=== PATIENT | male | born 1965 | race Caucasian/White ===

== ENCOUNTER → 2018-09-23 14:42 | Outpatient (CLI) | payer BC, SELFPAY ==
[2018-09-23 15:42] LABS: PSA,Total - Annual Screen 3.61 ng/mL (0.00-4.00)
== END ==
PROVIDERS: Family Provider Family Medicine; PCP Family Medicine; Referring Provider Urology; Visit Provider Urology
DX: N40.0 Benign prostatic hyperplasia without lower urinary tract symptoms (principal); Z12.5 Encounter for screening for malignant neoplasm of prostate
CPT/HCPCS: 36415; 84153; G0103

== ENCOUNTER → 2020-10-25 15:07 | Outpatient (CLI) | payer BC, SELFPAY ==
[2020-10-25 16:37] LABS: PSA,Total - Annual Screen 3.36 ng/mL (0.00-4.00)
== END ==
PROVIDERS: PCP Family Medicine; Referring Provider Urology; Visit Provider Urology
DX: Z12.5 Encounter for screening for malignant neoplasm of prostate (principal)
CPT/HCPCS: 36415; 84153; G0103

== ENCOUNTER 2022-02-24 12:07 | Outpatient (CLI) | payer BC, SELFPAY ==
[2022-02-24 15:44] LABS: Anion Gap 10 (5-15); BUN 19 mg/dL (7-18); BUN/Creat Ratio 21.2 RATIO (10-20); Calcium,Total 9.6 mg/dL (8.5-10.1); Chloride 104 mmol/L (98-107); Cholesterol 216 mg/dL (200); EST Glomerular Filtration Rate 92 mL/min (>60); Est Glom Filt Rate - Afr Amer 111 mL/min (>60); Glucose 85 mg/dL (74-106); High Density Lipoprotein 93 mg/dL; Potassium 3.7 mmol/L (3.5-5.1); Sodium Level 140 mmol/L (136-145); Triglycerides 67 mg/dL; Very Low Density Lipoprotein 13 mg/dL (5-40)
== END 2022-02-24 23:59 | disposition home or self-care (01) ==
LOC: MFPLAB 12:08
PROVIDERS: PCP Family Medicine; Referring Provider Family Medicine; Visit Provider Family Medicine
DX: I10 Essential (primary) hypertension (principal)
CPT/HCPCS: 36415; 80048; 80061

== ENCOUNTER → 2022-04-25 | Outpatient (CLI) | payer BC, SELFPAY ==
[2022-04-25 15:42] LABS: Hematocrit 46.2 % (40-54); Hemoglobin 15.7 g/dL (13.0-16.5); Mean Corpuscular Hgb 33.6 pg (27.0-32.0); Mean Corpuscular Volume 98.9 fL (80-94); Mean Platelet Vol. 9.4 fl (6.2-12.0); Platelet Count 273 K/mm3 (150-450); RBC Distribution Width CV 12.7 % (11.6-14.6); RBC Distribution Width SD 46.2 fl (35.1-43.9); Red Blood Count 4.67 M/mm3 (4.6-6.2); White Blood Count 5.7 K/mm3 (4.4-11.0)
[2022-04-25 16:04] LABS: Vitamin B12 327 pg/mL (211-911)
[2022-04-25 16:35] LABS: Thyroid Stim Hormone (TSH) 3.57 uIU/mL (0.358-3.74)
== END | disposition home or self-care (01) ==
PROVIDERS: PCP Family Medicine; Referring Provider Psychiatry & Neurology Neurology; Visit Provider Psychiatry & Neurology Neurology
DX: G25.0 Essential tremor (principal)
CPT/HCPCS: 36415; 82607; 84443; 85027

== ENCOUNTER → 2022-06-01 | Outpatient (CLI) | payer BC, SELFPAY ==
[2022-06-01 14:16] LABS: PSA,Total - Annual Screen 3.61 ng/mL (0.00-4.00)
== END | disposition home or self-care (01) ==
LOC: LAB 13:15
PROVIDERS: PCP Family Medicine; Referring Provider Urology; Visit Provider Urology
DX: Z12.5 Encounter for screening for malignant neoplasm of prostate (principal)
CPT/HCPCS: 36415; 84153; G0103

== ENCOUNTER → 2023-05-14 | Outpatient (CLI) | payer BC, SELFPAY ==
[2023-05-14 15:18] LABS: Protein, Urine (Random) 30.6 mg/dL (<11.9); Protein:Creat Ratio 152 mg/g CRE (0-200)
[2023-05-14 15:34] LABS: Anion Gap 6 (5-15); BUN 39 mg/dL (7-18); BUN/Creat Ratio 28.7 RATIO (10-20); Calcium,Total 9.6 mg/dL (8.5-10.1); Chloride 104 mmol/L (98-107); Cholesterol 229 mg/dL (200); Creatinine, Serum 1.36 mg/dL (0.70-1.30); EST Glomerular Filtration Rate 57 mL/min (>60); Est Glom Filt Rate - Afr Amer 69 mL/min (>60); Glucose 111 mg/dL (74-106); High Density Lipoprotein 54 mg/dL; PSA,Total - Annual Screen 4.53 ng/mL (0.00-4.00); Potassium 3.7 mmol/L (3.5-5.1); Sodium Level 139 mmol/L (136-145); Triglycerides 161 mg/dL; Very Low Density Lipoprotein 32 mg/dL (5-40)
[2023-05-14 15:51] LABS: Vitamin B12 640 pg/mL (211-911)
== END | disposition home or self-care (01) ==
LOC: MFPLAB 13:45
PROVIDERS: PCP Family Medicine; Visit Provider Family Medicine
DX: Z12.5 Encounter for screening for malignant neoplasm of prostate (principal); I10 Essential (primary) hypertension; F32.A Depression, unspecified
CPT/HCPCS: 36415; 80048; 80061; 82570; 82607; 84153; 84156; G0103

== ENCOUNTER → 2023-09-07 | Outpatient (CLI) | payer BC, SELFPAY ==
[2023-09-07 17:39] LABS: Absolute Lymphocyte Count 1.03 X10^3/uL (0.83-4.51); Absolute Neutrophil Count 3.8 X10^3/uL (2.0-7.7); Basophil# 0.04 X10^3/uL; Basophil% 0.7 % (0-1); Eosinophil# 0.13 X10^3/uL; Eosinophils% 2.4 % (0-5); Hematocrit 39.1 % (40-54); Hemoglobin 13.3 g/dL (13.0-16.5); Lymphocyte # 1.03 X10^3/ul (0.83-4.51); Lymphocyte % 18.7 % (19-41); Mean Corpuscular Hgb 33.4 pg (27.0-32.0); Mean Corpuscular Volume 98.2 fL (80-94); Mean Platelet Vol. 9.6 fl (6.2-12.0); Monocyte# 0.47 X10^3/uL; Monocyte% 8.5 % (0-10); NRBC Flagged by Analyzer 0 % (0-5); Neutrophil # 3.82 X10^3/uL (2.7-7.7); Neutrophil % 69.5 % (47-70); Platelet Count 265 K/mm3 (150-450); RBC Distribution Width SD 46.2 fl (35.1-43.9); Red Blood Count 3.98 M/mm3 (4.6-6.2); White Blood Count 5.5 K/mm3 (4.4-11.0)
[2023-09-07 18:14] LABS: AST(SGOT) 39 U/L (15-37); Alanine Aminotransfer ALT/SGPT 42 U/L (16-61); Albumin, Serum 3.7 g/dL (3.2-5.0); Alkaline Phosphatase 95 U/L (45-117); Anion Gap 9 (5-15); BUN 17 mg/dL (7-18); Calcium,Total 9.2 mg/dL (8.5-10.1); Chloride 109 mmol/L (98-107); Creatinine, Serum 1.06 mg/dL (0.70-1.30); EST Glomerular Filtration Rate 76 mL/min (>60); Est Glom Filt Rate - Afr Amer 92 mL/min (>60); Globulin 3.6 g/dL (2.2-4.2); Glucose 93 mg/dL (74-106); Potassium 3.9 mmol/L (3.5-5.1); Protein, Total 7.3 g/dL (6.4-8.2); Sodium Level 143 mmol/L (136-145); Thyroid Stim Hormone (TSH) 3.74 uIU/mL (0.358-3.74)
== END | disposition home or self-care (01) ==
LOC: MFPLAB 15:27
PROVIDERS: PCP Family Medicine; Visit Provider Family Medicine
DX: R00.0 Tachycardia, unspecified (principal)
CPT/HCPCS: 36415; 80053; 84443; 85025

== ENCOUNTER → 2023-09-10 | Outpatient (CLI) | payer BC, SELFPAY ==
[2023-09-10 17:18] LABS: Vitamin B12 453 pg/mL (211-911)
== END | disposition home or self-care (01) ==
LOC: MFPLAB 10:59
PROVIDERS: PCP Family Medicine; Visit Provider Family Medicine
DX: E78.5 Hyperlipidemia, unspecified (principal)
CPT/HCPCS: 36415; 82607; 82746

== ENCOUNTER → 2023-11-30 | Outpatient (CLI) | payer BC, SELFPAY ==
[2023-11-30 14:43] LABS: PSA,Total- Diagnostic 3.43 ng/mL (0.0-4.0)
== END | disposition home or self-care (01) ==
LOC: LAB 13:17
PROVIDERS: PCP Family Medicine; Referring Provider Urology; Visit Provider Urology
DX: R97.20 Elevated prostate specific antigen [PSA] (principal)
CPT/HCPCS: 36415; 84153

== ENCOUNTER → 2024-05-20 | Outpatient (CLI) | payer BC, SELFPAY ==
--- NOTE | 2024-05-20 11:10 | RAD_ITS ---
EXAM: XR Right Hip With Pelvis When Performed, 2 or 3 Views CLINICAL INDICATION: PAIN TECHNIQUE: Two or three views of the right hip with pelvis when performed. COMPARISON: No relevant prior studies available. FINDINGS: BONES/JOINTS: Moderate degenerative changes of the hip joint. No acute fracture. No dislocation. SOFT TISSUES: Unremarkable. RAD/HIP, UNI W/ Pelvis 2-3 Views IMPRESSION: Degenerative changes as above. Reading Location: [facility]
[2024-05-20 19:05] LABS: Anion Gap 17 (5-15); BUN 28 mg/dL (4-19); BUN/Creat Ratio 22.9 RATIO (10-20); Calcium,Total 9.8 mg/dL (7.6-11.0); Carbon Dioxide 19.4 mmol/L (21.0-32.0); Chloride 100 mmol/L (98-108); Cholesterol 115 mg/dL (<=200); Creatinine, Serum 1.22 mg/dL (0.70-1.20); EST Glomerular Filtration Rate 67 (>60); Glucose 90 mg/dL (70-99); High Density Lipoprotein 55 mg/dL; Low Density Lipoprotein Calc. 33 mg/dL; PSA,Total - Annual Screen 3.51 ng/mL (0.02-4.00); Sodium Level 137 mmol/L (133-145); Triglycerides 137 mg/dL; Very Low Density Lipoprotein 27 mg/dL (5-40); cholesterol:hdl ratio screen 2.09
[2024-05-20 19:36] LABS: Protein, Urine (Random) 30.1 mg/dL (0.0-12.0); Protein:Creat Ratio 141 mg/g CRE (0-200)
[2024-05-20 23:17] LABS: Vitamin B12 1142 pg/mL (211-911)
== END | disposition home or self-care (01) ==
PROVIDERS: PCP Family Medicine; Referring Provider Family Medicine; Visit Provider Family Medicine
DX: M25.551 Pain in right hip (principal); F32.A Depression, unspecified; I10 Essential (primary) hypertension; Z12.5 Encounter for screening for malignant neoplasm of prostate
CPT/HCPCS: 36415; 73502; 80048; 80061; 82570; 82607; 84153; 84156; G0103

== ENCOUNTER → 2025-02-03 | Outpatient (CLI) | payer BC, SELFPAY ==
[2025-02-03 17:58] LABS: AST(SGOT) 37 U/L (<=37); Alanine Aminotransfer ALT/SGPT 41 U/L (<=46); Albumin, Serum 4.5 g/dL (3.4-4.8); Alkaline Phosphatase 105 U/L (40-129); Anion Gap 16 (5-15); BUN 41 mg/dL (4-19); BUN/Creat Ratio 27.1 RATIO (10-20); Calcium,Total 10.3 mg/dL (7.6-11.0); Carbon Dioxide 25.5 mmol/L (21.0-32.0); Chloride 98 mmol/L (98-108); Globulin 3.3 g/dL (2.2-4.2); Glucose 106 mg/dL (70-99); Potassium 3.5 mmol/L (3.3-5.1)
[2025-02-03 18:03] LABS: Creatinine, Urine (random) 194.00 mg/dL (39.00-259.00); Microalbumin,Random Urine 29.7 mg/L (<20 mg/L)
[2025-02-03 18:16] LABS: Hematocrit 40.5 % (40-54); Hemoglobin 13.7 g/dL (13.0-16.5); Immature Granulocytes Count 0.030 X10^3/uL (0.0-0.0); Mean Corp Hgb Conc 33.8 g/dL (32-36); Mean Corpuscular Volume 93.5 fL (80-94); Mean Platelet Vol. 10.0 fl (6.2-12.0); NRBC Flagged by Analyzer 0 % (0-5); Platelet Count 292 K/mm3 (150-450); RBC Distribution Width CV 12.8 % (11.6-14.6); RBC Distribution Width SD 43.7 fl (35.1-43.9); Red Blood Count 4.33 M/mm3 (4.6-6.2); White Blood Count 6.1 K/mm3 (4.4-11.0)
--- OUTSIDE RECORDS SUMMARY | 2025-02-03 18:33 | XMS RPT_ITS | CCD ---
Author Organization [facility] CliniSyct Care Team Providers Care Website Developer Name Role Phone Serenity Marcos Unavailable Unavailable Nicole, Marlon Santiago Unavailable Unavailable Nicole, Dylan Unavailable Unavailable Thomae, Tam R Unavailable Unavailable Jollhyun, Serenity Sierra Unavailable Unavailable Thomae, Tam R Unavailable Unavailable JoSerenity hernandez Unavailable Unavailable Serenity Marcos Unavailable Unavailable Tam Odonnell R Unavailable Unavailable Dr. Serenity Marcos Primary Care Provider Dr. Serenity Marcos Referring Provider Dr. Franky Horta Attending Provider Dr. Serenity Marcos Primary Care Provider [phone] Serenity Marcos Referring Provider Dr. Franky Horta Attending Provider Serenity Marcos Unavailable Perez Pickens Unavailable Dr. Perez Pickens Attending Unavail Dr. Serenity Romeo Primary Care Unavail Dr. Serenity Romeo Primary Care Provider [phone] Serenity Marcos Referring Provider [phone] Franky Horta Attending Provider Serenity Marcos MD Primary Care Provider [phone] Dr. Serenity Marcos MD Primary Care Provider [phone] Dr. Serenity Marcos MD Attending Provider Dr. Serenity Marcos MD Referring Provider Dr. Franky Horta MD Attending Provider JOLLIFF, SERENITY ADRIEN Primary Care Unavailable SYSTEM, PROVIDER NOT IN Referring Unavaila ble BRE, PROVIDER NOT IN Attending Unavaila Genaro Benavides Attending Unavailable Jolliff, Serenity S Primary Care Unavailable Jolliff, Serenity S Referring Unavailable Jolliff, Serenity S Primary Care Unavailable Jolliff, Serenity S Attending Unavailable Franky Horta Attending Unavailable Jolliff, Serenity S Primary Care Unavailable Jolliff, Serenity S Referring Unavailable GARRISONYVETTE Admitting Unavailable JOLLIFF, SERENITY ADRIEN Primary Care Unavailable ROSA MXIMENA Attending Unavailable GARRISONYVETTE BELTRAN Referring Unavailable GARRISON, YVETTE OLIVEIRA Admitting Unavailable JOLLIFF, SERENITY ADRIEN Primary Care Unavailable ROSA MXIMENA Attending Unavailable GARRISONYVETTE Referring Unavailable JOLLIFF, SERENITY ADRIEN Primary Care Unavailable JOLLIFF, SERENITY ADRIEN Admitting Unavailable XIMENA CAMARA Attending Unavailable YVETTE GARRISON Referring Unavailable GARRISONYVETTE Attending Unavailable JOLLIFF, SERENITY ADRIEN Primary Care Unavailable GARRISONYVETTE Referring Unavailable JOLLIFF, SERENITY ADRIEN Primary Care Unavailable CRISTO CERVANTES Attending Unavailab le CRISTO CERVANTES Referring Unavailab le JOLLIFF, SERENITY ADRIEN Primary Care Unavailable CRISTO CERVANTES Admitting Unavailab le BILLY, CRISTO LOZA Referring Unavailab le GARRISONYVETTE Admitting Unavailable JOLLIFF, SERENITY ADRIEN Primary Care Unavailable XIMENA CAMARA Attending Unavailable YVETTE GARRISON Referring Unavailable JOLLIFF, SERENITY ADRIEN Primary Care Unavailable CRISTO CERVANTES Admitting Unavailab le BILLY, CRISTO LOZA Attending Unavailab le GARRISONYVETTE Admitting Unavailable JOLLIFF, SERENITY ADRIEN Primary Care Unavailable MISAEL BONILLA Attending Unavailable YVETTE GARRISON Referring Unavailable JOLLIFF, SERENITY ADRIEN Admitting Unavailable JOLLIFF, SERENITY ADRIEN Primary Care Unavailable XIMENA CAMARA Attending Unavailable YVETTE GARRISON Referring Unavailable GARRISONYVETTE Admitting Unavailable JOLLIFF, SERENITY ADRIEN Primary Care Unavailable YVETTE GARRISON Referring Unavailable MISAEL BONILLA Attending Unavailable MIK FORBES Attending Unavailable JOLLIFF, SERENITY ADRIEN Primary Care Unavailable PEPE KARIMI Attending Unavailable JOLLIFF, SERENITY ADRIEN Primary Care Unavailable CRISTO CERVANTES Attending Unavailab le JOLLIFF, SERENITY ADRIEN Primary Care Unavailable SAMMIE STOREY Attending Unavailable CRISTO CERVANTES Admitting Unavailab CRISTO Duque Referring Unavailab le JOLLIFF, SERENITY ADRIEN Primary Care Unavailable YVETTE GARRISON Attending Unavailable JOLLIFF, SERENITY ADRIEN Primary Care Unavailable YVETTE GARRISON Admitting Unavailable GARRISONYVETTE BELTRAN Referring Unavailable JOLLIFF, SERENITY ADRIEN Primary Care Unavailable GARRISONYVETTE SHAFFER Attending Unavailable JOLLIFF, SERENITY ADRIEN Primary Care Unavailable JOLLIFF, SERENITY ADRIEN Referring Unavailable JOLLIFF, SERENITY ADRIEN Admitting Unavailable CRISTO CERVANTES Attending Unavailab le JOLLIFF, SERENITY ADRIEN Primary Care Unavailable Allergies Allergy Classification Reported Allergen(s) Allergy Type Date of Onset Reaction(s) Facility (1 source) acetaminophen / HYDROcodone; Translations: [Vicodin] Drug Allergy [facility] Repository (1 source) Egg; Translations: [Eggs] Propensity to adverse reactions to drug (disorder) [facility] Repository (13 sources) Acetaminophen / HYDROcodone; Translations: [HYDROCODONE-ACET AMINOPHEN] Drug Allergy 5 Unknown, Nausea and vomiting [facility] (5 sources) egg extract; Translations: [EGG] Drug Allergy [address] [facility] Medications Current Medications Medication Drug Class(es) Dates Sig (Normalized) Sig (Original) acetaminophen 325 mg oral tablet (1 source) Start: 12-31-2024 End: 01-10-2025 take 2 tablets by mouth every four hours as needed acetaminophen (TYLENOL) 325 MG tablet Take 2 (two) tablets (650 mg total) by mouth every 4 (four) hours as needed . 30 tablet 12/31/2024 3:11 PM EDT 12/31/2024 01/10/2025 Active aspirin 81 mg delayed release oral tablet (8 sources) Platelet Aggregation Inhibitor, Nonsteroidal Anti-inflammatory Drug Start: 12-31-2024 End: 02-14-2025 take 1 tablet by mouth twice daily in the evening aspirin 81 MG EC tablet Take 1 (one) tablet (81 mg total) by mouth 2 (two) times a day . 90 tablet 12/31/2024 3:11 PM EDT 12/31/2024 02/14/2025 Active Start: 05-27-2024 take 1 tablet by mouth once da payam Aspirin 81 mg tablet Active 81 mg PO daily May 27, 2024 12:00am take 1 tablet by mouth once gonzalo y aspirin 81 MG EC tablet Take 1 (one) tablet (81 mg total) by mouth daily . Active celecoxib 200 mg oral capsule (4 sources) Nonsteroidal Anti-inflammatory Drug Start: 12-31-2024 End: 01-30-2025 take 1 capsule by mouth twice daily in the evening celecoxib (CELEBREX) 200 MG capsule Indications: Status post total replacement of right hip Take 1 (one) capsule (200 mg total) by mouth 2 (two) times a day . 60 capsule 12/31/2024 3:11 PM EDT 12/31/2024 01/30/2025 Active cephalexin 500 mg oral capsule (1 source) Cephalosporin Antibacterial Start: 12-31-2024 End: 01-07-2025 take 1 capsule by mouth three times daily in the evening cephALEXin (KEFLEX) 500 MG capsule Take 1 (one) capsule (500 mg total) by mouth 3 (three) times a day for 7 days . 21 capsule 12/31/2024 3:11 PM EDT 12/31/2024 01/07/2025 Active cetirizine hydrochloride 10 mg oral capsule (5 sources) Histamine-1 Receptor Antagonist Start: 04-25-2022 take 1 capsule by mouth once daily Cetirizine (Allergy Relief (Cetirizine)) 10 mg capsule Active 10 mg PO DAILY April 25, 2022 1:00am cyclobenzaprine hydrochloride 10 mg oral tablet (1 source) Muscle Relaxant Start: 12-31-2024 End: 01-10-2025 take 1 tablet by mouth three times daily as needed for muscle spasms cyclobenzaprine (FLEXERIL) 10 MG tablet Take 1 (one) tablet (10 mg total) by mouth 3 (three) times a day as needed for muscle spasms . 30 tablet 12/31/2024 3:11 PM EDT 12/31/2024 01/10/2025 Active [place] 5-Lls-Fjm-Fish Oil (4 sources) Start: 04-25-2022 [place] 2-Bso-Qya-Fish Oil (Fish Oil) 300-1,000 mg capsule Active 1 NMA PO DAILY April 25, 2022 1:00am Start: 04-25-2022 take 300-1000 mg by mouth once daily [place] 2-Yej-Skp-Fish Oil (Fish Oil) 300-1,000 mg capsule Active 1 CAP PO DAILY April 25, 2022 1:00am Start: 04-25-2022 take 300-1000 mg by mouth once daily [place] 4-Lne-Sxq-Fish Oil (Fish Oil) 300-1,000 mg capsule Active 1 CAP PO DAILY April 25, 2022 12:00am docusate sodium 50 mg / sennosides, pen[facility] 8.6 mg oral tablet (4 sources) Start: 12-31-2024 End: 01-30-2025 take 1 tablet by mouth twice daily in the evening senna-docusate (SENNA-S) 8.6-50 mg Take 1 (one) tablet by mouth 2 (two) times a day . 60 tablet 12/31/2024 3:11 PM EDT 12/31/2024 01/30/2025 Active glucosamine/chondr rai A sod (OSTEO BI-FLEX ORAL) (5 sources) glucosamine/felisa dr rai A sod (OSTEO BI-FLEX ORAL) Take by mouth . Active hydroCHLOROthiazide 25 mg / losartan potassium 100 mg oral tablet (20 sources) Thiazide Diuretic, Angiotensin 2 Receptor You Start: 05-20-2024 losartan-hydrochlo rothiazide (HYZAAR) 100-25 mg per tablet 05/20/2024 Active Start: 08-14-2023 take 1 tablet by get th once daily losartan-hydrochlorothiazide (HYZAAR) 10 0-25 mg per tablet Take 1 (one) tablet by mouth daily . 05/20/2024 Active take 1 tablet by get th once daily Hyzaar 50 mg-12.5 mg oral tablet ; 1 tab (s) orally once a day Quantity: 0 Refills: 0 Ordered: 21-Sep-2022 Gia Nolasco Generic Substitution Allowed magnesium oxide-herbal drugs (Beet Root-Magnesium) 150 mg Tab (7 sources) magnesium oxide- herbal drugs (Beet Root-Magnesium) 150 mg Tab Take by mouth . Active multivitamin (THERAGRAN) per tablet (7 sources) take 1 tablet by mouth once daily multivitamin (THERAGRAN) per tablet Take 1 (one) tablet by mouth daily . Active Multivitamin preparation (3 sources) Start: 04-25-2022 take 1 tablet by mouth once daily Multivitamin Active 1 TABLET PO DAILY April 25, 2022 1:00am Start: 04-25-2022 take 1 tablet by get th once daily Multivitamin Active 1 TABLET PO DAILY April 25, 2022 12:00am Multivitamin tablet (1 source) Start: 04-25-2022 Multivitamin tablet Active 1 {tbl} PO DAILY April 25, 2022 1:00am nabumetone 750 mg oral tablet (19 sources) Nonsteroidal Anti-inflammatory Drug Start: 06-17-2024 End: 06-17-2025 take 1 tablet by mouth twice daily nabumetone (RELAFEN) 750 MG tablet Take 1 (one) tablet (750 mg total) by mouth 2 (two) times a day . 60 tablet 06/17/2024 06/17/2025 Active omega-3 fatty acids/fish oil (fish oil-omega-3 fatty acids) 300-1,000 mg capsule (20 sources) take 2 capsules by mouth once daily omega-3 fatty acids/fish oil (fish oil-omega-3 fatty acids) 300-1,000 mg capsule Take 2 (two) capsules by mouth daily . Active pantoprazole 20 mg delayed release oral tablet (4 sources) Proton Pump Inhibitor Start: 01-01-2025 End: 01-31-2025 take 1 tablet by mouth once daily in the evening pantoprazole (PROTONIX) 20 MG tablet Take 1 (one) tablet (20 mg total) by mouth daily Start: 01/01/25. 30 tablet 12/31/2024 3:11 PM EDT 01/01/2025 01/31/2025 Active 24 hr propranolol hydrochloride 120 mg extended release oral capsule (20 sources) beta-Adrenergic You Start: 04-17-2024 propranoloL (INDERAL LA) 120 MG 24 hr capsule 04/17/2024 Active Start: 03-06-2023 End: 05-27-2024 take 1 capsule by mouth once daily propranoloL (INDERAL LA) 120 MG 24 hr capsule Take 1 (one) capsule (120 mg total) by mouth daily . 04/17/2024 Active Start: 02-27-2023 End: 03-06-2023 take 1 capsule by mouth once daily Propranolol 80 mg capsule,extended release 24 hr Discontinued 80 mg PO DAILY February 27, 2023 1:00am March 06, 2023 5:29pm Start: 04-25-2022 End: 02-27-2023 take 1 capsule by mouth once daily Propranolol 60 mg capsule,extended release 24 hr Discontinued 60 mg PO DAILY August 29, 2022 9:07am February 27, 2023 2:37pm propranolol 60 m g oral tablet ; orally once a day Quantity: 0 Refills: 0 Ordered: 21-Sep-2022 Gia Nolasco Generic Substitution Allowed rosuvastatin calcium 10 mg oral tablet (20 sources) HMG-CoA Reductase Inhibitor Start: 08-14-2023 rosuvastatin (CRESTO R) 10 MG tablet Take by mouth daily . 05/24/2024 Active traMADol hydrochloride 50 mg oral tablet (2 sources) Opioid Agonist Start: 01-16-2025 End: 01-23-2025 traMADol (Ultram) 50 mg tablet Indications: Status post total replacement of right hip Take 1 (one) tablet (50 mg total) by mouth every 6 (six) hours as needed for pain (Days supply per fill: 7) . 28 tablet 01/16/2025 01/23/2025 Active Start: 12-31-2024 End: 01-07-2025 traMADol (ULTRAM) 50 mg tabl et Indications: Status post total replacement of right hip Take 1 (one) tablet to 2 (two) tablets (50-100 mg total) by mouth every 6 (six) hours as needed (Days supply per fill: 7) . 40 tablet 12/31/2024 3:11 PM EDT 12/31/2024 01/07/2025 Active Completed/Discontinued Medications Medication Drug Class(es) Dates Sig (Normalized) Sig (Original) atenolol 25 mg oral tablet (4 sources) beta-Adrenergic You Start: 04-25-2022 End: 04-25-2022 take 1 tablet by mouth once daily Atenolol 25 mg tablet Discontinued 25 mg PO DAILY April 25, 2022 1:00am April 25, 2022 12:16pm doxazosin 4 mg oral tablet (5 sources) alpha-Adrenergic You Start: 04-25-2022 End: 02-27-2023 take 1 tablet by mouth once daily Doxazosin 4 mg tablet Discontinued 4 mg PO DAILY April 25, 2022 1:00am February 27, 2023 2:37pm DULoxetine 60 mg delayed release oral capsule (5 sources) Serotonin and Norepinephrine Reuptake Inhibitor Start: 04-25-2022 End: 03-06-2023 take 1 capsule by mouth once daily Duloxetine 60 mg capsule,delayed release(DR/EC) Discontinued 60 mg PO DAILY April 25, 2022 1:00am March 06, 2023 5:27pm omeprazole 40 mg delayed release oral capsule (5 sources) Proton Pump Inhibitor Start: 04-25-2022 End: 08-14-2023 take 1 capsule by mouth once daily Omeprazole 40 mg capsule,delayed release(DR/EC) Discontinued 40 mg PO DAILY April 25, 2022 1:00am August 14, 2023 12:56pm predniSONE 50 mg oral tablet (13 sources) Start: 06-17-2024 End: 08-28-2024 take 1 tablet by mouth once daily predniSONE (DELTASONE) 50 MG tablet Take 1 (one) tablet (50 mg total) by mouth daily . 5 tablet 06/17/2024 08/28/2024 Discontinued (Patient's Request) Problems Active Problems Problem Classification Problem Date Documented Date Episodic/Chronic Essential hypertension (20 sources) Hypertensive disorder; Translations: [Unspecified essential hypertension] Onset: 09-22-2022 09-22-2022 Chronic Malaise and fatigue (2 sources) Fatigue; Translations: [Other fatigue] 10-29-2022 Episodic Nonspecific chest pain (6 sources) Chest pain; Translations: [Chest pain, unspecified] Onset: 09-22-2022 09-21-2022 Episodic Comment on above: CHEST PAIN Osteoarthritis (20 sources) Osteoarthritis of right hip joint; Translations: [Unilateral primary osteoarthritis, right hip] Onset: 07-16-2024 06-19-2024 Chronic Other aftercare (1 source) Other keno terminal operator (current) drug therapy; Translations: [Other keno terminal operator (current) drug therapy] Onset: 09-22-2022 Episodic Other connective tissue disease (3 sources) History of total hip arthroplasty; Translations: [Presence of right artificial hip joint] 01-16-2025 Chronic Other connective tissue disease (4 sources) Presence of right artificial hip joint; Translations: [Presence of right artificial hip joint] Onset: 12-31-2024 Chronic Other hereditary and degenerative nervous system conditions (5 sources) Essential tremor; Translations: [Essential tremor] 04-25-2022 Chronic Other hereditary and degenerative nervous system conditions (2 sources) Essential tremor; Translations: [Essential and other specified forms of tremor] 04-25-2022 Chronic Other non-traumatic joint disorders (3 sources) Hip pain; Translations: [Pain in right hip] 06-05-2024 Episodic Unclassified (10 sources) Autogenerated Problem Onset: 09-05-2024 09-05-2024 Past or Other Problems Problem Classification Problem Date Documented Da te Episodic/Chronic Esophageal disorders (11 sources) Esophagitis; Translations: [Esophagitis] Onset: 02-17-2005 09-03-2024 Episodic Other non-traumatic joint disorders (3 sources) Pain in right hip; Translations: [Pain in right hip] Onset: 05-30-2024 Episodic Residual codes; unclassified (2 sources) Pain, unspecified; Translations: [Pain, unspecified] Onset: 06-17-2024 Episodic Results Test Name Value Interpretation Reference Range Facility OP NOTEon 12-31-2024 OP NOTE ATTENDING PHYSICIAN CRISTO CERVANTES MD PRIMARY CARE PHYSICIAN SERENITY MARCOS MD ADMITTING PHYSICIAN CRISTO CERVANTES MD PREOPERATIVE DIAGNOSIS Right hip degenerative arthrosis. POSTOP DIAGNOSIS Right hip degenerative arthrosis. PROCEDURE Robotic-assisted right total hip replacement. Spinal anesthetic. No intraoperative complications. SPECIMENS Bone. ESTIMATED BLOOD LOSS 100 cc. APPROACH Posterior. HISTORY Wilmer is a 59-year-old patient significant history of right hip degenerative arthrosis, unresponsive to conservative measures; for further details see admission history and physical examination, explained all risks, complications of surgery including, but not limited to other risk of infection, bleeding, neurologic or vascular injury, the possibility of deep venous thrombosis, pulmonary embolism, myocardial infarction, stroke, or even with surgery. Explained the possibilities of continued pain, stiffness, loss of range of motion, as well as need for future surgery, talked about the possibility of leg length discrepancy, septic or aseptic loosening, fracture during or after the case, as well as dislocation. Patient understands that at this time consents for surgical intervention. PROCEDURE IN DETAIL Patient met in the preoperative holding area where the right hip was confirmed to be the appropriate site and marked by myself. Patient was taken to the operative suite, given preoperative Kefzol per protocol, as well as a spinal anesthetic, placed in the left lateral decubitus position. Right hip was then sterilely prepped and draped using ChloraPrep solution. After sterilization of the right hip we did our final timeout to confirm that the right hip was in fact the appropriate site that had been marked by myself. We then went and made our skin incision over the iliac crest and synchronized the iliac crest with the robot. We then made our skin incision over the greater trochanter coursing posteriorly. Iliotibial band and gluteal fascia were split in line with skin incision. At this time, the proximal femoral checkpoint was placed. After the femur was synchronized with the robot and the iliac crest was synchronized with the robot, we then went ahead and did our posterior approach to the hip, removing the piriformis and short external rotators off the proximalfemur. Femoral head was dislocated. Osteotomy cut was made. Deep retractors were placed. Acetabulum was cleaned of all redundant tissue, robotically mapped and reamed to a size 52 shell. We did IrriSept irrigation, injected local anesthetic around the acetabulum. We then went ahead and placed our size 52 Trident PSL acetabular shell in 25 degrees of anteversion, 40 degrees of lateral inclination using robotic assistance. After the acetabular shell was in place, there was excellent fit and fill. No screws were felt required. We then placed our ultra-high molecular weight polyethylene to accept a 36 mm head. We then went to the femur, did sequential broaching, settled on a size 4 stem with a 36 x 0 femoral head. After the implants were selected, we injected local anesthetic around the proximal femur. We then placed our final femoral implant, as well as our final femoral head. Hip was reduced at this time. The leg lengths were felt to be equal. There was excellent stability. X-ray confirmed good positioning of all implants. We then went ahead and did our final copious Surgiphor, as well as IrriSept irrigation. We sprinkled 1 g of vancomycin powder throughout the contact surface areas of the right hip. Piriformis and short external rotators were reapproximated using #2 Vicryl. On Q pain catheter was placed deep to the iliotibial band and gluteal fascia. #1 StrataFix was used to reapproximate iliotibial band and gluteal fascia. Final series of local was injected subcutaneously. 2-0 and 3-0 Stratafix were used to reapproximate skin edges. Prineo dressing was applied, as well as a Mepilex dressing. Patient was then taken to PACU without intraoperative complication. D 12/31/2024 09:11 [id number] T 12/31/2024 09:42 MCB/MODL AUTHENTICATED BY CRISTO CERVANTES, ON 12/31/2024 17:20:52 Normal [facility] POC GLUCOSE - [facility] 025 Glucose [Mass/Vol] 84 mg/dL Normal 65-99 [facility] Glucose [Mass/Vol] 132 mg/dL High 65-99 [facility] TISSUE EXAMon 12-31-2024 TISSUE EXAM Surgical Pathology Report Case: [id number] Authorizing Provider: Cristo Cervantes MD Collected: 12/31/2024 08:03 AM Ordering Location: [facility] Periop Received: 12/31/2024 12:36 PM Pathologist: Mustapha Dominguez IV, MD Specimen: Femoral Head, Right, femoral head A. Hip, Right, total arthroplasty: Total hip arthroplasty with findings consistent with degenerative joint disease. at 1223 EDT Primary osteoarthritis of right hip [M16.11] A. The specimen is received in formalin designated femoral head, right and consists of a femoral head with attached femoral neck measuring 4.9 x 4.8 x 6 cm. The articular surface is coarsely granular and eroded. Osteophytes are present. The attached femoral neck is intact and the underlying cancellous bone appears sclerotic with a small well demarcated yellow lesion near the fovea measuring 1.5 x 1.5 x 1 cm. A scant amount of soft tissue is present. The specimen is submitted for decalcification. Cassettes 1 and 2 contain motor vehicle representative sections. JK Gross examination performed at: [facility] - [address] [place] [address] Microscopic examination is performed. Normal [facility] Comment on above: Performed By: #### [id number] ####[address] [address] Jesse Triplett M.D. [id number] XR HIP RIGHT 2-3 VIEWS (ROUT INE)on 12-31-2024 XR HIP RIGHT 2-3 VIEWS (ROUTINE) EXAMINATION: XR HIP RIGHT 2-3 VIEWS (ROUTINE) 12/31/2024 9:00 am HISTORY: ORDERING SYSTEM PROVIDED HISTORY: R YIMI, TECHNOLOGIST PROVIDED HISTORY: Illness/Other Reason for exam: R YIMI Cancer History: u Surgery, RadiationHistory: u Encounter Type: Subsequent/Follow-up Additional signs and symptoms: R HIP PAIN ORDERING SYSTEM PROVIDED DIAGNOSIS CODES: M16.11 Primary osteoarthritis of right hip Z01.812 Blood tests prior to treatment or procedure IMPRESSION: FINDINGS/ Arthroplasty without complication. No acute fracture or dislocation Workstation ID: [id number] Dictated by: PETER WHITTINGTON on SunDec 31, 2024 12:28:05 PM EDT Transcribed by: PETER WHITTINGTON on SunDec 31, 2024 12:28:05 PM EDT Finalized by: PETER WHITTINGTON on SunDec 31, 2024 12:28:05 PM EDT [facility] Comment on above: Order Comment: Injur y/Trauma or Illness?:Illness/OtherHow long have you had these symptoms (acute/chronic)?:UnknownReason for exam?:R THAHistory of cancer?:uSurgeries, chemotherapy, or radiation?:uType of Exam?:Subsequent/Follow-upAdditional signs and symptoms?:R HIP PAIN ECG 12 Leadon 12-17-2024 Sinus Rhythm WITHIN NORMAL LIMITS [place] ECG 12 LeadOrdered By: Daniela Cannon on 12-17-2024 [facility] Work Phone: ECG 12-LEADon 12-17-2024 ECG 12-LEAD Sinus Rhythm WITHIN NORMAL LIMITS [facility] MRSA CultureOrdered By: Stevan Nazario on 12-13-2024 MRSA isol Org specific cx Ql (Unsp spec) No Methicillin Resistant Staphylococcus (MRSA) Isolated [facility] MRSA isol Org specific cx Ql (Unsp spec)Ordered By: Jose Nazario on 12-13-2024 [facility] BASIC METABOLIC PANELon 10-0 Anion gap [Moles/Vol] 18 mmol/L Normal 10-20 [facility] Comment on above: Order Comment: [facility] has implemented the eGFR calculation approach that does not have a coefficient for race that conforms to the NKF-ASN Task Force Recommendations. Performed By: #### [id number] #### LAB [address] [address] Jesse Triplett M.D. [id number] Calcium [Mass/Vol] 10.0 mg/dL Normal 8.4-10.2 [facility] Comment on above: Order Comment: [facility] has implemented the eGFR calculation approach that does not have a coefficient for race that conforms to the NKF-ASN Task Force Recommendations. Performed By: #### [id number] #### LAB [address] [address] Jesse Triplett M.D. [id number] Chloride [Moles/Vol] 101 mmol/L Normal 98-108 [facility] Comment on above: Order Comment: [facility] has implemented the eGFR calculation approach that does not have a coefficient for race that conforms to the NKF-ASN Task Force Recommendations. Performed By: #### 4 [id number] #### LAB [address] [address] Jesse Triplett M.D. [id number] Creatinine [Mass/Vol] 1.24 mg/dL Normal 0.80-1.30 [facility] Comment on above: Order Comment: [facility] has implemented the eGFR calculation approach that does not have a coefficient for race that conforms to the NKF-ASN Task Force Recommendations. Performed By: #### 4 [id number] #### LAB [address] [address] Jesse Triplett M.D. [id number] EGFR 66 mL/min/1.73 m2 Normal >=60 [facility] Comment on above: Order Comment: [facility] has implemented the eGFR calculation approach that does not have a coefficient for race that conforms to the NKF-ASN Task Force Recommendations. Result Comment: Malia mated GFR was calculated using the 2020 CKD-EPI creatinine equation. Performed By: #### 4 [id number] #### LAB [address] [address] Jesse Triplett M.D. [id number] Glucose [Mass/Vol] 93 mg/dL Normal 65-99 [facility] Comment on above: Order Comment: [facility] has implemented the eGFR calculation approach that does not have a coefficient for race that conforms to the NKF-ASN Task Force Recommendations. Performed By: #### 4 [id number] #### LAB [address] [address] Jesse Triplett M.D. [id number] HCO3 (Bld) [Moles/Vol] 25 mmol/L Normal 21-32 [facility] Comment on above: Order Comment: [facility] has implemented the eGFR calculation approach that does not have a coefficient for race that conforms to the NKF-ASN Task Force Recommendations. Performed By: #### 4 [id number] #### LAB [address] [address] Jesse Triplett M.D. [id number] Potassium [Moles/Vol] 3.6 mmol/L Normal 3.5-5.1 [facility] Comment on above: Order Comment: [facility] has implemented the eGFR calculation approach that does not have a coefficient for race that conforms to the NKF-ASN Task Force Recommendations. Performed By: #### 4 [id number] #### LAB [address] [address] Jesse Triplett M.D. [id number] Sodium [Moles/Vol] 140 mmol/L Normal 135-145 [facility] Comment on above: Order Comment: [facility] has implemented the eGFR calculation approach that does not have a coefficient for race that conforms to the NKF-ASN Task Force Recommendations. Performed By: #### 4 [id number] #### LAB [address] [address] Jesse Triplett M.D. [id number] Urea nitrogen [Mass/Vol] 33 mg/dL High 8-25 [facility] Comment on above: Order Comment: [facility] has implemented the eGFR calculation approach that does not have a coefficient for race that conforms to the NKF-ASN Task Force Recommendations. Performed By: #### 4 6124 #### LAB [address] [place], [place] [address] Jesse Triplett M.D. [id number] Urea nitrogen/Creatinine [Mass ratio] 26.6 mg/mg High 10.0-20.0 [facility] Comment on above: Order Comment: [facility] has implemented the eGFR calculation approach that does not have a coefficient for race that conforms to the NKF-ASN Task Force Recommendations. Performed By: #### 4 [id number] #### LAB [address] [place], [place] [address] Jesse Triplett M.D. [id number] Basic metabolic 2000 panelon 12-11-2024 Anion gap [Moles/Vol] 18 mmol/L 10 - 2 0 mmol/L [facility] Calcium [Mass/Vol] 10 mg/dL 8.4 - 10. 2 mg/dL [facility] Chloride [Moles/Vol] 101 mmol/L 98 - 10 8 mmol/L [facility] Creatinine [Mass/Vol] 1.24 mg/dL 0.80 - 1.30 mg/dL [facility] GFR/1.73 sq M.predicted CKD-EPI (S/P/Bld) [Vol rate/Area] 66 - PINF [facility] Comment on above: Estimated GFR was ca lculated using the 2020 CKD-EPI creatinine equation. Glucose [Mass/Vol] 93 mg/dL 65 - 99 mg/dL [facility] HCO3 [Moles/Vol] 25 mmol/L 21 - 32 mmol/L [facility] Interpretation and review of laboratory results Abnormal [facility] Potassium [Moles/Vol] 3.6 mmol/L 3.5 - 5.1 mmol/L [facility] Sodium [Moles/Vol] 140 mmol/L 135 - 145 mmol/L [facility] Urea nitrogen [Mass/Vol] 33 mg/dL High 8 - 25 mg/dL [facility] Urea nitrogen/Creatinine [Mass ratio] 26.6 mg/mg High 10.0 - 20.0 [facility] has implemented the eGFR calculation approach that does not have a coefficient for race that conforms to the NKF-ASN Task Force Recommendations. [facility] CBC AND DIFFERENTIAL - [facility] on 12-11-2024 AUTO NRBC 0.0 % Normal [facility] Comment on above: Performed By: #### L [id number] #### LAB [address] [address] Jesse Triplett M.D. [id number] AUTO NRBC ABS COUNT 0.00 K/mcL Normal 0.00-0.00 [facility] Comment on above: Performed By: #### L [id number] #### [facility] LAB [address] [address] Jesse Triplett M.D. [id number] BASOPHILS ABSOLUTE COUNT 0.05 K/mcL Normal 0.00-0.30 [facility] Comment on above: Performed By: #### L [id number] #### LAB [address] [address] Jesse Triplett M.D. [id number] Basophils/100 WBC (Bld) 0.7 % Normal [facility] Comment on above: Performed By: #### L [id number] #### LAB [address] [address] Jesse Triplett M.D. [id number] Eosinophils (Bld) [#/Vol] 0.43 10*3/uL Normal 0.00-0.50 [facility] Comment on above: Performed By: #### L [id number] #### LAB [address] [address] Jesse Triplett M.D. [id number] Eosinophils/100 WBC (Bld) 5.9 % Normal [facility] Comment on above: Performed By: #### L [id number] #### LAB [address] [place] [address] Jesse Triplett M.D. [id number] Erythrocyte distribution width (RBC) [Ratio] 13.1 % Normal 11.6-14.8 [facility] Comment on above: Performed By: #### L [id number] #### LAB [address] [address] Jesse Triplett M.D. [id number] Hematocrit (Bld) [Volume fraction] 42.0 % Normal 41.0-53.0 [facility] Comment on above: Performed By: #### L [id number] #### LAB [address] [address] Jesse Triplett M.D. [id number] Hemoglobin (Bld) [Mass/Vol] 13.8 g/dL Normal 13.5-17.5 [facility] Comment on above: Performed By: #### L [id number] #### LAB [address] [address] Jesse Triplett M.D. [id number] IG ABSOLUTE 0.04 K/mcL Normal 0.00-0.30 [facility] Comment on above: Performed By: #### L [id number] #### LAB [address] [place] [address] Jesse Triplett M.D. [id number] IG PERCENT 0.60 % Normal [facility] Comment on above: Result Comment: The IG parameter is the percentage of metamyelocytes, myelocytes and promyelocytes. An immature granulocyte count (IG) of 1% or more suggests the possibility of infection, an IG count of 3% is very likely related to an infection. Performed By: #### L [id number] #### LAB [address] [place] [address] Jesse Triplett M.D. [id number] Lymphocytes (Bld) [#/Vol] 1.21 10*3/uL Normal 0.90-4.00 [facility] Comment on above: Performed By: #### L [id number] #### LAB [address] [place] [address] Jesse Triplett M.D. [id number] Lymphocytes/100 WBC (Bld) 16.7 % Normal [facility] Comment on above: Performed By: #### L [id number] #### LAB [address] [place] [address] Jesse Triplett M.D. [id number] MCH (RBC) [Entitic mass] 33.0 pg Normal 26.0-34.0 [facility] Comment on above: Performed By: #### L [id number] #### LAB [address] [address] Jesse Triplett M.D. [id number] MCV (RBC) [Entitic vol] 100.5 fL High 80.0-100.0 [facility] Comment on above: Performed By: #### L [id number] #### LAB [address] [address] Jesse Triplett M.D. [id number] MEAN CORPUSCULAR HEMOGLOBIN CONC 32.9 g/dL Normal 31.0-37.0 [facility] Comment on above: Performed By: #### L [id number] #### LAB [address] [address] Jesse Triplett M.D. [id number] Monocytes (Bld) [#/Vol] 0.64 10*3/uL Normal 0.30-0.90 [facility] Comment on above: Performed By: #### L [id number] #### LAB [address] [address] Jesse Triplett M.D. [id number] Monocytes/100 WBC (Bld) 8.8 % Normal [facility] Comment on above: Performed By: #### L [id number] #### LAB [address] [address] Jesse Triplett M.D. [id number] NEUTROPHILS ABSOLUTE COUNT 4.89 K/mcL Normal 1.70-7.00 [facility] Comment on above: Performed By: #### L [id number] #### MH LAB [address] [address] Jesse Triplett M.D. [id number] Neutrophils/100 WBC (Bld) 67.3 % Normal [facility] Comment on above: Performed By: #### L [id number] #### MH LAB [address] [address] Jesse Triplett M.D. [id number] Platelet mean volume (Bld) [Entitic vol] 9.7 fL Normal 9.4-12.4 [facility] Comment on above: Performed By: #### L [id number] #### LAB [address] [address] Jesse Triplett M.D. [id number] Platelets (Bld) [#/Vol] 254 10*3/uL Normal 150-400 [facility] Comment on above: Performed By: #### L [id number] #### LAB [address] [address] Jesse Triplett M.D. [id number] RBC (Bld) [#/Vol] 4.18 10*6/uL Low 4.50-5.90 [facility] Comment on above: Performed By: #### L [id number] #### LAB [address] [address] Jesse Triplett M.D. [id number] WBC (Bld) [#/Vol] 7.26 10*3/uL Normal 4.50-11.00 [facility] Comment on above: Performed By: #### L [id number] #### LAB [address] [place] [address] Jesse Triplett M.D. [id number] CBC Auto Differentialon Basophils (Bld) [#/Vol] 0.05 10*3/uL [facility] Basophils/100 WBC (Bld) 0.7 % [facility] Eosinophils (Bld) [#/Vol] 0.43 10*3/uL [facility] Eosinophils/100 WBC (Bld) 5.9 % [facility] Erythrocyte distribution width (RBC) [Entitic vol] 13.1 % 11.6 - 14.8 % [facility] Hematocrit (Bld) [Volume fraction] 42 % 41.0 - 53.0 % [facility] Hemoglobin (Bld) [Mass/Vol] 13.8 g/dL 13.5 - 17.5 g/dL [facility] Immature granulocytes (Bld) [#/Vol] 0.04 10*3/uL [facility] Immature granulocytes/100 WBC (Bld) 0.6 % [facility] Comment on above: The IG parameter is the percentage of metamyelocytes, myelocytes and promyelocytes. An immature granulocyte count (IG) of 1% or more suggests the possibility of infection, an IG count of 3% is very likely related to an infection. Interpretation and review of laboratory results Abnormal [facility] Lymphocytes (Bld) [#/Vol] 1.21 10*3/uL [facility] Lymphocytes/100 WBC (Bld) 16.7 % [facility] MCH (RBC) [Entitic mass] 33 pg 26.0 - 34.[address] [facility] MCHC (RBC) [Mass/Vol] 32.9 g/dL 31.0 - 37.0 g/dL [facility] MCV (RBC) [Entitic vol] 100.5 fL High 80.0 - 100.[address] [facility] Monocytes (Bld) [#/Vol] 0.64 10*3/uL [facility] Monocytes/100 WBC (Bld) 8.8 % [facility] Neutrophils (Bld) [#/Vol] 4.89 10*3/uL [facility] Neutrophils/100 WBC (Bld) 67.3 % [facility] Nucleated RBC (Bld) [#/Vol] 0 10*3/uL [facility] Nucleated RBC/100 WBC (Bld) [Ratio] 0 % [facility] Platelet mean volume (Bld) [Entitic vol] 9.7 fL 9.4 - 12.[address] [facility] Platelets (Bld) [#/Vol] 254 10*3/uL [facility] RBC (Bld) [#/Vol] 4.18 10*6/uL [facility] WBC (Bld) [#/Vol] 7.26 10*3/uL [facility] CT HIP RIGHT WITHOUT CONTRAS Ton 12-11-2024 CT HIP RIGHT WITHOUT CONTRAST EXAMINATION: CT HIP RIGHT WITHOUT CONTRAST HISTORY: ORDERING SYSTEM PROVIDED HISTORY: Primary osteoarthritis of right hip. TECHNOLOGIST PROVIDED HISTORY: Illness/Other. Reason for exam: Hip surgical planning, Primary osteoarthritis of right hip. Encounter Type: Initial. ORDERING SYSTEM PROVIDED DIAGNOSIS CODES: M16.11 Primary osteoarthritis of right hip. COMPARISON: None. TECHNIQUE: Axial CT imaging of the pelvis and knees without contrast. Dereck protocol. Dose reduction techniques were achieved by using automated exposure control and/or adjustment of mA and/or kV according to patient size and/or use of iterative reconstruction technique. FINDINGS: Pelvis: No acute osseous abnormality. Severe right hip joint space narrowing with subchondral sclerosis, subchondral cystic changes and large marginal osteophytes, compatible with severe osteoarthritis. Left hip joint space narrowing with mild osteophytic spurring, compatible with mild osteoarthritis. Anterior bridging osteophytes of the sacroiliac joints. At least moderate lower lumbar spondylosis. Limited evaluation of the abdominal and pelvic viscera reveal no acute findings. Mild sigmoid colonic diverticulosis. Prostate gland appears prominent in size. Pelvic muscle bulk appears normal. Suggestion of prior vasectomy. Knees: No acute osseous abnormality. No subluxation or dislocation. Mild symmetric osteophytic spurring of the medial compartments. No significant joint effusions. Muscle bulk appears normal. IMPRESSION: Severe right hip osteoarthritis. [employer] Workstation ID: [id number] Dictated by: GORDO TESFAYE on [facility] Dec 11, 2024 1:11:53 PM EDT Transcribed by: JAYDEN HALEY on [facility] Dec 11, 2024 1:35:39 PM EDT Finalized by: GORDO TESFAYE on [facility] Dec 11, 2024 8:46:53 PM EDT [facility] Comment on above: Order Comment: Gunjan dickerson only schedule at [facility]. Do not schedule Ct scan appointment with patient. Ordering Doctor's office will call to schedule Ct scan appointment.Injury/Trauma or Illness?:Illness/OtherHow long have you had these symptoms (acute/chronic)?:AcuteReason for exam?:Hip surgical planning, Primary osteoarthritis of right hipType of Exam?:InitialAdditional signs and symptoms?:- MRSA CULTURE/SCREENon 2024 MRSA CULTURE/SCREEN MRSA CULTURE No Methicillin Resistant Staphylococcus (MRSA) Isolated [facility] Comment on above: Performed By: #### [id number] #### [facility] [address] [place] [address] Cullen Rincon M.D. [id number] XR ASPIRATION/INJECTION LARG E JOINT RIGHTon 07-31-2024 XR ASPIRATION/INJECTION LARGE JOINT RIGHT EXAMINATION: XR ASPIRATION/INJECTION LARGE JOINT RIGHT HISTORY: ORDERING SYSTEM PROVIDED HISTORY: Primary osteoarthritis of right hip, TECHNOLOGIST PROVIDED HISTORY: Illness/Other Reason for exam: Primary osteoarthritis of right hip Encounter Type: Initial Additional signs and symptoms: Primary osteoarthritis of right hip Fluoro dose in mGy: 22.09 ORDERING SYSTEM PROVIDED DIAGNOSIS CODES: M16.11 Primary osteoarthritis of right hip COMPARISON: None. TECHNIQUE: RADIATION EXPOSURE: Fluoro dose in elayne Hopper mGy: 22.09. Single view was obtained with total fluoro time 0.55 minute. FINDINGS: Patient agreed to a right hip injection. The right hip was marked, cleaned and draped in sterile fashion. 8 mL 1% lidocaine were used for local anesthesia. 20-gauge needle was placed into the joint under fluoroscopy. 5 mL of contrast were injected documenting intraarticular location, and a total of Kenalog 80 mg and bupivacaine 4 mL were injected. The needle was removed. There were no immediate complications. Patient left the department in satisfactory and stable condition. There were severe degenerative changes of the right hip. IMPRESSION: Severe degenerative changes right hip. Satisfactory right hip injection. MA/trw Workstation ID: [id number] Dictated by: FRANCIA OROPEZA on SunJuly 31, 2024 3:48:45 PM EDT Transcribed by: OTF SCHMITZ on SunJuly 31, 2024 3:52:39 PM EDT Finalized by: FRANCIA OROPEZA on SunJuly 31, 2024 4:55:02 PM EDT [facility] Comment on above: Order Comment: Injur y/Trauma or Illness?:Illness/OtherHow long have you had these symptoms (acute/chronic)?:AcuteReason for exam?:Primary osteoarthritis of right hipType of Exam?:InitialAdditional signs and symptoms?:Primary osteoarthritis of right hipFluoro time in minutes:0.5533 secondsFluoro dose in mGy?:22.09 XR LUMBAR SPINE STANDARD WIT H FLEX/EXT 4+ VIEWSon 06-17-2024 XR LUMBAR SPINE STANDARD WITH FLEX/EXT 4+ VIEWS EXAMINATION: XR LUMBAR SPINE STANDARD WITH FLEX/EXT 4+ VIEWS 06/17/2024 1:57 pm HISTORY: ORDERING SYSTEM PROVIDED HISTORY: Pain, TECHNOLOGIST PROVIDED HISTORY: Illness/Other Reason for exam: Right anterior and posterior hip pain x 1 year but has increased over the last 3 months. No injury Cancer History: u Surgery, RadiationHistory: u Encounter Type: Initial Additional signs and symptoms: None ORDERING SYSTEM PROVIDED DIAGNOSIS CODES: R52 Pain COMPARISON: None. FINDINGS: Five views of the lumbar spine were obtained including flexion/extension lateral views. Five lumbar-type vertebrae are present. There is lumbosacral disc space narrowing. Multilevel endplate degenerative changes noted primarily in the lower lumbar spine. Vertebral body heights are maintained. No acute fracture or subluxation. Facet hypertrophy is noted primarily lumbosacral junction L4-L5. Visualized portions of the bony pelvis are unremarkable. Abdominal soft tissues are within normal limits. IMPRESSION: Moderate lower lumbar spondylopathy. SLM/ Workstation ID: [id number] Dictated by: SAMIRA SALAS on [place] Jun 19, 2024 3:51:43 PM EDT Transcribed by: NOVA LOONEY on [facility] Jun 19, 2024 3:59:13 PM EDT Finalized by: SAMIRA SALAS on [facility] Jun 19, 2024 3:59:13 PM EDT [facility] Comment on above: Order Comment: Injur y/Trauma or Illness?:Illness/Other How long have you had these symptoms (acute/chronic)?:Chronic Reason for exam?:Right anterior and posterior hip pain x 1 year but has increased over the last 3 months. No injury History of cancer?:u Surgeries, chemotherapy, or radiation?:u Type of Exam?:Initial Additional signs and symptoms?:None Neurology Visit Reporton Neurology Visit Report [facility] [address] [facility], [address] [place] [address] OFFICE VISIT Date of Service: 05/27/24 MR#: [id number] Acct: [id number] Name: BISI FORD Rep #: [id number] : 1965 Provider: Dr. Franky bagley MD Age/Sex: 59/M Location: [facility]. Status: Signed [facility] Chief Complaint: Neurology 6 MO FU Details: Interim History: Bisi returns for follow-up visit. He has a history of hypertension. He had a COVID-19 infection in March 2021 and at that time began to experience a tremor affecting both hands. The tremor was worse with action and interfered with activities such as writing and using eating utensils. In December 2021, he had another COVID-19 infection and had prominent associated fatigue and during this time had worsening of his tremor. In the latter part of 2021, atenolol was initiated for his hypertension and tremor. Subsequently, his tremor diminished moderately. Per prior assessment, he denied having numbness, focal weakness or gait difficulty. He denied having any tremor prior to March 2021. Although improved his tremor continued to cause occasional interference with writing and using eating utensils. Following a switch of atenolol to propranolol ER in 2022 and subsequent dose increase to 120 mg daily, he has had a reduction of his tremor and no longer has functional impairment due to his tremor. He takes losartan/hydrochloroth iazide. His blood pressure is well-controlled. Per prior assessment, he reported that since March 2021, he has been experiencing mild headaches that have occurred about 1 to 2 days/week. These headaches are retro-orbital headaches. He does not have associated nausea, photophobia or phonophobia. He does not feel the need to take any medication for these headaches. At times, he experiences some blurring of vision with the headaches and this may be triggered by looking at his computer at work for extended periods of time. He denied having headaches prior to March 2021. He has a history of depression and anxiety; he takes duloxetine and this has been of benefit. He had bilateral carpal tunnel surgery in years past. He has had fatigue. A B12 injection was of benefit for his fatigue. He continues to have some fatigue. He had taken a B12 supplement however this was recently discontinued due to a high serum B12 level. Physical Exam: Neuro: The patient is awake and alert and responds appropriately; no tremor is noted when arms are extended; no rigidity is noted in the wrists Heart: regular rate and rhythm Supplemental Info BMP, lipid profile (02/24/2022): Cholesterol 216 (high), BUN 19 (high), creatinine 21.2 (high) CBC, B12, TSH (04/25/22): MCV 98.9 (high), B12 327 (near low end of normal range) BMP, lipid profile, B12 (05/14/2023): Triglycerides 161 (normal), cholesterol 229 (high), LDL 143 (high), VLDL 32 (normal), HDL 54 (normal) BUN 39 (high), creatinine 1.36 (high), EGFR 57 (low), glucose 111 (high) BMP, lipid profile, B12 (05/20/2024): Triglycerides 137 (normal), cholesterol 115 (normal), LDL 33 (normal), HDL 55 (normal), B12 1142 (high), BUN/creatinine ratio 22.9 (high), creatinine 1.22 (high), BUN 28 (high), bicarb 19.4 (low) Assessment and Plan Assessment and Plan (1) Essential tremor: Status: Chronic (2) Hypertension: Status: Chronic Medications: Refilled propranolol ER 120 mg PO QAM 90 caps 3RF Plan Details Additional Comments: The patient has an essential tremor affecting both hands. His tremor had initially caused some functional impairment with activities such as using eating utensils and writing. His tremor began in March 2021 with the occurrence of a COVID-19 infection and worsened later in 2021 following a second COVID-19 infection in December 2021. Propranolol ER has been of benefit for his tremor and hypertension. He no longer has functional impairment due to his tremor and no tremor is noted today. - Propranolol ER 120 mg daily will be continued for his tremor and hypertension. He takes losartan/hydrochloroth iazide for his hypertension. His blood pressure is stable today. He had fatigue since his COVID-19 infections; this improved. His B12 level was previously near the low end of the normal range. A B12 injection was of benefit for his fatigue. He continues to experience some fatigue. He has been taking an oral B12 supplement however this was recently discontinued due to a high B12 level. He has depression and anxiety. - He takes duloxetine. Per prior assessment, he reported that since March 2021, he has been experiencing mild headaches that have occurred about 1 to 2 days/week. These headaches are retro-orbital headaches. He does not have associated nausea, photophobia or phonophobia. He does not feel the need to take any medication for these headaches. At times, he has experienced some blurring of vision with the (more content not included)... Normal [facility] Anion gap in Serum or Plasma Ordered By: Serenity Marcos on 05-20-2024 Anion gap [Moles/Vol] 17 mmol/L High 5-15 [facility] BUN/creatinine ratioOrdered By: Serenity Marcos on 05-20-2024 Urea nitrogen/Creatinine [Mass ratio] 22.9 mg/mg High 10-20 [facility] Basic Metabolic Profile (BMP )on 05-20-2024 BUN/CRE 22.9 RATIO High 10-20 [facility] Comment on above: Order Comment: Order Date: 05/14/23 Order Info: [id number] - BMP Order Info: - LIPID Order Info: [id number] - PSA Performed By: #### L 500.2500, L503.0105, L501.9910, L500.4100 #### [facility] [address] [place], [address] Calcium [Mass/Vol] 9.8 mg/dL Normal 7.6-11.0 [facility] Comment on above: Order Comment: Order Date: 05/14/23 Order Info: 666-03 - BMP Order Info: - LIPID Order Info: 2856-03 - PSA Performed By: #### L 500.2500, L503.0105, L501.9910, L500.4100 #### [facility] [address] [place], [address] Chloride [Moles/Vol] 100 mmol/L Normal 98-108 [facility] Comment on above: Order Comment: Order Date: 05/14/23 Order Info: 666-03 - BMP Order Info: [id number] - LIPID Order Info: [id number] - PSA Performed By: #### L 500.2500, L503.0105, L501.9910, L500.4100 #### [facility] [address] [place], [address] CO2 [Moles/Vol] 19.4 mmol/L Low 21.0-32.0 [facility] Comment on above: Order Comment: Order Date: 05/14/23 Order Info: 666-03 - BMP Order Info: [id number] - LIPID Order Info: [id number] - PSA Performed By: #### L 500.2500, L503.0105, L501.9910, L500.4100 #### [facility] [address] [place], [address] Creatinine [Mass/Vol] 1.22 mg/dL High 0.70-1.20 [facility] Comment on above: Order Comment: Order Date: 05/14/23 Order Info: 666-03 - BMP Order Info: [id number] - LIPID Order Info: 1 - PSA Performed By: #### L 500.2500, L503.0105, L501.9910, L500.4100 #### [facility] [address] [place], [address] GAP 17 High 5-15 [facility] Comment on above: Order Comment: Order Date: 05/14/23 Order Info: 666-03 - BMP Order Info: - LIPID Order Info: [id number] - PSA Performed By: #### L 500.2500, L503.0105, L501.9910, L500.4100 #### [facility] [address] [place], [address] GFR/1.73 sq M.predicted among non-blacks MDRD (S/P/Bld) [Vol rate/Area] 67 mL/min/{1.73_m2} Normal >60 [facility] Comment on above: Order Comment: Order Date: 05/14/23 Order Info: 666-03 - BMP Order Info: - LIPID Order Info: [id number] - PSA Result Comment: mL/m in/1.73m2 CKD-EPI Creatinine Equation (2020) Performed By: #### L 500.2500, L503.0105, L501.9910, L500.4100 #### [facility] [address] [place], [address] Glucose [Mass/Vol] 90 mg/dL Normal 70-99 [facility] Comment on above: Order Comment: Order Date: 05/14/23 Order Info: 666-03 - BMP Order Info: - LIPID Order Info: 2856-03 - PSA Performed By: #### L 500.2500, L503.0105, L501.9910, L500.4100 #### [facility] [address] [place], [address] Potassium [Moles/Vol] 4.0 mmol/L Normal 3.3-5.1 [facility] Comment on above: Order Comment: Order Date: 05/14/23 Order Info: 0667-1 - BMP Order Info: [id number] - LIPID Order Info: [id number] - PSA Performed By: #### L 500.2500, L503.0105, L501.9910, L500.4100 #### [facility] [address] [place], [place], [address] Sodium [Moles/Vol] 137 mmol/L Normal 133-145 [facility] Comment on above: Order Comment: Order Date: 05/14/23 Order Info: 06 - BMP Order Info: - LIPID Order Info: [id number] - PSA Performed By: #### L 500.2500, L503.0105, L501.9910, L500.4100 #### [facility] [address] [place], [address] Urea nitrogen [Mass/Vol] 28 mg/dL High 4-19 [facility] Comment on above: Order Comment: Order Date: 05/14/23 Order Info: 0667-1 - BMP Order Info: [id number] - LIPID Order Info: [id number] - PSA Performed By: #### L 500.2500, L503.0105, L501.9910, L500.4100 #### [facility] [address] [place], [address] Calculated very low density lipoprotein (VLDL) cholesterol measurementOrdered By: Serenity Marcos on 05-20-2024 VLDL Cholesterol 27 mg/dL 5-40 [facility] Carbon dioxide, total [Moles /volume] in Central venous bloodOrdered By: Serenity Marcos on 05-20-2024 CO2 [Moles/Vol] 19.4 mmol/L Low 21.0-32.0 [facility] Chloride assayOrdered By: Kenna Marcos on 05-20-2024 Chloride [Moles/Vol] 100 mmol/L 98-108 [facility] Creatinine Unsp time (U) [Ma ss/Vol]Ordered By: Serenity Marcos on 05-20-2024 Creatinine (U) [Mass/Vol] 214.00 mg/dL 39-259 [facility] GFR/1.73 sq M.predicted marci g non-blacks MDRD (S/P/Bld) [Vol rate/Area]Ordered By: Serenity Marcos on 05-20-2024 Estimated GFR (MDRD) Non-Af Amer 67 >60 [facility] Comment on above: mL/min/1.73m2 CKD-EP I Creatinine Equation (2020) HIP, UNI W/ Pelvis 2-3 Views on 05-20-2024 HIP, UNI W/ Pelvis 2-3 Views [facility] [address] [place] [address] HIP, UNI W/ Pelvis 2-3 Views MR#: [id number] Acct: [id number] Name: BISI FORD Rep #: [id number] : 1965 M 59 From: Francia Schmidt MD PCP: Dr. Serenity Marcos MD Status: REG CLI Study: HIP, UNI W/ Pelvis 2-3 Views Date of Exam: 02/03 Exam# [id number] Ordering Dr: Serenity Marcos MD EXAM: XR Right Hip With Pelvis When Performed, 2 or 3 Views CLINICAL INDICATION: PAIN TECHNIQUE: Two or three views of the right hip with pelvis when performed. COMPARISON: No relevant prior studies available. FINDINGS: BONES/JOINTS: Moderate degenerative changes of the hip joint. No acute fracture. No dislocation. SOFT TISSUES: Unremarkable. RAD/HIP, UNI W/ Pelvis 2-3 Views IMPRESSION: Degenerative changes as above. Reading Location: [facility] CC: Dr. Serenity Marcos MD Casting Repairer: Signed Normal [facility] LDL calc ser/plasOrdered By: Serenity Marcos on 05-20-2024 LDL Cholesterol, Calculated 33 mg/dL [facility] Comment on above: Dpolbxwfww=484-822 m g/dL & Higher Tdwc=770 mg/dL or greater Lipid Profileon 05-20-2024 CHOL:HDL 2.09 Normal [facility] Comment on above: Order Comment: Order Date: 05/14/23 Order Info: 06-1 - BMP Order Info: [id number] - LIPID Order Info: 2856-03 - PSA Performed By: #### L 500.2500, L503.0105, L501.9910, L500.4100 #### [facility] [address] [place], [address] Cholesterol [Mass/Vol] 115 mg/dL Normal <=200 [facility] Comment on above: Order Comment: Order Date: 05/14/23 Order Info: 666-03 - BMP Order Info: - LIPID Order Info: 2856-03 - PSA Result Comment: Chol esterol level, Desirable <200 mg/dL Borderline high cholesterol 200-239 mg/dL High cholesterol >=240 mg/dL Recommendations of the NCEP Adult Treatment Panel for the following risk-cutoff thresholds for the [place] population. Performed By: #### L 500.2500, L503.0105, L501.9910, L500.4100 #### [facility] [address] [place], [place], [id number] [phone] Cholesterol in HDL [Mass/Vol] 55 mg/dL Normal [facility] Comment on above: Order Comment: Order Date: 05/14/23 Order Info: 666-03 - BMP Order Info: [id number] - LIPID Order Info: 2856-03 - PSA Result Comment: Graciela onal Cholesterol Education Program (NCEP) guidelines: <40 mg/dL: Low HDL-cholesterol (major risk factor for CHD) >= 60 mg/dL: High HDL-cholesterol (negative risk factor for CHD) HDL-cholesterol is affected by a number of factors, e.g. smoking, exercise, hormones, sex and age. Performed By: #### L 500.2500, L503.0105, L501.9910, L500.4100 #### [facility] [address] [place], [address] Cholesterol in LDL [Mass/Vol] 33 mg/dL Normal [facility] Comment on above: Order Comment: Order Date: 05/14/23 Order Info: 0667-1 - BMP Order Info: [id number] - LIPID Order Info: [id number] - PSA Result Comment: Bord wymics=482-070 mg/dL Higher Klpn=415 mg/dL or greater Performed By: #### L 500.2500, L503.0105, L501.9910, L500.4100 #### [facility] [address] [place], [address] Cholesterol in VLDL [Mass/Vol] 27 mg/dL Normal 5-40 [facility] Comment on above: Order Comment: Order Date: 05/14/23 Order Info: 06- - BMP Order Info: [id number] - LIPID Order Info: 2856-03 - PSA Performed By: #### L 500.2500, L503.0105, L501.9910, L500.4100 #### [facility] [address] [place], [address] Triglyceride [Mass/Vol] 137 mg/dL Normal [facility] Comment on above: Order Comment: Order Date: 05/14/23 Order Info: 0667-1 - BMP Order Info: [id number] - LIPID Order Info: [id number] - PSA Result Comment: The drugs N-Acetylcysteine and Metamizole may falsely depress this assay. Normal range: <150 mg/dL Borderline High: 150-199 mg/dL High: 200-499 mg/dL Very High: >500 mg/dL Performed By: #### L 500.2500, L503.0105, L501.9910, L500.4100 #### [facility] [address] [place], [address] PSA, total screeningOrdered By: Serenity Marcos on 05-20-2024 Prostate Specific Antigen Screen 3.51 ng/mL 0.02-4.00 [facility] Comment on above: This test was perfor med using the [employer] tPSA method. Measured values of a patient sample can vary depending on the testing procedure used. PSA values determined on patient samples by different testing procedures cannot be used interchangeably. If there is a change in PSA assays while monitoring therapy, sequential testing should be performed to confirm baseline values. PSA,Total - Annual Screenon 05-20-2024 PSA,TOT SCREEN 3.51 ng/mL Normal 0.02-4.00 [facility] Comment on above: Order Comment: Order Date: 05/14/23 Order Info: 0667-1 - BMP Order Info: [id number] - LIPID Order Info: [id number] - PSA Result Comment: This test was performed using the [employer] tPSA method. Measured values of a patient??sample can vary depending on the testing procedure used. PSA values determined on patient samples by different testing procedures cannot be used interchangeably. If there is a change in PSA assays while monitoring therapy, sequential testing should be performed to confirm baseline values. Performed By: #### L 500.2500, L503.0105, L501.9910, L500.4100 #### [facility] [address] [place], [address] Potassium (Unsp spec) [Mass/ Vol]Ordered By: Serenity Marcos on 05-20-2024 Potassium [Moles/Vol] 4.0 mmol/L 3.3-5.1 [facility] Protein+Creatinine Ratio,Uri neon 05-20-2024 PROT:CRE RATIO 141 mg/g CRE Normal 0-200 [facility] Comment on above: Performed By: #### L 501.0900 #### [facility] [address] [place], [address] Protein (U) [Mass/Vol] 30.1 mg/dL High 0.0-12.0 [facility] Comment on above: Performed By: #### L 501.0900 #### [facility] [address] [place], [address] UR CREAT 214.00 mg/dL Normal 39-259 [facility] Comment on above: Performed By: #### L 501.0900 #### [facility] [place], [address] Protein/Creatinine (U) [Mass ratio]Ordered By: Serenity Marcos on 05-20-2024 Urine Protein/Creatinine Ratio 141 mg/g CRE 0-200 [facility] Screening total cholesterol/ high density lipoprotein (HDL) cholesterol ratioOrdered By: Serenity Marcos on 05-20-2024 Cholesterol.total/Chol esterol in HDL [Mass ratio] 2.09 {ratio} [facility] Serum creatinine measurement (mass/volume)Ordered By: Serenity Marcos on 05-20-2024 Creatinine [Mass/Vol] 1.22 mg/dL High 0.70-1.20 [facility] Serum glucose measurement (m ass/volume)Ordered By: Serenity Marcos on 05-20-2024 Glucose [Mass/Vol] 90 mg/dL 70-99 [facility] Serum or plasma calcium rc urement (mass/volume)Ordered By: Serenity Marcos on 05-20-2024 Calcium [Mass/Vol] 9.8 mg/dL 7.6-11.0 [facility] Serum or plasma cholesterol in HDL measurement (mass/volume)Ordered By: Serenity Marcos on 05-20-2024 Cholesterol in HDL [Mass/Vol] 55 mg/dL >40 [facility] Comment on above: National Cholesterol Education Program (NCEP) guidelines:<40 mg/dL: Low HDL-cholesterol (major risk factor for CHD)>= 60 mg/dL: High HDL-cholesterol (negative risk factor for CHD)HDL-cholesterol is affected by a number of factors, e.g. smoking, exercise, hormones, sex and age. Serum or plasma cholesterol measurement (mass/volume)Ordered By: Serenity Marcos on 05-20-2024 Cholesterol [Mass/Vol] 115 mg/dL <201 [facility] Comment on above: Cholesterol level, D esirable <200 mg/dLBorderline high cholesterol 200-239 mg/dLHigh cholesterol >=240 mg/dLRecommendations of the NCEP Adult Treatment Panel for the following risk-cutoff thresholds for the [place] population. Serum or plasma urea nitroge n measurement (mass/volume)Ordered By: Serenity Marcos on 05-20-2024 Urea nitrogen [Mass/Vol] 28 mg/dL High 4-19 [facility] Sodium levelOrdered By: Serenity Marcos on 05-20-2024 Sodium [Moles/Vol] 137 mmol/L 133-145 [facility] Triglycerides measurementOrd ered By: Serenity Marcos on 05-20-2024 Triglyceride [Mass/Vol] 137 mg/dL <199 [facility] Comment on above: The drugs N-Acetylcy steine and Metamizole may falsely depress this assay. Normal range: <150 mg/dLBorderline High: 150-199 mg/dLHigh: 200-499 mg/dLVery High: >500 mg/dL Urine protein measurement (m ass/volume)Ordered By: Serenity Marcos on 05-20-2024 Protein (U) [Mass/Vol] 30.1 mg/dL High 0.0-12.0 [facility] Vitamin B12on 05-20-2024 Cobalamin (Vitamin B12) [Mass/Vol] 1142 pg/mL High 211-911 [facility] Comment on above: Order Comment: Order Date: 05/14/23 Order Info: [id number] - B12 Performed By: #### L 500.2500, L503.0105, L501.9910, L500.4100 #### [facility] [place], [address] Vitamin B12 measurementOrder ed By: Serenity Marcos on 05-20-2024 Cobalamin (Vitamin B12) [Mass/Vol] 1142 pg/mL High 211-911 [facility] Basophil percentageOrdered B y: Serenity Marcos on 05-14-2023 Chloride [Moles/Vol] 104 mmol/L 98-107 [facility] Cholesterol [Mass/Vol] 229 mg/dL <200 [facility] Comment on above: <200 mg/dL Desirable 200-240 mg/dL Borderline >240 mg/dL High Risk Glucose [Mass/Vol] 111 mg/dL 74-106 [facility] Comment on above: Fasting Glucose resu lt from 100 to 125 mg/dL suggests IMPAIRED HOMEOSTASIS per A.D.A. criteria. Potassium [Moles/Vol] 3.7 mmol/L 3.5-5.1 [facility] Sodium [Moles/Vol] 139 mmol/L 136-145 [facility] Triglyceride [Mass/Vol] 161 mg/dL <199 [facility] Comment on above: The drugs N-Acetylcy steine and Metamizole may falsely depress this assay.Serum Triglycerides Reference Interval Normal <150 mg/dL Borderline high 150 - 199 mg/dL High 200 - 499 mg/dL Very High > or = 500 mg/dL Laboratory - Chemistry and C hemistry - challengeOrdered By: Serenity Marcos on 05-14-2023 Cholesterol in HDL [Mass/Vol] 54 mg/dL >40 [facility] Comment on above: The drugs N-Acetylcy steine and Metamizole may falsely depress this assay. Reference Range HDL <40 mg/dL Low HDL Cholesterol HDL >or= 60 mg/dL High HDL Cholesterol Cholesterol in LDL [Mass/Vol] 143 mg/dL 0-130 [facility] CO2 [Moles/Vol] 29.0 mmol/L 21.0-32.0 [facility] Cobalamin (Vitamin B12) [Mass/Vol] 640 pg/mL 211-911 [facility] Urea nitrogen/Creatinine [Mass ratio] 28.7 mg/mg 10-20 [facility] No Panel InformationOrdered By: Serenity Marcos on 05-14-2023 Estimated GFR (MDRD) Amer 69 mL/min >60 [facility] Comment on above: GFR Calc Estimated GFR (MDRD) Non-Af Amer 57 mL/min >60 [facility] Comment on above: Non- GFR Calc Prostate Specific Antigen Screen 4.53 ng/mL 0.00-4.00 [facility] Comment on above: This test was perfor med using the TPSA assay method for the[employer] chemistry system. Values obtained with differentassay methods cannot be used interchangably.When changing PSA assays in the course of monitoring apatient, additional sequential testing should be carriedout to confirm baseline values. VLDL Cholesterol 32 mg/dL 5-40 [facility] Serum or plasma calcium rc urement (mass/volume)Ordered By: Serenity Marcos on 05-14-2023 Calcium [Mass/Vol] 9.6 mg/dL 8.5-10.1 [facility] Serum or plasma creatinine m easurement (mass/volume)Ordered By: Serenity Marcos on 05-14-2023 Creatinine [Mass/Vol] 1.36 mg/dL 0.70-1.30 [facility] Comment on above: The validity of the calculated GFR & GFRAA in patients over 70 years has not been determined. Clinical correlation is essential. Serum or plasma urea nitroge n measurement (mass/volume)Ordered By: Serenity Marcos on 05-14-2023 Urea nitrogen [Mass/Vol] 39 mg/dL 7-18 [facility] Thin prep Papanicolaou smear with manual screeningOrdered By: Serenity Marcos on 05-14-2023 Protein (U) [Mass/Vol] 30.6 mg/dL 0.0-11.8 [facility] Thin prep Papanicolaou smear with manual screening 6 5-15 [facility] Urine creatinine measurement (mass/volume)Ordered By: Serenity Marcos on 05-14-2023 Creatinine (U) [Mass/Vol] 201.00 mg/dL NO RANGE EST. [facility] Urine protein/creatinine mas s ratioOrdered By: Serenity Marcos on 05-14-2023 Protein/Creatinine (U) [Mass ratio] 152 mg/g CRE 0-200 [facility] TROPONIN I, HIGH SENSITIVITY on 09-22-2022 TROPONIN I, HIGH SENSITIVITY 13 ng/L Normal 0 - 20 [facility] Comment on above: Result Comment: . Less than 99th percentile of normal range cutoff- Female and children under 18 years old <14 ng/L; Male <21 ng/L: Negative Repeat testing should be performed if clinically indicated. . Female and children under 18 years old 14-50 ng/L; Male 21-50 ng/L: Consistent with possible cardiac damage and possible increased clinical risk. Serial measurements may help to assess extent of myocardial damage. . >50 ng/L: Consistent with cardiac damage, increased clinical risk and myocardial infarction. Serial measurements may help assess extent of myocardial damage. . NOTE: Children less than 1 year old may have higher baseline troponin levels and results should be interpreted in conjunction with the overall clinical context. . NOTE: Troponin I testing is performed using a different testing methodology at [facility] than at other [facility]. Direct result comparisons should only be made within the same method. Performed By: #### T [facility] #### [address] [address] BASIC METABOLIC PANELon 09-09 Anion gap [Moles/Vol] 17 mmol/L Normal 10 - 20 [facility] Comment on above: Performed By: #### B MP #### [address] [address] Calcium [Mass/Vol] 8.9 mg/dL Normal 8.6 - 10.3 [facility] Comment on above: Performed By: #### B MP #### [address] [address] Chloride [Moles/Vol] 103 mmol/L Normal 98 - 107 [facility] Comment on above: Performed By: #### B MP #### [address] [address] Creatinine [Mass/Vol] 0.75 mg/dL Normal 0.50 - 1.30 [facility] Comment on above: Performed By: #### B MP #### [address] [address] eGFR MALE >90 Normal >90 [facility] Comment on above: Result Comment: CALC ULATIONS OF ESTIMATED GFR ARE PERFORMED USING THE 2020 CKD-EPI STUDY REFIT EQUATION WITHOUT THE RACE VARIABLE FOR THE IDMS-TRACEABLE CREATININE METHODS. https://jasn.asnjournals.org/content//ASN.67810 24813 Performed By: #### B MP #### [address] [address] Glucose [Mass/Vol] 91 mg/dL Normal 74 - 99 [facility] Comment on above: Performed By: #### B MP #### [address] [address] HCO3 (Bld) [Moles/Vol] 25 mmol/L Normal 21 - 32 [facility] Comment on above: Performed By: #### B MP #### [address] [address] Potassium [Moles/Vol] 3.5 mmol/L Normal 3.5 - 5.3 [facility] Comment on above: Performed By: #### B MP #### [address] [address] Sodium [Moles/Vol] 141 mmol/L Normal 136 - 145 [facility] Comment on above: Performed By: #### B MP #### [address] [address] Urea nitrogen [Mass/Vol] 12 mg/dL Normal 6 - 23 [facility] Comment on above: Performed By: #### B MP #### [address] [address] CBC AND DIFFERENTIALon 09-21 % AUTOMATED IMMATURE GRAN 0.5 % Normal 0.0 - 0.9 [facility] Comment on above: Result Comment: Sun ture Granulocyte Count (IG) includes promyelocytes, myelocytes and metamyelocytes but does not include bands. Percent differential counts (%) should be interpreted in the context of the absolute cell counts (cells/L). Performed By: #### C [facility] #### [address] [address] Basophils (Bld) [#/Vol] 0.04 10*3/uL Normal 0.00 - 0.10 [facility] Comment on above: Performed By: #### C [facility]CD[facility] #### [address] [address] Basophils/100 WBC (Bld) 0.7 % Normal 0.0 - 2.0 [facility] Comment on above: Performed By: #### C BCD[facility] #### [address] [address] Eosinophils (Bld) [#/Vol] 0.26 10*3/uL Normal 0.00 - 0.70 [facility] Comment on above: Performed By: #### C [facility]CD[facility] #### [address] [address] Eosinophils/100 WBC (Bld) 4.4 % Normal 0.0 - 6.0 [facility] Comment on above: Performed By: #### C [facility]CD[facility] #### [address] [address] Erythrocyte distribution width (RBC) [Ratio] 13.2 % Normal 11.5 - 14.5 [facility] Comment on above: Performed By: #### C BCD[facility] #### [address] [address] Hematocrit (Bld) [Volume fraction] 44.6 % Normal 41.0 - 52.0 [facility] Comment on above: Performed By: #### C BCD[facility] #### [address] [address] Hemoglobin (Bld) [Mass/Vol] 15.3 g/dL Normal 13.5 - 17.5 [facility] Comment on above: Performed By: #### C BCDF #### [address] [address] Lymphocytes (Bld) [#/Vol] 1.01 10*3/uL Low 1.20 - 4.80 [facility] Comment on above: Performed By: #### C BCDF #### [address] [address] Lymphocytes/100 WBC (Bld) 17.1 % Normal 13.0 - 44.0 [facility] Comment on above: Performed By: #### C BCDF #### [address] [address] MCHC (RBC) [Mass/Vol] 34.3 g/dL Normal 32.0 - 36.0 [facility] Comment on above: Performed By: #### C BCDF #### [address] [address] MCV (RBC) [Entitic vol] 98 fL Normal 80 - 100 [facility] Comment on above: Performed By: #### C BCDF #### [address] [address] Monocytes (Bld) [#/Vol] 0.48 10*3/uL Normal 0.10 - 1.00 [facility] Comment on above: Performed By: #### C BCDF #### [address] [address] Monocytes/100 WBC (Bld) 8.1 % Normal 2.0 - 10.0 [facility] Comment on above: Performed By: #### C BCDF #### [address] [address] Neutrophils (Bld) [#/Vol] 4.09 10*3/uL Normal 1.20 - 7.70 [facility] Comment on above: Result Comment: Perc ent differential counts (%) should be interpreted in the context of the absolute cell counts (cells/L). Performed By: #### C [facility]CD[facility] #### [address] [address] Neutrophils/100 WBC (Bld) 69.2 % Normal 40.0 - 80.0 [facility] Comment on above: Performed By: #### C BCD[facility] #### [address] [address] Platelets (Bld) [#/Vol] 221 10*3/uL Normal 150 - 450 [facility] Comment on above: Performed By: #### C BCDF #### [address] [address] RBC 4.56 x10E12/L Normal 4.50 - 5.90 [facility] Comment on above: Performed By: #### C BCDF #### [address] [address] WBC (Bld) [#/Vol] 5.9 10*3/uL Normal 4.4 - 11.3 [facility] Comment on above: Performed By: #### C BCD[facility] #### [address] [address] CHEST 1 VIEWon 09-21-2022 CHEST 1 VIEW STUDY: Chest Radiograph; 09/21/2022 8:08PM INDICATION: Chest pain for about two and a half hours. COMPARISON: None available ACCESSION NUMBER(S): [id number] ORDERING CLINICIAN: PEREZ PICKENS MD TECHNIQUE: Frontal chest was obtained at 20:03 hours. FINDINGS: CARDIOMEDIASTINAL SILHOUETTE: Cardiomediastinal silhouette is normal in size and configuration. LUNGS: Lungs are clear. There is no pleural effusion and no evidence of pneumothorax. ABDOMEN: No remarkable upper abdominal findings. BONES: No acute osseous changes. IMPRESSION: No acute cardiopulmonary disease. Signed by Artemio Wilson MD Electronically signed by: ARTEMIO WILSON MD [facility] Provider Note - ED v3on 07- Provider Note - ED v3 Provider Note: Results/Vital Signs: Pediatric Clinical Scoring (JAMAR) is no recent JAMAR charted on this account Chart Review: ED NOTES ED NOTES: HPI: Patient is a 57-year-old male chief complaint of chest throbbing which she also describes as an ache on the left side approximately 3 hours ago. No radiating symptoms to the extremities neck or jaw. No shortness of breath. He states he did not take his morning antihypertensive medications. Is a non-smoker. ROS: All systems are negative other than as noted in HPI. Physical Exam Constitutional: Well developed, No acute distress EYES: Sclera non-icteric. Conjunctiva not injected. No discharge. HENT: Moist mucous membranes. Posterior oropharynx non-erythematous, no tonsillar exudates. TMs clear bilaterally, canals normal. No cervical LAD. Neck supple without meningismus. CV: Regular rate and rhythm, Resp: No respiratory distress. Lungs clear bilaterally. GI: Normoactive bowel sounds. Soft, non tender, no masses or organomegaly appreciated. :. MSK: No gross deformities appreciated. Moves all extremities Neuro: Alert, age appropriate. Normal muscle tone. Moving all extremities. Skin: No rashes. HISTORY OF PRESENTING ILLNESS BISI is a 57 year old Male and was seen by me at 21-Sep-2022 19:46 for a chief complaint of chest pain (Patient complains of throbbing chest pain that started 2 1/2 hours ago, denies shortness of breath, denies N+V.)(1). Triage Information: Most recent Vital Sign Value Date Temp (F): 98 09-21-2022 19:24 Temp (C): 36.6 09-21-2022 19:24 Heart Rate (beats/min): 104 09-21-2022 19:24 Respirations (breaths/min): 17 09-21-2022 19:24 SpO2 (%): 96 09-21-2022 19:24 BP Systolic (mm Hg): 91 09-21-2022 19:24 BP Diastolic (mm Hg): 63 09-21-2022 19:24 PAST MEDICAL HISTORY ALLERGIES/INTOLERANCES : No Known Allergies HEALTH HISTORY: No documented data. OUTPATIENT MEDICATIONS: Home Medications Review Status for Reconciliation: Complete Med Status: Patient Currently Takes Medications Drug Name: doxazosin 4 mg oral tablet Instructions: 1 tab(s) orally once a day Drug Name: omeprazole 40 mg oral delayed release capsule Instructions: 1 cap(s) orally once a day Drug Name: cetirizine 10 mg oral capsule Instructions: 1 cap(s) orally once a day Drug Name: propranolol 60 mg oral tablet Instructions: orally once a day Drug Name: DULoxetine 60 mg oral delayed release capsule Instructions: 1 cap(s) orally once a day Drug Name: Hyzaar 50 mg-12.5 mg oral tablet Instructions: 1 tab(s) orally once a day SIGNIFICANT EVENTS: Past Medical History Description:HTN CRITICAL CARE RESULTS: Recent Lab Results: I have reviewed these laboratory results: Troponin I, High Sensitivity Trending View [id number] 21:54:00 21-Sep-2022 20:00:00 Troponin I, High [id number] Complete Blood Count + Differential 21-Sep-2022 20:00:00 ResultValue White Blood Cell Count 5.9 Red Blood Cell Count 4.56 HGB 15.3 HCT 44.6 MCV 98 MCHC 34.3 PLT 221 RDW-CV 13.2 Neutrophil % 69.2 Immature Granulocytes % 0.5 Lymphocyte % 17.1 Monocyte % 8.1 Eosinophil % 4.4 Basophil % 0.7 Neutrophil Count 4.09 Lymphocyte Count 1.01 L Monocyte Count 0.48 Eosinophil Count 0.26 Basophil Count 0.04 Basic Metabolic Panel 21-Sep-2022 20:00:00 ResultValue Glucose, Serum 91 NA 141 K 3.5 CL 103 Bicarbonate, Serum 25 Anion Gap, Serum 17 BUN 12 CREAT 0.75 GFR Male >90 Calcium, Serum 8.9 Radiology Results: Impression: No acute cardiopulmonary disease. Signed by Artemio Wilson MD Xray Chest 1 View [Sep 21 2022 8:15PM] VITAL SIGNS: T PRBP SpO2O2(LPM) %FiO2 Method 21-Sep-2022 22:52:[id number] 94 21-Sep-2022 21:11:[id number]/106 94 21-Sep-2022 20:21:[id number] 96 21-Sep-2022 20:19:[id number] 99 21-Sep-2022 20:18:[id number] 97 21-Sep-2022 20:00:[id number] 96 21-Sep-2022 19:24:00-36.03581690/6 3 96 room air, no respiratory support MDM MDM/ED COURSE: Upon arrival patient was placed on a monitor and IV access was established. Ministered labetalol 20 mg IVP due to hypertension. His EKG was negative for STEMI, initial and repeat troponin were negative for ACS. Patient's chest pain did eventually go away and he felt better. I did offer and recommend admission. Patient declined and decided to go home. He stated he would follow-up with his primary care physician PROGRESS NOTE EKG Post-Procedure Diagnosis: EKG INTERPRETATION: Impression: Sinus tachycardia rate of 107, narrow complex, normal axis, no ST elevation or depression, no ectopy. DISPOSITION Diagnosis/Annotation: ED Dx Name:Chest pain Code:R07.9 Name:Hypertension Code:I10 Disposition: discharged Type: home CONSULT CRITICAL CARE TIME Is this a critically ill patient: no Blanche (more content not included)... Normal [facility] Risk Screen - Adult Emergenc yon 09-21-2022 Risk Screen - Adult Emergency Preferred Language: Preferred Language: Preferred Language for Discussing Health Care (patient/designee)Engl jerardo Patient Preferred Pharmacy: Patient Preferred Pharmacy Statement: I have reviewed and updated the patient's preferred pharmacy selection for today's visit. Advanced Directives: Advance Directive/DNRno Advance Directive Information Givenpatient/family declined Family Violence Adult: Abuse Screen: Are you or have you been threatened or abused physically, emotionally, or sexually by anyoneno Learning Assessment (Patient): Learning Assessment (Patient): Patient is Able to be Assessed for Learningyes Factors Influencing Readiness to Learninterest in learning Factors that Impact Ability to Learnnone Devices/Methods Used to Communicatenone Learning Preferencesverbal instruction Cultural Considerationsnone Developmental Considerationsnone Buddhism Considerationsnone Learning Assessment (Other Learner): Learning Assessment (Other Learner): Other learner availableno Pressure Injury/TB/Substance: Pressure Injury: Pressure Injury Present on Admissionno Do you have a coughno Smoking Statusnever smoker Alcohol Usedenies Drug Usedenies Admission Risk Screen: Significant IndicatorsComplete CAGE: CAGE: Is this an injured patient at a Trauma Center ([facility]/[place]): no Electronic Signatures: Candace Houston (RN) (Signed 21-Sep-2022 19:30) Authored: Preferred Language, Patient Preferred Pharmacy, Advanced Directives, Family Violence Adult, Learning Assessment (Patient), Learning Assessment (Other Learner), Pressure Injury/TB/Substance, Pressure Injury, CAGE Last Updated: 21-Sep-2022 19:30 by Candace Houston (AJ) Normal [facility] TROPONIN I, HIGH SENSITIVITY on 09-21-2022 TROPONIN I, HIGH SENSITIVITY 12 ng/L Normal 0 - 20 [facility] Comment on above: Result Comment: . Less than 99th percentile of normal range cutoff- Female and children under 18 years old <14 ng/L; Male <21 ng/L: Negative Repeat testing should be performed if clinically indicated. . Female and children under 18 years old 14-50 ng/L; Male 21-50 ng/L: Consistent with possible cardiac damage and possible increased clinical risk. Serial measurements may help to assess extent of myocardial damage. . >50 ng/L: Consistent with cardiac damage, increased clinical risk and myocardial infarction. Serial measurements may help assess extent of myocardial damage. . NOTE: Children less than 1 year old may have higher baseline troponin levels and results should be interpreted in conjunction with the overall clinical context. . NOTE: Troponin I testing is performed using a different testing methodology at [facility] than at other [facility]. Direct result comparisons should only be made within the same method. Performed By: #### T [facility] #### [place] [address] Triage - EDon 09-21-2022 Triage - ED Chart Review: PRIMARY ASSESSMENT BISI FORD'betty primary assessment is Within Defined Limits. The airway is open and patent. Breathing spontaneous and unlabored with clear breath sounds bilaterally. Circulation is normal with good peripheral pulses. Skin is warm and dry and color is normal for race. ARRIVAL INFORMATION Means of Arrival: wheelchair Mode of Arrival: private vehicle Arrival From: home Accompanied By: self Language: Spoken Language Preferred: Palestinian CHIEF COMPLAINT BISI FORD is a Male patient with a chief complaint of chest pain (Patient complains of throbbing chest pain that started 2 1/2 hours ago, denies shortness of breath, denies N+V.). Triage Date/Time: 21-Sep-2022 19:24 KATELYNN: 2 Pain Rating (0-10): 7 = Severe Pain location: chest Vital Signs: Temperature: 98.0F ( 36.6C) taken temporal Blood Pressure: 91/63 Mean: Heart Rate: 104 Respiratory Rate: 17 Pulse Oximetry: 96% on room air, no respiratory support. Height: 5 feet 9.00 inches. 175.2 CM Weight: 211.6 pounds. Calculated 96.0 kg. (stated) Calculated BMI (kg/m2): 31.275 Calculated BSA (m2) 2.16 Juaquin Coma Scale: Best Eye Response: (E4) spontaneous Best Motor Response: (M6) obeys commands Best Verbal Response: (V5) oriented Union Score: 15 Allergies: no Patient has homicidal thoughts: no Risk Screens Suicide Risk Screen In the Past Month: Have you wished you were or wished you could go to sleep and not wake up no In the Past Month: Have you had any actual thoughts of killing yourself no In Your Lifetime: Have you ever done anything, started to do anything, or prepared to do anything to end your life no Matos Fall Scale Screening Has the patient fallen before (or is the patient in the ED as a result of a fall) has not had a fall Does the patient have an impaired gait does not have impaired gait Is the patient cognitively impaired not cognitively impaired Interventions: Matos Fall Interventions: LOW INTERVENTIONS: *patient oriented to surroundings and call system, * patient/family falls education completed and documented, *patients fall status communicated during bedside handoff, *whiteboard updated, *mode of toileting discussed with patient, *bed in low position with brakes locked, *call light in reach, * non-skid footwear TRAVEL HISTORY Travel History Coronavirus Screening: no exposure or symptoms Travel Exposure History: NO travel to International locations in the past 30 days PAIN Pain Scale Used: ESTIVEN Pain Rating (0-10): 7 = Severe Past Medical History: Past Medical History Reviewedyes HTN: Past Medical History, Active Electronic Signatures: Candace Houston (RN) (Signed 21-Sep-2022 19:29) Authored: Quick Triage, Risk Screens, Pain, Arrival, ABCD, Travel History, Chart Review, Scores, Past Medical History Last Updated: 21-Sep-2022 19:29 by Candace Houston (RN) [facility] No Panel InformationOrdered By: Dr. Rivera on 06-01-2022 Prostate Specific Antigen Screen 3.61 ng/mL 0.00-4.00 [facility] Comment on above: This test was perfor med using the TPSA assay method for theAXADO chemistry system. Values obtained with differentassay methods cannot be used interchangably.When changing PSA assays in the course of monitoring apatient, additional sequential testing should be carriedout to confirm baseline values. Basophil percentageOrdered B y: Dr. Horta on 04-25-2022 WBC (Bld) [#/Vol] 5.7 10*3/uL 4.4-11.0 [facility] Blood erythrocytes count (nu mber/volume)Ordered By: Dr. Horta on 04-25-2022 RBC (Bld) [#/Vol] 4.67 10*6/uL 4.6-6.2 [facility] Blood hemoglobin measurement (mass/volume)Ordered By: Dr. Horta on 04-25-2022 Hemoglobin (Bld) [Mass/Vol] 15.7 g/dL 13.0-16.5 [facility] Blood platelet mean volumeOr dered By: Dr. Horta on 04-25-2022 Platelet mean volume (Bld) [Entitic vol] 9.4 fL 6.2-12.0 [facility] Determination of erythrocyte mean corpuscular volume (MCV)Ordered By: Dr. Horta on 04-25-2022 MCV (RBC) [Entitic vol] 98.9 fL 80-94 [facility] Hematocrit Auto (Bld) [Volum e fraction]Ordered By: Dr. Horta on 04-25-2022 Hematocrit (Bld) [Volume fraction] 46.2 % 40-54 [facility] Laboratory - Chemistry and C hemistry - challengeOrdered By: Dr. Horta on 04-25-2022 Cobalamin (Vitamin B12) [Mass/Vol] 327 pg/mL 211-911 [facility] Laboratory - Hematology and Cell countsOrdered By: Dr. Horta on 04-25-2022 Erythrocyte distribution width (RBC) [Entitic vol] 46.2 fL 35.1-43.9 [facility] Erythrocyte distribution width (RBC) [Ratio] 12.7 % 11.6-14.6 [facility] MCH (RBC) [Entitic mass] 33.6 pg 27.0-32.0 [facility] MCHC Auto (RBC) [Mass/Vol]Or dered By: Dr. Horta on 04-25-2022 MCHC (RBC) [Mass/Vol] 34.0 g/dL 32-36 [facility] No Panel InformationOrdered By: Dr. Horta on 04-25-2022 Thyroid Stimulating Hormone (TSH) 3.57 uIU/mL 0.358-3.74 [facility] Platelets bldOrdered By: Dr. Horta on 04-25-2022 Platelets (Bld) [#/Vol] 273 10*3/uL 150-450 [facility] Basophil percentageOrdered B y: Dr. Marcos on 02-24-2022 Chloride [Moles/Vol] 104 mmol/L 98-107 [facility] Cholesterol [Mass/Vol] 216 mg/dL <200 [facility] Comment on above: <200 mg/dL Desirable 200-240 mg/dL Borderline >240 mg/dL High Risk Glucose [Mass/Vol] 85 mg/dL 74-106 [facility] Potassium [Moles/Vol] 3.7 mmol/L 3.5-5.1 [facility] Comment on above: Slight Hemolysis, Re sult may be falsely increased. Sodium [Moles/Vol] 140 mmol/L 136-145 [facility] Triglyceride [Mass/Vol] 67 mg/dL <199 [facility] Comment on above: The drugs N-Acetylcy steine and Metamizole may falsely depress this assay.Serum Triglycerides Reference Interval Normal <150 mg/dL Borderline high 150 - 199 mg/dL High 200 - 499 mg/dL Very High > or = 500 mg/dL Laboratory - Chemistry and C hemistry - challengeOrdered By: Dr. Marcos on 02-24-2022 CO2 [Moles/Vol] 26.0 mmol/L 21.0-32.0 [facility] Urea nitrogen/Creatinine [Mass ratio] 21.2 mg/mg 10-20 [facility] No Panel InformationOrdered By: Dr. Marcos on 02-24-2022 Estimated GFR (MDRD) Amer 111 mL/min >60 [facility] Comment on above: GFR Calc Estimated GFR (MDRD) Non-Af Amer 92 mL/min >60 [facility] Comment on above: Non- GFR Calc Serum or plasma calcium rc urement (mass/volume)Ordered By: Dr. Marcos on 02-24-2022 Calcium [Mass/Vol] 9.6 mg/dL 8.5-10.1 [facility] Serum or plasma cholesterol in HDL measurement (mass/volume)Ordered By: Dr. Marcos on 02-24-2022 Cholesterol in HDL [Mass/Vol] 93 mg/dL >40 [facility] Comment on above: The drugs N-Acetylcy steine and Metamizole may falsely depress this assay. Reference Range HDL <40 mg/dL Low HDL Cholesterol HDL >or= 60 mg/dL High HDL Cholesterol Serum or plasma cholesterol in VLDL measurement (mass/volume)Ordered By: Dr. Marcos on 02-24-2022 Cholesterol in VLDL [Mass/Vol] 13 mg/dL 5-40 [facility] Serum or plasma creatinine m easurement (mass/volume)Ordered By: Dr. Marcos on 02-24-2022 Creatinine [Mass/Vol] 0.90 mg/dL 0.70-1.30 [facility] Comment on above: The validity of the calculated GFR & GFRAA in patients over 70 years has not been determined. Clinical correlation is essential. Serum or plasma low density lipoprotein (LDL) cholesterol measurement (mass/volume)Ordered By: Dr. Marcos on 02-24-2022 Cholesterol in LDL [Mass/Vol] 110 mg/dL 0-130 [facility] Serum or plasma urea nitroge n measurement (mass/volume)Ordered By: Dr. Marcos on 02-24-2022 Urea nitrogen [Mass/Vol] 19 mg/dL 7-18 [facility] Thin prep Papanicolaou smear with manual screeningOrdered By: Dr. Marcos on 02-24-2022 Thin prep Papanicolaou smear with manual screening 07-24 [facility] PSA Screenon 02-15-2017 PSA 3.04 ng/mL Normal [facility] Comment on above: Result Comment: AGE- SPECIFIC REFERENCE RANGES FOR SERUM PSA REFERENCE RANGE NG/ML AGE ASIANS BLACKS WHITE 40-49 0-2 0-2 0-2.5 50-59 0-3 0-4 0-3.5 60-69 0-4 0-4.5 0-4.5 70-79 0-5 0-5.5 0-6.5 PSA INCREASES WITH AGE, RACE, AND EJACULATION WITHIN 48 HRS. [facility] VOL24,NO.2, , PG.339 Performed By: #### [id number] ####TANJA [id number] [place] [id number] Vital Signs Date Time Vital Sign Value Performing Clinician Facility 12-15-2024 08:49-0400 Body height 177.8 cm Sammie Storey MD Work Phone: [facility] 12-15-2024 08:49-0400 Body mass index (BMI) [Ratio] 31.06 kg/m2 Sammie Storey MD Work Phone: [facility] 12-15-2024 08:49-0400 Body weight 98.2 kg Sammie Storey MD Work Phone: [facility] 12-15-2024 08:49-0400 Diastolic blood pressure 89 mm[Hg] Sammie Storey MD Work Phone: [facility] 12-15-2024 08:49-0400 Heart rate 73 /min Sammie Storey MD Work Phone: [facility] 12-15-2024 08:49-0400 SaO2% (BldA) [Mass fraction] 96 % Sammie Storey MD Work Phone: [facility] 12-15-2024 08:49-0400 Systolic blood pressure 128 mm[Hg] Sammie Storey MD Work Phone: [facility] 12-11-2024 07:30-0400 Body height 177.8 cm [facility] 12-11-2024 07:30-0400 Body mass index (BMI) [Ratio] 31.39 kg/m2 [facility] 12-11-2024 07:30-0400 Body weight 99.25 kg [facility] 12-11-2024 07:24-0400 Diastolic blood pressure 71 mm[Hg] [facility] 12-11-2024 07:24-0400 Heart rate 72 /min [facility] 12-11-2024 07:24-0400 SaO2% (BldA) [Mass fraction] 99 % [facility] 12-11-2024 07:24-0400 Systolic blood pressure 108 mm[Hg] [facility] 06-17-2024 13:42-0400 Body height 177.8 cm Yvette Garrison CNP Work Phone: [facility] 06-17-2024 13:42-0400 Body mass index (BMI) [Ratio] 31.57 kg/m2 Yvette Garrison CNP Work Phone: [facility] 06-17-2024 13:42-0400 Body weight 99.79 kg Yvette Garrisonebony GARCÍA Work Phone: [facility] 05-27-2024 08:29-0400 Body height 177.[address] Serenity Marcos MD Work Phone: [facility] 05-27-2024 08:29-0400 Body mass index (BMI) [Ratio] 32.3 kg/m2 Dr. Serenity Marcos MD Work Phone: [facility] 05-27-2024 08:29-0400 Body temperature 98.4 [degF] Dr. Serenity Mracos MD Work Phone: [facility] 05-27-2024 08:29-0400 Body weight 102.[address] Serenity Marcos MD Work Phone: [facility] 05-27-2024 08:29-0400 Diastolic blood pressure 86 mm[Hg] Dr. Serenity Marcos MD Work Phone: [facility] 05-27-2024 08:29-0400 Heart rate 86 /min Dr. Serenity Marcos MD Work Phone: [facility] 05-27-2024 08:29-0400 Respiratory rate 16 /min Dr. Serenity Marcos MD Work Phone: [facility] 05-27-2024 08:29-0400 SaO2% (BldA) [Mass fraction] 97 % Dr. Serenity Marcos MD Work Phone: [facility] 05-27-2024 08:29-0400 Systolic blood pressure 132 mm[Hg] Dr. Serenity Marcos MD Work Phone: 5(688)[phone] [address] 02-27-2023 13:06-0500 Body height 177.[address] Serenity Marcos Work Phone: 9(937)[phone] [address] 02-27-2023 13:06-0500 Body mass index (BMI) [Ratio] 31.9 kg/m2 Dr. Serenity Marcos Work Phone: 9(109)[phone] [place] [address] 02-27-2023 13:06-0500 Body temperature 97.8 [degF] Dr. Serenity Marcos Work Phone: 0(165)[phone] [address] 02-27-2023 13:06-0500 Body weight 100.[address] Serenity Marcos Work Phone: [facility] 02-27-2023 13:06-0500 Diastolic blood pressure 98 mm[Hg] Dr. Serenity Marcos Work Phone: [facility] 02-27-2023 13:06-0500 Heart rate 96 /min Dr. Serenity Marcos Work Phone: [facility] 02-27-2023 13:06-0500 Respiratory rate 17 /min Dr. Serenity Marcos Work Phone: [facility] 02-27-2023 13:06-0500 SaO2% (BldA) [Mass fraction] 97 % Dr. Serenity Marcos Work Phone: [facility] 02-27-2023 13:06-0500 Systolic blood pressure 140 mm[Hg] Dr. Serenity Marcos Work Phone: [facility] 09-22-2022 00:52-0400 Diastolic blood pressure 112 mm[Hg] Serenity Marcos Other Phone: [facility] 09-22-2022 00:52-0400 Heart rate 85 /min Serenity Marcos Other Phone: [facility] 09-22-2022 00:52-0400 Respiratory rate 16 /min Serenity Marcos Other Phone: [facility] 09-22-2022 00:52-0400 SaO2% (BldA) [Mass fraction] 94 % Serenity Marcos Other Phone: [facility] 09-22-2022 00:52-0400 Systolic blood pressure 163 mm[Hg] Serenity Marcos Other Phone: [facility] 09-21-2022 21:24-0400 Body height 175.2 cm Serenity Marcos Other Phone: [facility] 09-21-2022 21:24-0400 Body temperature 97.88 [degF] Serenity Marcos Other Phone: [facility] 09-21-2022 21:24-0400 Body weight 96 kg Serenity Marcos Other Phone: [facility] 04-25-2022 10:00-0500 Body height 177.[address] Serenity Marcos Work Phone: [facility] 04-25-2022 10:00-0500 Body mass index (BMI) [Ratio] 30.6 kg/m2 Dr. Serenity Marcos Work Phone: [facility] 04-25-2022 10:00-0500 Body temperature 98.4 [degF] Dr. Serenity Marcos Work Phone: [facility] 04-25-2022 10:00-0500 Body weight 96.[address] Serenity Marcos Work Phone: [facility] 04-25-2022 10:00-0500 Diastolic blood pressure 90 mm[Hg] Dr. Serenity Marcos Work Phone: [facility] 04-25-2022 10:00-0500 Heart rate 79 /min Dr. Serenity Marcos Work Phone: [facility] 04-25-2022 10:00-0500 Respiratory rate 6 /min Dr. Serenity Marcos Work Phone: [facility] 04-25-2022 10:00-0500 SaO2% (BldA) [Mass fraction] 98 % Dr. Serenity Marcos Work Phone: [facility] 04-25-2022 10:00-0500 Systolic blood pressure 144 mm[Hg] Dr. Serenity Marcos Work Phone: [facility] Encounters Encounter Date Encounter Type Care Provider Facility Start: 01-16-2025 End: 01-16-2025 Postop follow up visit related to original px Cristo Cervantes MD Work Phone: 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 Start: 12-31-2024 End: 12-31-2024 ambulatory SERENITY JURADO [facility] Start: 12-31-2024 End: 12-31-2024 [facility] Start: 12-18-2024 End: 12-18-2024 ambulatory [facility] Start: 12-15-2024 End: 12-15-2024 Office outpatient new 30 minutes Cristo Cervantes MD Work Phone: [facility] Comment on above: Preoperative cardiov ascular examination (Primary Dx); Primary osteoarthritis of right hip Start: 12-15-2024 End: 12-15-2024 Patient encounter status Cristo Cervantes MD Work Phone: [facility] Work Phone: Start: 12-15-2024 End: 12-19-2024 ambulatory SAMMIE HUA [facility] Start: 12-15-2024 End: 12-19-2024 Encounter for preprocedural cardiovascular examination [facility] Start: 12-12-2024 End: 12-12-2024 Documentation procedure Arlin Lanier TECHNOLOGIST [facility] Start: 12-11-2024 End: 12-11-2024 Patient encounter procedure Cristo Cervantes MD Work Phone: [facility] Preadmission Testing Comment on above: Primary osteoarthrit is of right hip; Hypertension, unspecified type Start: 12-11-2024 End: 12-15-2024 ambulatory SERENITY ADRIEN [facility] Start: 11-11-2024 End: 11-11-2024 Documentation procedure Pepe Karimi LPN [facility] Start: 10-24-2024 End: 10-24-2024 Orders Only Cristo Cervantes MD Work Phone: [facility] Comment on above: Primary osteoarthrit is of right hip (Primary Dx) Start: 09-05-2024 End: 09-05-2024 Admission to same day surgery center Cristo Cervantes MD Work Phone: [facility] Comment on above: Primary osteoarthrit is of right hip (Primary Dx); Hypertension, unspecified type; Blood tests prior to treatment or procedure Start: 09-05-2024 End: 09-05-2024 Evaluation finding Cristo Cervantes MD Work Phone: [facility] Start: 08-28-2024 End: 08-28-2024 Office outpatient visit 10 minutes Yvette Garrison CNP Work Phone: [facility] Comment on above: Primary osteoarthrit is of right hip (Primary Dx) Start: 08-28-2024 End: 08-28-2024 ambulatory [facility] Start: 08-25-2024 End: 08-25-2024 Documentation procedure Pepe Karimi LPN [facility] Start: 08-07-2024 End: 08-11-2024 ambulatory Yvette Garrison CNP Work Phone: [facility] Comment on above: Primary osteoarthrit is of right hip (Primary Dx) Start: 08-05-2024 End: 08-09-2024 ambulatory Yvette Garrison CNP [facility] Phone: [facility] Comment on above: Primary osteoarthrit is of right hip (Primary Dx) Start: 07-31-2024 End: 07-31-2024 [facility] Start: 07-29-2024 End: 08-02-2024 ambulatory Yvettedaly Garrison CNP Work Phone: [facility] Comment on above: Primary osteoarthrit is of right hip (Primary Dx) Start: 07-24-2024 End: 07-28-2024 ambulatory Serenity Marcos MD Work Phone: [facility] Comment on above: Primary osteoarthrit is of right hip (Primary Dx) Start: 07-22-2024 End: 07-26-2024 ambulatory Yvette Garrison CNP Work Phone: [facility] Comment on above: Primary osteoarthrit is of right hip (Primary Dx) Start: 07-18-2024 End: 07-22-2024 ambulatory Yvette Garrison CNP Work Phone: [facility] Comment on above: Primary osteoarthrit is of right hip (Primary Dx) Start: 07-16-2024 End: 07-20-2024 [facility] Start: 07-08-2024 End: 07-08-2024 Orders Only Pepe Karimi LPN [facility] Comment on above: Primary osteoarthrit is of right hip (Primary Dx) Start: 06-27-2024 End: 06-27-2024 Orders Only Pepe Karimi SALES AND SERVICE CONSULTANT [facility] Comment on above: Primary osteoarthrit is of right hip (Primary Dx) Start: 06-17-2024 End: 06-17-2024 Office outpatient new 30 minutes Serenity Marcos MD Work Phone: [facility] Comment on above: Primary osteoarthrit is of right hip (Primary Dx); Right hip pain Start: 06-17-2024 End: 06-21-2024 ambulatory YVETTE OLIVEIRA [facility] Start: 06-13-2024 End: 06-13-2024 ambulatory [facility] Start: 06-10-2024 ambulatory PEPE KARIMI [facility] Start: 06-05-2024 End: 06-05-2024 Transcribe Orders Keshav [facility] Comment on above: Right hip pain (Prim nima Dx) Start: 05-27-2024 End: 05-27-[address] Franky Horta MD -[facility] Work Phone: Start: 05-27-2024 End: 05-27-2024 ambulatory Franky Horta Facility:[facility] Start: 05-20-2024 End: 05-20-[address] Serenity Marcos MD Work Phone: [facility] Work Phone: Start: 05-20-2024 End: 05-20-[address] Serenity Marcos MD -[facility] Work Phone: Start: 05-20-2024 End: 05-20-2024 ambulatory Serenity Marcos Facility:[facility] Start: 05-14-2023 End: 05-14-[address] Serenity Marcos Work Phone: [facility] Work Phone: Start: 05-14-2023 End: 05-14-[address] Serenity Marcos Work Phone: [facility] Start: 02-27-2023 End: 02-27-[address] Serenity Marcos Work Phone: [facility] Work Phone: Start: 09-21-2022 End: 09-22-2022 Emergency department patient visit Perez Pickens [facility] 13 Start: 06-01-2022 End: 06-01-[address] Serenity Marcos Work Phone: [facility] Work Phone: Start: 06-01-2022 End: 06-01-[address] Serenity Marcos Work Phone: [facility] Start: 04-25-2022 End: 04-25-[address] Serenity Marcos Work Phone: [facility] Work Phone: Start: 04-25-2022 End: 04-25-[address] Serenity Marcos Work Phone: [facility] Start: 04-25-2022 End: 04-25-[address] Serenity Marcos Work Phone: [facility] Start: 02-24-2022 End: 02-24-2022 ambulatory [facility] Work Phone: Start: 02-24-2022 End: 02-24-2022 [facility] Start: 07-27-2017 End: 07-27-2017 Ambulatory Tam Odonnell Facility:[facility] Start: 05-03-2017 End: 05-04-2017 Ambulatory Tam Odonnell Facility:Tam Odonnell DO Start: 02-15-2017 End: 02-16-2017 Ambulatory Serenity Marcos Facility:[facility] Procedures Date Procedure Procedure Detail Performing Clinician Start: 12-17-2024 Ecg routine ecg w/le ast 12 lds w/i&r Cristo Cervantes MD Work Phone: Start: 12-11-2024 Basic metabolic pane l calcium total Cristo Cervantes MD Work Phone: Start: 12-11-2024 Complete blood count with white cell differential, manual Cristo Cervantes MD Work Phone: Start: 12-11-2024 Cul prsmptv pthgnc organism scrn w/colony estimj Cristo Cervantes MD Work Phone: Start: 05-20-2024 Plain x-ray of pelvi s and lower extremity Dr. Serenity Marcos MD Work Phone: Start: 09-21-2022 End: 09-21-2022 EKG impression Perez Pickens Plan of Treatment Date Care Activity Detail Author Start: 05-18-2038 Respiratory Syncytia l Virus Immunization: Risk, 60-74 Risk, or 75+ (1 - 1-dose 75+ series) Respiratory Syncytial Virus Immunization: Risk, 60-74 Risk, or 75+ (1 - 1-dose 75+ series) [facility] Start: 05-18-2038 RSV Vaccines (1 - 1- dose 75+ series) RSV Vaccines (1 - 1-dose 75+ series) [facility] Start: 03-21-2027 Tetanus vaccination Tetanus: Every [address] [facility] Start: 03-21-2027 Vaccination for diphtheria, pertussis, and tetanus Tetanus/Diphtheria/Pert ussis (2 - Td or Tdap) [facility] Start: 02-13-2025 End: 02-13-2025 Follow-up encounter 02/13/2025 9:00 AM EST Follow-Up [facility] [address] [place] [address] Yvette Garrison CNP [address] [place] [phone] [facility] Start: 01-16-2025 End: 01-16-2025 Follow-up encounter 01/16/2025 2:15 PM EST Follow-Up [facility] [address] [place] [address] Cristo Cervantes MD [address] [place] [phone] [facility] Start: 12-31-2024 End: 12-31-2024 Admission to same day surgery center 12/31/2024 7:15 AM EDT - 12/31/2024 9:44 AM EDT Surgery [facility] [address] [place] [address] Cristo Cervantes MD [address] [place] [phone] Right total hip replacement Robotic [facility] Comment on above: Right total hip repl acement Robotic Start: 12-31-2024 End: 12-31-2024 Arthrp acetblr/prox fem prostc agrft/algrft ARTHROPLASTY HIP ROBOTIC Primary osteoarthritis of right hip 12/31/2024 7:15 AM EDT [facility] Main OR Start: 12-31-2024 Subsequent hospital visit by physician [facility] Start: 12-18-2024 End: 12-18-2024 Patient encounter procedure 12/18/2024 9:00 AM EDT Surgical Consult [facility] [address] [place] [address] Cristo Cervantes MD [address] [place] [phone] [facility] Start: 12-15-2024 End: 12-15-2024 Patient encounter procedure 12/15/2024 9:00 AM EDT Office Visit [facility] [address] [place] [phone] Cristo Cervantes MD [address] [place] [address] Sammie Storey MD [address] [place] [address] [facility] Start: 12-11-2024 End: 12-11-2024 Patient encounter procedure [facility] Preadmission Testing Start: 11-27-2024 End: 11-27-2024 Patient encounter procedure 11/27/2024 10:00 AM EDT Office Visit [facility] [address] [place] [place] [phone] Sammie Storey MD [address] [place], [place] [phone] [facility] Start: 11-10-2024 COVID-19 Vaccine ( season) COVID-19 Vaccine ( season) [facility] Start: 11-10-2024 COVID-19 Vaccine ( season) COVID-19 Vaccine ( season) [facility] Start: 11-10-2024 Influenza vaccination [facility] Start: 08-28-2024 End: 08-28-2024 Patient encounter procedure 08/28/2024 1:00 PM EDT Office Visit [facility] [address] [place] [address] Yvette Garrison, RICKY [address] [place] [phone] [facility] Start: 08-07-2024 End: 08-07-2024 ambulatory 08/07/2024 1:00 PM EDT Treatment [facility] [address] [place] [address] Yvette Garrison, ORCHARD HAND [address] [place] [phone] Misael Bonilla PTA [facility] Start: 08-05-2024 End: 08-05-2024 ambulatory 08/05/2024 1:00 PM EDT Treatment [facility] [address] [place] [phone] Yvette Garrison, ORCHARD HAND [address] [place] [phone] Ximena Camara, PT [facility] Start: 07-31-2024 End: 07-31-2024 Patient encounter procedure 07/31/2024 10:00 AM EDT Appointment [facility] [address] [place] [address] Yvette Garrison, ORCHARD HAND [address] [place] [phone] [facility] Start: 07-31-2024 Subsequent hospital visit by physician 07/31/2024 10:00 AM EDT Hospital Encounter [facility] [address] [facility] [place] [address] Yvette Garrison, RICKY [address] [place] [address] [facility] Start: 07-29-2024 End: 07-29-2024 ambulatory 07/29/2024 1:00 PM EDT Treatment [facility] [address] [place] [address] Yvette Garrison, ORCHARD HAND [address] [place] [address] Ximena Camara, DAMIÁN [facility] Start: 07-24-2024 End: 07-24-2024 ambulatory 07/24/2024 2:30 PM EDT Treatment [facility] [address] [place] [address] Serenity Marcos MD [address] [facility] [place] [address] [place] [address] Ximena Camara, DAMIÁN Discharge Disposition: Home [facility] Start: 07-22-2024 End: 07-22-2024 ambulatory 07/22/2024 1:00 PM EDT Treatment [facility] [address] [place] [address] Yvette Garrison, ORCHARD HAND [address] [place] [address] Ximena Camara, DAMIÁN Discharge Disposition: Home [facility] Start: 11-11-2023 COVID-19 Vaccine ( season) COVID-19 Vaccine ( season) [facility] Start: 05-18-2013 Administration of he rpes zoster vaccine Zoster Vaccines (1 of 2) [facility] Start: 05-18-2013 Pneumococcal Vaccine : 50+ Years (1 of 1 - PCV) Pneumococcal Vaccine: 50+ Years (1 of 1 - PCV) [facility] Start: 05-18-2013 Pneumococcal Vaccine : Age 50+ (1 of 1 - PCV) Pneumococcal Vaccine: Age 50+ (1 of 1 - PCV) [facility] Start: 05-18-2013 Screening for malign ant neoplasm of colon Flexible sigmoidoscopy [facility] Start: 05-18-1981 Hepatitis C screening Hepatitis C Sc reening [facility] Start: 05-18-1978 HIV screening HIV Screening [facility] Start: 1975 Depression screening using PHQ-9 (Patient Health Questionnaire 9) score Depression Screening/Follow-Up (PHQ-2/9) [facility] Start: 05-18-1966 History and physical examination, annual for health maintenance Wellness Visit [facility] Start: 05-18-1964 Fgvsdba-qrwef-yozvya a vaccination MMR Vaccines (1 of 1 - Standard series) [facility] Start: 1963 Prostate specific antigen measurement PSA Level [facility] Start: 1963 Screening for malign ant neoplasm of colon [facility] End: 09-05-2025 12 lead ECG ECG 12 Lead ECG Routine Primary osteoarthritis of right hip 1 Occurrences starting 09/05/2024 until 09/05/2025 [facility] Comment on above: 1 Occurrences starti ng 09/05/2024 until 09/05/2025 Arthrp acetblr/prox fem prostc agrft/algrft ARTHROPLASTY HIP ROBOTIC Primary osteoarthritis of right hip [facility] End: 09-05-2025 Basic metabolic 2000 panel - Serum or Plasma Basic metabolic panel Lab Routine Primary osteoarthritis of right hip 1 Occurrences starting 09/05/2024 until 09/05/2025 [facility] Comment on above: 1 Occurrences starti ng 09/05/2024 until 09/05/2025 End: 09-05-2025 Complete blood count with white cell differential, manual CBC and differential Lab Routine Primary osteoarthritis of right hip Hypertension, unspecified type 1 Occurrences starting 09/05/2024 until 09/05/2025 [facility] Comment on above: 1 Occurrences starti ng 09/05/2024 until 09/05/2025 End: 12-27-2024 CT Guidance for injection of Sacroiliac joint - right XR Aspiration Injection Large Joint Right Imaging Routine Primary osteoarthritis of right hip 1 Occurrences starting 06/27/2024 until 12/27/2024 [facility] Work Phone: Comment on above: 1 Occurrences starti ng 06/27/2024 until 12/27/2024 End: 10-24-2025 CT Hip - right WO contrast CT Hip Right Without Contrast Imaging Routine Primary osteoarthritis of right hip 1 Occurrences starting 10/24/2024 until 10/24/2025 [facility] Work Phone: Comment on above: 1 Occurrences starti ng 10/24/2024 until 10/24/2025 End: 09-05-2025 Incentive spirometry - Initial Instruction Incentive spirometry - Initial Instruction Respiratory Care Routine Primary osteoarthritis of right hip 1 Occurrences starting 09/05/2024 until 09/05/2025 [facility] Work Phone: Comment on above: 1 Occurrences starti ng 09/05/2024 until 09/05/2025 End: 09-05-2025 Methicillin resistant Staphylococcus aureus [Presence] in Unspecified specimen by Organism specific culture MRSA Culture Microbiology Routine Primary osteoarthritis of right hip 1 Occurrences starting 09/05/2024 until 09/05/2025 [facility] Comment on above: 1 Occurrences starti ng 09/05/2024 until 09/05/2025 Payers Date Payer Category Payer Self-pay [id number] 2020 [facility]/PREF/H[facility]/PPO [id number] 2020 Unknown [id number] 2017 Unknown 1965 Unknown [id number] 2..840.1.079885.3.579. 2.1069 1963 Unknown [id number] 2..840.1.571349.3.579. 2.900 1963 Unknown [id number] 2.16.840.1.261983.3.579. 2.903 1963 Unknown [id number] 2.16.840.1.120041.3.579. 2. 1965 Unknown [id number] 2.16.840.1.218883.3.579. 2 1965 Unknown [id number] 2.16.840.1.701662.3.579. 2 1965 Unknown [id number] 2.16840.1.690854.3.579. 1963 Unknown [id number] 2.16.840.1.106688.3.579. 2 1963 Unknown [id number] 2.840.1.908406.3.579. 1963 Unknown [id number] 2.840.1.180940.3.579. 1963 Unknown [id number] 2.840.1.831771.3.579. 1963 Unknown [id number] 2.840.1.836993.3.579. 1963 Unknown [id number] .840.1.461318.3.579. 1963 Unknown [id number] 2.16840.1.460786.3.579. 2 1965 Unknown [id number] 2.840.1.490285.3.579. 1963 Unknown [id number] 2.840.1.701548.3.579. 2 1965 Unknown [id number] .16840.1.404424.3.579. 2 1965 Unknown [id number] 2.16840.1.665458.3.579. 2 1963 Unknown [id number] 2.16840.1.363906.3.579. 2 1965 Unknown [id number] 2..840.1.697377.3.579. 2.903 1963 Unknown [id number] 2..840.1.102536.3.579. 2.903 Private Health Insurance DAPHNETKARLIE [id number] Unknown [id number] 2..840.1.472936.3.579. 2.462 Unknown [id number] 2.16.840.1.045624.3.579. 2.462 Unknown [id number] 2..840.1.616886.3.579. 2.462 Social History Date Type Detail Facility Tobacco smoking stat [facility] Unknown if ever smoked [facility] Work Phone: Start: 1965 Sex Assigned At Male [facility] Start: 04-25-2022 End: 02-27-2023 Tobacco smoking status WIIS Unknown if ever smoked [facility] Start: 1965 Sex assigned at Not on file [facility] Start: 06-17-2024 End: 01-17-2025 Gender identity Not on file [facility] Start: 02-27-2023 End: 06-17-2024 Tobacco smoking status WIIS Never smoked tobacco (finding) [facility] Start: 05-30-2024 Sex Male (finding) [facility] Start: 06-17-2024 Tobacco use and exposure Smokeless tobacco non-user [facility] Start: 06-19-2024 End: 01-17-2025 Alcoholic beverage intake Current drinker of alcohol (finding) [facility] Start: 06-17-2024 End: 01-17-2025 History of [address] function [facility] Start: 06-16-2024 Gender identity Identifies as male gender (finding) [facility] Start: 06-16-2024 Sexual orientation Heterosexual (finding) [facility] Medical Equipment Procedure Code Equipment Code Equipment Origin al Text Equipment Identifier Dates Cath 1in Expansi on On-Q [facility] - [id number] Start: 12-31-2024 Shell Roc 52mm 5 hl Clusterhole Puri Psl Trident Ii - [id number] Start: 12-31-2024 Head 36mm/+0 Fem V40 Biolox Delta - [id number] Start: 12-31-2024 Insert 36mm Roc 10deg Poly Trident X3 - [id number] Start: 12-31-2024 Stem 127deg Sz4 Fem Accolade Ii - [id number] Start: 12-31-2024 Goals Date Patient Goal Desired Activity /State Personal health goal Clinical Notes 05-20-2024 to 01-17-2025 Gia Cagle LPN - 01/05/2025 12:54 PM EDTDay, Sammie Butts MD - 12/15/2024 9:00 AM EDTPatient InstructionsArlin Lanier, TECHNOLOGIST - 12/12/2024 10:30 AM EDTPatient Instructions Note Date & Type Note Facility 01-17-2025 Note Wilmer comes in today, two weeks status post right total hip replacement. Doing well. Wound is clean, dry, and intact. No erythema. No drainage. No lymphangitis. No cellulitis. No DVT signs or symptoms. Calf is soft. Leg lengths were equal. IMAGING DATA No x-rays were obtained. IMPRESSION Two weeks right total hip replacement. PLAN He will do home exercises, local wound care, and aspirin protocol, and I will see him in a month. I did a narcotic review. Last listed medication was tramadol on 12/31/2024. AUTHENTICATED BY CRISTO CERVANTES, ON 01/18/2025 10:23:11 [facility] 01-05-2025 History of Presen t illness Narrative I spoke w Wilmer today and he says he is doing great. The hip is feeling much better, pain is better every day. He is up using the stairs. He took a shower today and that went well. His swelling is about the same, he does use ice and elevates his foot in the recliner, His dressing looks clean and is intact. He did have some constipation, used the Senna along w Miralax and has had one bowel movement. We did discuss adding prune juice or MOM if needed. He denies any trouble w urination, no nausea,. His appetite is fair, he says he is eating just once per day. I did ask him to try to increase that. He is trying to drink more water. He is taking 81mg ASA bid, 200mg Celebrex bid, 500mg Keflex tid, 20mg Protonix every day, 10mg Flexeril prn. documented in this encounter [facility] 12-31-2024 Note Orthopedic Total Hip Progress Note Assessment/Plan: Status Post right Total Hip Arthroplasty: Doing well postoperatively. Discharge today, Return to Clinic: 2 weeks LOS: 0 days Subjective: Post-Operative Day: 0 Status Post right Total Hip Arthroplasty Systemic or Specific Complaints:No Complaints Objective: Vital signs in last 24 hours: Temp: [93.9 degrees F (34.4 degrees C)-97.5 degrees F (36.4 degrees C)] 97.3 degrees F (36.3 degrees C) Heart Rate: [54-75] 62 Resp: [16-18] 16 BP: (89-115)/(62-82) 99/64 General: alert, appears stated age, and cooperative Wound: Wound clean and dry no evidence of infection. Motion: Painless Range of Motion DVT Exam: No evidence of DVT seen on physical exam. Data Review CBC: Lab Results Component Value Date WBC 7.26 12/11/2024 RBC 4.18 (L) 12/11/2024 HGB 13.8 12/11/2024 HCT 42.0 12/11/2024 PLT 254 12/11/2024 AUTHENTICATED BY CRISTO CERVANTES, ON 12/31/2024 14:38:07 [facility] 12-31-2024 Note Orthopedic Total Hip Progress Note Assessment/Plan: Status Post right Total Hip Arthroplasty: Doing well postoperatively. Discharge today, Return to Clinic: 2 weeks LOS: 0 days Subjective: Post-Operative Day: 1 Status Post right Total Hip Arthroplasty Systemic or Specific Complaints:No Complaints Objective: Vital signs in last 24 hours: Temp: [93.9 degrees F (34.4 degrees C)-97.5 degrees F (36.4 degrees C)] 97.3 degrees F (36.3 degrees C) Heart Rate: [54-75] 62 Resp: [16-18] 16 BP: (89-115)/(62-82) 99/64 General: alert, appears stated age, and cooperative Wound: Wound clean and dry no evidence of infection. Motion: Painful range of Motion DVT Exam: No evidence of DVT seen on physical exam. Data Review CBC: Lab Results Component Value Date WBC 7.26 12/11/2024 RBC 4.18 (L) 12/11/2024 HGB 13.8 12/11/2024 HCT 42.0 12/11/2024 PLT 254 12/11/2024 AUTHENTICATED BY CRISTO CERVANTES, ON 12/31/2024 14:37:23 [facility] 12-31-2024 Note [id number] [facility] ER FOR HOME MEDICAL EQUIPMENT PATIENT: Bisi Ford : 1965 Statement of Care: I certify that Bisi Ford is under my care and that I, a Nurse Practitioner, Physician's Qualitative Researcher, or Resident working with me, had a [id number]-[id number] encounter with this patient today to evaluate and discuss the need for home medical equipment. I certify that based on the findings of this evaluation, which included but was not limited to the lwod-ro-svnp requirements, the following home medical equipment is medically necessary: Walker for the treatment of mobility limitations to enable participation in mobility-related activities of daily living (MRADL) in the home. Based on the current evaluation, patient can safely use prescribed equipment to perform mobility-related activities of daily living (MRADL) in the home.. Signed by: Cristo Cervantes MD on 12/31/2024 AUTHENTICATED BY CRISTO CERVANTES, ON 12/31/2024 07:22:57 [facility] 12-22-2024 Note HISTORY OF PRESENT I LLNESS Bisi Ford comes today for presurgical consultation regarding his right hip degenerative arthrosis. He is tired of the pain, tired of the discomfort. He has tried pills, shots, physical therapy with no relief whatsoever. He has had injections into the right hip. X-rays, CAT scan, show severe end-stage right hip degenerative arthrosis. PAST MEDICAL HISTORY ALLERGIES Hydrocodone and [place]. ILLNESSES Include depression, high cholesterol, hypertension. SURGERIES Had bilateral shoulder surgery. FAMILY HISTORY Noncontributory. MEDICATIONS Regimen includes baby aspirin, glucosamine, Hyzaar, multivitamins, magnesium, Inderal, Crestor, p.r.n. Relafen. FAMILY HISTORY Noncontributory. REVIEW OF SYSTEMS Right hip pain, groin pain, thigh pain. PHYSICAL EXAMINATION General: The patient is awake, alert, oriented x3, ambulates with an antalgic gait. Chest: Clear. Heart: Regular rate and rhythm. Abdomen: Benign. Neck: No carotid bruits are noted. Musculoskeletal: Right lower extremity neurologically intact. 2+ pulses. Full range of motion throughout the right ankle and knee. Right hip, severe pain at 100 degrees of hip flexion, severe pain with any attempted internal and external rotation. Atrophy in the quadriceps and hamstring region is noted on the right leg. Skin is intact without lesion. HEENT: Normocephalic. IMPRESSION Right hip degenerative arthrosis. PLAN We will proceed with right total hip replacement. All risks and complications were discussed. I have discussed all treatment options with the patient. The patient was part of the entire decision-making process. Mental health status was assessed and a narcotic review was performed. He has no listed narcotics. I informed the patient we would be using a Flavio total hip replacement system. Presurgical medication review was performed with the patient. AUTHENTICATED BY CRISTO CERVANTES, ON 12/22/2024 15:41:06 [facility] 12-15-2024 History of Presen t illness Narrative General Cardiology New Patient Clinic Consult [facility], Heart & Vascular 12/15/2024 Sammie Storey MD [address] [place] [address] 3rd Floor Medical Office [facility] [id number] Patient: Bisi Ford Date of : 1965 (59 y.o.) Referring Provider: Cristo Cervantes,* PCP: Serenity Marcos MD Date of Service: 12/15/2024 Chief Complaint: Initial Visit (Intake) (12/31/24 right total hip replacement with Dr. Cervantes/ No cardiac symptoms ) Assessment and Plan: Preoperative cardiovascular event risk Patient's perioperative cardiovascular event risk 0.1% per the current Roman calculator for adverse cardiovascular events periprocedurally EKG normal, exam normal No further cardiovascular testing would be indicated at this time and patient is currently optimized for proposed procedure It has been a pleasure caring for this patient. Please don't hesitate to reach out to my office directly with any questions or concerns. Follow-up: Return if symptoms worsen or fail to improve. Sammie Storey MD, [facility] Non-Invasive Cardiology [facility] P:[phone] F:[phone] History of Present Illness: Bisi Ford is a 59 y.o. man with a past medical history of hypertension, dyslipidemia who presents today for preoperative evaluation. Patient has no complaints, he lives independently and is able to do all activities of daily living including some housework, stairs etc. No exertional chest pain or pressure or shortness of breath, no orthopnea paroxysmal nocturnal dyspnea. No palpitations dizziness or lightheadedness Objective Review of Systems: All systems were reviewed and are noted to be negative unless otherwise stated in HPI. Past Medical History: Diagnosis Date Arthritis Depression High cholesterol Hypertension Past Surgical History: Procedure Laterality Date SHOULDER SURGERY Bilateral States both rotator and scope 15 years ago History reviewed. No pertinent family history. Tobacco Use History[1] Allergies: Hydrocodone-acetaminophen All of the information has been reviewed at today's visit and modified if necessary. Home Medications: Current Medications[2] Physical Exam: BP 128/89 (BP Location: Right arm, Patient Position: Sitting, BP Cuff Size: Adult) Pulse 73 Ht 5' 10 Wt 98.2 kg (216 lb 8 oz) SpO2 96% BMI 31.06 kg/m Constitutional: Well appearing male, no acute distress Head: Normocephalic and atraumatic. Eyes: Conjunctivae are normal, no scleral icterus, no corneal arcus Neck: No acanthosis nigricans, no elevated jugular venous distension, no hepatojugular reflux Cardiovascular: Regular rate and rhythm, no murmurs appreciated on today's exam, normal S1 and S2, no rubs or gallops, PMI is midline Pulses: +2 dorsalis pedis pulses bilaterally Musculoskeletal: Normal range of motion. No cyanosis. No peripheral Edema Neurological: AOx3, moving all extremities normally Skin: Skin is warm and dry, normal hair pattern Psychiatric: Normal mood and affect, appropriate conversation Cardiovascular Studies: December 11, 2024 normal sinus rhythm Labs: Lab Results Component Value Date GLUCOSE 93 12/11/2024 CALCIUM 10.0 12/11/2024 NA 140 12/11/2024 K 3.6 12/11/2024 CL 101 12/11/2024 BUN 33 (H) 12/11/2024 CREATININE 1.24 12/11/2024 No results found for: ALT, AST, GGT, ALKPHOS, BILITOT Lab Results Component Value Date WBC 7.26 12/11/2024 HGB 13.8 12/11/2024 HCT 42.0 12/11/2024 MCV 100.5 (H) 12/11/2024 PLT 254 12/11/2024 RBC 4.18 (L) 12/11/2024 No results found for: CHOL, LDLCALC, LDLDIRECT, TRIG, HDL No results found for: HGBA1C No results found for: ALT, AST, GGT, ALKPHOS, BILITOT The ASCVD Risk score (Cm DK, et al., 2019) failed to calculate for the following reasons: The valid total cholesterol range is 130 to 320 mg/dL [1] Social History Tobacco Use Smoking Status Never Smokeless Tobacco Never [2] Current Outpatient Medications: aspirin 81 MG EC tablet, Take 1 (one) tablet (81 mg total) by mouth daily ., Disp: , Rfl: glucosamine/chondr rai A sod (OSTEO BI-FLEX ORAL), Take by mouth ., Disp: , Rfl: losartan-hydrochlorothiazide (HYZAAR) 100-25 mg per tablet, Take 1 (one) tablet by mouth daily ., Disp: , Rfl: magnesium oxide-herbal drugs (Beet Root-Magnesium) 150 mg Tab, Take by mouth ., Disp: , Rfl: multivitamin (THERAGRAN) per tablet, Take 1 (one) tablet by mouth daily ., Disp: , Rfl: omega-3 fatty acids/fish oil (fish oil-omega-3 fatty acids) 300-1,000 mg capsule, Take 2 (two) capsules by mouth daily ., Disp: , Rfl: propranoloL (INDERAL LA) 120 MG 24 hr capsule, Take 1 (one) capsule (120 mg total) by mouth daily ., Disp: , Rfl: rosuvastatin (CRESTOR) 10 MG tablet, Take by mouth daily ., Disp: , Rfl: nabumetone (RELAFEN) 750 MG tablet, Take 1 (one) tablet (750 mg total) by mouth 2 (two) times a day . (Patient not taking: Reported on 12/15/2024 .), Disp: 60 tablet, Rfl: [address] encounter [facility] 12-15-2024 Note General Cardiology N ew Patient Clinic Consult [facility] Heart [facility] Vascular 12/15/2024 Sammie Storey MD [address] [place] [address], 3rd Floor Medical Office [facility] [address] Patient: Bisi Ford Date of : 1965 (59 y.o.) Referring Provider: Cristo Cervantes,* PCP: Serenity Marcos MD Date of Service: 12/15/2024 Chief Complaint: Initial Visit (Intake) (12/31/24 right total hip replacement with Dr. Cervantes/ No cardiac symptoms ) Assessment and Plan: Preoperative cardiovascular event risk Patient's perioperative cardiovascular event risk 0.1% per the current Roman calculator for adverse cardiovascular events periprocedurally EKG normal, exam normal No further cardiovascular testing would be indicated at this time and patient is currently optimized for proposed procedure It has been a pleasure caring for this patient. Please don't hesitate to reach out to my office directly with any questions or concerns. Follow-up: Return if symptoms worsen or fail to improve. Sammie Storey MD, [facility] Non-Invasive Cardiology [facility] P:[phone] F:[phone] ----- History of Present Illness: Bisi Ford is a 59 y.o. man with a past medical history of hypertension, dyslipidemia who presents today for preoperative evaluation. Patient has no complaints, he lives independently and is able to do all activities of daily living including some housework, stairs etc. No exertional chest pain or pressure or shortness of breath, no orthopnea paroxysmal nocturnal dyspnea. No palpitations dizziness or lightheadedness Objective Review of Systems: All systems were reviewed and are noted to be negative unless otherwise stated in HPI. Past Medical History: Diagnosis Date Arthritis Depression High cholesterol Hypertension Past Surgical History: Procedure Laterality Date SHOULDER SURGERY Bilateral States both rotator and scope 15 years ago History reviewed. No pertinent family history. Tobacco Use History[1] Allergies: Hydrocodone-acetaminophen All of the information has been reviewed at today's visit and modified if necessary. Home Medications: Current Medications[2] Physical Exam: BP 128/89 (BP Location: Right arm, Patient Position: Sitting, BP Cuff Size: Adult) Pulse 73 Ht 5' 10 Wt 98.2 kg (216 lb 8 oz) SpO2 96% BMI 31.06 kg/m Constitutional: Well appearing male, no acute distress Head: Normocephalic and atraumatic. Eyes: Conjunctivae are normal, no scleral icterus, no corneal arcus Neck: No acanthosis nigricans, no elevated jugular venous distension, no hepatojugular reflux Cardiovascular: Regular rate and rhythm, no murmurs appreciated on today's exam, normal S1 and S2, no rubs or gallops, PMI is midline Pulses: +2 dorsalis pedis pulses bilaterally Musculoskeletal: Normal range of motion. No cyanosis. No peripheral Edema Neurological: AOx3, moving all extremities normally Skin: Skin is warm and dry, normal hair pattern Psychiatric: Normal mood and affect, appropriate conversation Cardiovascular Studies: December 11, 2024 normal sinus rhythm Labs: Lab Results Component Value Date GLUCOSE 93 12/11/2024 CALCIUM 10.0 12/11/2024 NA 140 12/11/2024 K 3.6 12/11/2024 CL 101 12/11/2024 BUN 33 (H) 12/11/2024 CREATININE 1.24 12/11/2024 No results found for: ALT, AST, GGT, ALKPHOS, BILITOT Lab Results Component Value Date WBC 7.26 12/11/2024 HGB 13.8 12/11/2024 HCT 42.0 12/11/2024 MCV 100.5 (H) 12/11/2024 PLT 254 12/11/2024 RBC 4.18 (L) 12/11/2024 No results found for: CHOL, LDLCALC, LDLDIRECT, TRIG, HDL No results found for: HGBA1C No results found for: ALT, AST, GGT, ALKPHOS, BILITOT The ASCVD Risk score (Cm MCLEOD, et al., 2019) failed to calculate for the following reasons: The valid total cholesterol range is 130 to 320 mg/dL [1] Social History Tobacco Use Smoking Status Never Smokeless Tobacco Never [2] Current Outpatient Medications: aspirin 81 MG EC tablet, Take 1 (one) tablet (81 mg total) by mouth daily ., Disp: , Rfl: glucosamine/chondr rai A sod (OSTEO BI-FLEX ORAL), Take by mouth ., Disp: , Rfl: losartan-hydrochlorothiazide (HYZAAR) 100-25 mg per tablet, Take 1 (one) tablet by mouth daily ., Disp: , Rfl: magnesium oxide-herbal drugs (Beet Root-Magnesium) 150 mg Tab, Take by mouth ., Disp: , Rfl: multivitamin (THERAGRAN) per tablet, Take 1 (one) tablet by mouth daily ., Disp: , Rfl: omega-3 fatty acids/fish oil (fish oil-omega-3 fatty acids) 300-1,000 mg capsule, Take 2 (two) capsules by mouth daily ., Disp: , Rfl: propranoloL (INDERAL LA) 120 MG 24 hr capsule, Take 1 (one) capsule (120 mg total) by mouth daily ., Disp: , Rfl: rosuvast (more content not included)... [facility] 12-15-2024 Instructions Mik Forbes MA - 12/15/2024 8:49 AM EDT How to Contact your Care Team: Provider: Dr. Sammie Storey MD Clinic RN: Andrew Loza RN BSN Clinic MA: DIONE Cole Testing Ordered: none Medication Changes: none Lab Work Ordered: none Referrals: none REFILLS: When in need for refills please call your care team or the office at [phone]. Please include medication name, pharmacy name, and specify 30-day or 90-day supply. Please check with your pharmacy within 24 hours of request for your refill. You must follow up as directed to continue current refills. Thank you! documented in this encounter [facility] 12-12-2024 History of Presen t illness Narrative [facility] mail [facility] stating that there are no [facility] excellence facilities available in the area and to add this information to the pre certification REF # [id number] documented in this encounter [facility] 12-11-2024 Consult note Formatting of th is note might be different from the original. Date: 12/11/2024 Time: 3:36 PM Patient Name: Bisi Ford Date of : 1965 Reason for Consult: Discharge Plan Discussion: Met with Bisi Ford during [place] on 12/11/2024. The patient is scheduled to have right Hip replacement surgery with Dr Cervantes on 12/31/24 . Bisi Ford lives alone in a 1 story home with 1 steps to enter. He will be staying at his siter Emili's home will assist the patient after surgery. The bedroom is on the First and bathroom is on the First floor. The laundry is in the basement. The bathroom has a shower/tub combination with no grab bar or seat.The commode is standard height. The patient is not anticipated to need or receive any services on discharge. The patient will need a wheeled walker after surgery and requested it be provided by [facility] An order will be placed. Verified Bisi Ford address and phone number. Bisi Ford feels safe at home. Bisi Ford does have prescription coverage by [employer] and denies any financial concerns. Discharge Plan: Plan A: Home Plan B: Home Transportation: N/A Assessment and Background Information: Family aware of the patient's advance care planning wishes:: Yes Income Source: Employed Income/Expense Information: Income meets expenses Medication adherence problem:: No History of falls in last 6 months:: No Do you have any cultural/spiritual connections or beliefs that would impact how we deliver your care?: No Chronic pain:: (!) Yes Advance Directives: Advance Directive: Patient does not have advance directive, would like information (Packet given , educated and encouraged to complete) Patient Support: Does Patient have a PCP?: Yes Living Arrangements: Alone Type of Residence: Private residence Support Systems: Family members Current Home Equipment: None Caregiver Assessment: SDOH:denies concerns [facility] 12-11-2024 Consult note Formatting of th is note might be different from the original. Date: 12/11/2024 Time: 3:36 PM Patient Name: Bisi Ford Date of : 1965 Reason for Consult: Discharge Plan Discussion: Met with Bisi Ford during [place] on 12/11/2024. The patient is scheduled to have right Hip replacement surgery with Dr Cervantes on 12/31/24 . Bisi Ford lives alone in a 1 story home with 1 steps to enter. He will be staying at his siter Emili's home will assist the patient after surgery. The bedroom is on the First and bathroom is on the First floor. The laundry is in the basement. The bathroom has a shower/tub combination with no grab bar or seat.The commode is standard height. The patient is not anticipated to need or receive any services on discharge. The patient will need a wheeled walker after surgery and requested it be provided by [facility] An order will be placed. Verified Bisi Ford address and phone number. Bisi Ford feels safe at home. Bisi Ford does have prescription coverage by [employer] and denies any financial concerns. Discharge Plan: Plan A: Home Plan B: Home Transportation: N/A Assessment and Background Information: Family aware of the patient's advance care planning wishes:: Yes Income Source: Employed Income/Expense Information: Income meets expenses Medication adherence problem:: No History of falls in last 6 months:: No Do you have any cultural/spiritual connections or beliefs that would impact how we deliver your care?: No Chronic pain:: (!) Yes Advance Directives: Advance Directive: Patient does not have advance directive, would like information (Packet given , educated and encouraged to complete) Patient Support: Does Patient have a PCP?: Yes Living Arrangements: Alone Type of Residence: Private residence Support Systems: Family members Current Home Equipment: None Caregiver Assessment: SDOH:denies concerns documented in this encounter [facility] 12-11-2024 Progress note Formatting of t his note might be different from the original. 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 12-11-2024 Miscellaneous Notes Patient established goals at [facility] Short term goal: Take walks longterm goal: walks/work out/golf Pain goal: 8/10 Presurgical medication instructions reviewed by Sylvie Johnson CNP. Preoperative Medication Instructions In preparation for surgery please continue all of your current medications with the following changes: Active Home Medications Medication Sig Take Last Dose On Take Morning of Surgery Comment(s) losartan-hydrochlorothiazide (HYZAAR) 100-25 mg per tablet nabumetone (RELAFEN) 750 MG tablet Take 1 (one) tablet (750 mg total) by mouth 2 (two) times a day . omega-3 fatty acids/fish oil (fish oil-omega-3 fatty acids) 300-1,000 mg capsule Take 2 (two) capsules by mouth daily . propranoloL (INDERAL LA) 120 MG 24 hr capsule rosuvastatin (CRESTOR) 10 MG tablet STOP ( medications that contain aspirin, such as Erinn Fairfield, Pepto-Bismol, Anacin), antiinflammatory medications such as Advil, Motrin, Ibuprofen, Naproxen, Aleve, Erinn Fairfield, Pepto-Bismol, Anacin, Diclofenac, Voltaren, Daypro, Etodolac, Ketoprofen, Piroxicam, Relafen, Nabumetone, etc. Also discontinue Vitamin C, Vitamin E, [place]-3 Fatty Acid, Fish Oil or Lovaza, and all herbal medications DIRECTED BY SURGEON. Tylenol (acetaminophen) is acceptable(unless you have an allergy to this medication ), but be careful to follow the label directions and do not use with other pain medications. On the morning of surgery, with as little water as possible, ONLY take the medications listed above in the column Take the morning of surgery. If you are using Eye Drops or Inhalers, please bring them to the hospital. Patient Instructions for [facility]: Prior to surgery: Surgeon's office will contact you with the scheduled time of your surgery. You may use the [employer] parking available at the Main Entrance One family member may accompany you back into the Pre-Op Area. Do not eat or drink anything after midnight or as directed, including gum, mints, and cough drops. No smoking after midnight. No chewing tobacco after midnight. No alcohol 24 hours prior to your surgery. Please take any medications you have been instructed to take the morning of your surgery with small sips of water. Please be sure to wear comfortable, appropriate clothing. Please remove all jewelry and piercing's, including wedding rings. Leave all valuable items at home. Shower using anti-bacterial soap or as advised by your Surgeon's office Do not apply any makeup or lotions. Remove all nail russian for surgeries involving extremities. Please remember to bring both your insurance card and a photo ID with you on the day of surgery. After your surgery: If you are having outpatient surgery - you must have a licensed water truck driver to take you home. The expectation is that this water truck driver will remain at the hospital for the duration of your procedure. You are advised to have a family member with you for at least 24 hours after being under Anesthesia. If you have sleep apnea and have a CPAP/BIPAP mask, please bring it with you the day of surgery.If you have sleep apnea and have a CPAP/BIPAP mask, please bring it with you the day of surgery. Pt does not report any of the following: Ascites Fluid restriction: CHF, ESRD, Stewart's, Insulin pump for blood glucose control difficulty swallowing Neurological disease NPO due to alternative nutrition or IV nutrition Achalasia Severe gastroparesis Hiatal Hernia Severe GERD Partial or Total gastrectomy Gastric resection History of whipple procedure requiring jejunostomy tube placement Pt is a candidate for carb loading drink process. 3-8oz boost breeze given with instructions documented in this encounter [facility] 12-11-2024 History of Presen t illness Narrative Patient completed the Home Safety Assessment on date of [place], with all questions answered. A copy of the Home Safety Assessment and surveys were provided. Cosigned by Niika Rhodes PT at 12/11/2024 9:31 AM EDT documented in this encounter [facility] 12-11-2024 Progress note Formatting of t his note might be different from the original. Presurgical medication instructions reviewed by Sylvie Johnson CNP. [facility] 12-11-2024 Instructions Nova Johnson RN - 12/11/2024 7:37 AM EDT Preoperative Medication Instructions In preparation for surgery please continue all of your current medications with the following changes: Active Home Medications Medication Sig Take Last Dose On Take Morning of Surgery Comment(s) aspirin 81 MG EC tablet Take 1 (one) tablet (81 mg total) by mouth daily . Discuss with Dr. Cervantes if or when to stop prior to surgery losartan-hydrochlorothiazide (HYZAAR) 100-25 mg per tablet Take the day before surgery Do NOT take the day of surgery magnesium oxide-herbal drugs (Beet Root-Magnesium) 150 mg Tab Take by mouth . Stop 1 week prior to surgery multivitamin (THERAGRAN) per tablet Take 1 (one) tablet by mouth daily . Stop 1 week prior to surgery nabumetone (RELAFEN) 750 MG tablet Take 1 (one) tablet (750 mg total) by mouth 2 (two) times a day . Stop 1 week prior to surgery omega-3 fatty acids/fish oil (fish oil-omega-3 fatty acids) 300-1,000 mg capsule Take 2 (two) capsules by mouth daily . Stop 1 week prior to surgery propranoloL (INDERAL LA) 120 MG 24 hr capsule Take the morning of surgery rosuvastatin (CRESTOR) 10 MG tablet Take by mouth daily . Take the morning of surgery STOP antiinflammatory medications such as Advil, Motrin, Ibuprofen, Naproxen, Aleve, Erinn Fairfield, Pepto-Bismol, Anacin, Diclofenac, Voltaren, Daypro, Etodolac, Ketoprofen, Piroxicam, Relafen, Nabumetone, etc. Also discontinue Vitamin C, Vitamin E, [place]-3 Fatty Acid, Fish Oil or Lovaza, and all herbal medications DIRECTED BY SURGEON. Tylenol (acetaminophen) is acceptable(unless you have an allergy to this medication ), but be careful to follow the label directions and do not use with other pain medications. If you are using Eye Drops or Inhalers, please bring them to the hospital. Patient Instructions for [facility]: Prior to surgery: Surgeon's office will contact you with the scheduled time of your surgery. You may use the [employer] parking available at the Main Entrance One family member may accompany you back into the Pre-Op Area. Do not eat or drink anything after midnight or as directed, including gum, mints, and cough drops. Unless you were instructed and given Boost drink instructions. No smoking after midnight. No chewing tobacco after midnight. No alcohol 24 hours prior to your surgery. Please take any medications you have been instructed to take the morning of your surgery with small sips of water. Please be sure to wear comfortable, appropriate clothing. Please remove all jewelry and piercing's, including wedding rings. Leave all valuable items at home. Shower using anti-bacterial soap or as advised by your Surgeon's office Do not apply any makeup or lotions. Remove all nail russian for surgeries involving extremities. Please remember to bring both your insurance card and a photo ID with you on the day of surgery. After your surgery: If you are having outpatient surgery - you must have a licensed water truck driver to take you home. The expectation is that this water truck driver will remain at the hospital for the duration of your procedure. You are advised to have a family member with you for at least 24 hours after being under Anesthesia. If you have sleep apnea and have a CPAP/BIPAP mask, please bring it with you the day of surgery. documented in this encounter [facility] 12-11-2024 Instructions Formatting of th is note is different from the original. Preoperative Medication Instructions In preparation for surgery please continue all of your current medications with the following changes: Active Home Medications Medication Sig Take Last Dose On Take Morning of Surgery Comment(s) losartan-hydrochlorothiazide (HYZAAR) 100-25 mg per tablet nabumetone (RELAFEN) 750 MG tablet Take 1 (one) tablet (750 mg total) by mouth 2 (two) times a day . omega-3 fatty acids/fish oil (fish oil-omega-3 fatty acids) 300-1,000 mg capsule Take 2 (two) capsules by mouth daily . propranoloL (INDERAL LA) 120 MG 24 hr capsule rosuvastatin (CRESTOR) 10 MG tablet STOP ( medications that contain aspirin, such as Erinn Fairfield, Pepto-Bismol, Anacin), antiinflammatory medications such as Advil, Motrin, Ibuprofen, Naproxen, Aleve, Erinn [place], Pepto-Bismol, Anacin, Diclofenac, Voltaren, Daypro, Etodolac, Ketoprofen, Piroxicam, Relafen, Nabumetone, etc. Also discontinue Vitamin C, Vitamin E, [place]-3 Fatty Acid, Fish Oil or Lovaza, and all herbal medications DIRECTED BY SURGEON. Tylenol (acetaminophen) is acceptable(unless you have an allergy to this medication ), but be careful to follow the label directions and do not use with other pain medications. On the morning of surgery, with as little water as possible, ONLY take the medications listed above in the column Take the morning of surgery. If you are using Eye Drops or Inhalers, please bring them to the hospital. Patient Instructions for [facility]: Prior to surgery: Surgeon's office will contact you with the scheduled time of your surgery. You may use the [employer] parking available at the Main Entrance One family member may accompany you back into the Pre-Op Area. Do not eat or drink anything after midnight or as directed, including gum, mints, and cough drops. No smoking after midnight. No chewing tobacco after midnight. No alcohol 24 hours prior to your surgery. Please take any medications you have been instructed to take the morning of your surgery with small sips of water. Please be sure to wear comfortable, appropriate clothing. Please remove all jewelry and piercing's, including wedding rings. Leave all valuable items at home. Shower using anti-bacterial soap or as advised by your Surgeon's office Do not apply any makeup or lotions. Remove all nail russian for surgeries involving extremities. Please remember to bring both your insurance card and a photo ID with you on the day of surgery. After your surgery: If you are having outpatient surgery - you must have a licensed water truck driver to take you home. The expectation is that this water truck driver will remain at the hospital for the duration of your procedure. You are advised to have a family member with you for at least 24 hours after being under Anesthesia. If you have sleep apnea and have a CPAP/BIPAP mask, please bring it with you the day of surgery.If you have sleep apnea and have a CPAP/BIPAP mask, please bring it with you the day of surgery. Pt does not report any of the following: Ascites Fluid restriction: CHF, ESRD, Saji's, Insulin pump for blood glucose control difficulty swallowing Neurological disease NPO due to alternative nutrition or IV nutrition Achalasia Severe gastroparesis Hiatal Hernia Severe GERD Partial or Total gastrectomy Gastric resection History of whipple procedure requiring jejunostomy tube placement Pt is a candidate for carb loading drink process. 3-8oz boost breeze given with instructions [facility] 11-11-2024 History of Presen t illness Narrative Patient stopped by asking for narcotics. Advised office policy we do not send in narcotics in before surgery. Advised he has an antiinflammatory and he will need to use that and OTC until surgery. documented in this encounter [facility] 08-28-2024 Note [facility] [address] [facility] [address] [facility] [id number] Chief Complaint Patient presents with Right Hip - Follow-up Bisi Ford returns to the office today for follow-up on his right hip. He has completed a course of outpatient physical therapy on that right hip. If you recall, I saw him about a month ago for right hip pain. Imaging showed significant arthritis of the right hip. He went ahead and tried an intra-articular injection into the right hip joint under fluoroscopy. He reports some decent relief with that. The physical therapy, he does not believe that he is significantly better after completing it. He denies any worsening of the right hip. He still will continue to take OTC pain medications as needed. He has been able to get back into his everyday activities, for the most part. He does find that he continues to baby that right hip. The patient's past medical history, surgical history, social history, family history, medications and allergies were reviewed with the patient today and are available in the chart for further review. Allergies[1] Current Medications[2] Past Medical History: Diagnosis Date Depression High cholesterol Hypertension Past Surgical History: Procedure Laterality Date SHOULDER SURGERY Bilateral States both rotator and scope Social History[3] ROS: Review of Systems Musculoskeletal: Positive for arthralgias and myalgias. Negative for gait problem and joint swelling. Imaging: No new imaging at today's visit, reviewed from prior Assessment/Plan: We discussed continued treatment options for the right hip arthritis. At this time he has improved with the aid of an injection. He is concerned that once the injection wears off, he will have that same pain again. We had briefly discussed surgical intervention if conservative measures failed. I did explain that he would then benefit from a right total hip replacement. At this time, he wishes to proceed with that surgery this coming fall. We did discuss that he is able to receive these injections every 3 months if they continue to provide him adequate pain relief. However, given these are in a hospital setting, they can be quite costly. He still wishes to proceed with a Dereck robotic assisted right total hip replacement by Dr. Cervantes. Prior to hissurgery, a CT scan will be ordered and required for further diagnostic evaluation as well as surgical planning. I did explain that he would need to wait 3 months from the date of his last injection which would be the anytime after October 31 that he is able to move forward with hip replacement surgery. The office will contact him to get his surgery scheduled. If he decides that he would like to try another hip injection, I am happy to see him back and order that for him. [1] Allergies Allergen Reactions Egg Unknown Hydrocodone-Acetaminophen Unknown [2] Current Outpatient Medications: losartan-hydrochlorothiazide (HYZAAR) 100-25 mg per tablet, , Disp: , Rfl: nabumetone (RELAFEN) 750 MG tablet, Take 1 (one) tablet (750 mg total) by mouth 2 (two) times a day ., Disp: 60 tablet, Rfl: 11 omega-3 fatty acids/fish oil (fish oil-omega-3 fatty acids) 300-1,000 mg capsule, Take 2 (two) capsules by mouth daily ., Disp: , Rfl: propranoloL (INDERAL LA) 120 MG 24 hr capsule, , Disp: , Rfl: rosuvastatin (CRESTOR) 10 MG tablet, , Disp: , Rfl: [3] Social History Socioeconomic History Marital status: Tobacco Use Smoking status: Never Smokeless tobacco: Never Substance and Sexual Activity Alcohol use: Yes Drug use: Not Currently AUTHENTICATED BY YVETTE GARRISON, ON 09/03/2024 16:33:47 [facility] 08-28-2024 History of Presen t illness Narrative [facility] [address] [facility] [address] [facility] [id number] Chief Complaint Patient presents with Right Hip - Follow-up Bisi Ford returns to the office today for follow-up on his right hip. He has completed a course of outpatient physical therapy on that right hip. If you recall, I saw him about a month ago for right hip pain. Imaging showed significant arthritis of the right hip. He went ahead and tried an intra-articular injection into the right hip joint under fluoroscopy. He reports some decent relief with that. The physical therapy, he does not believe that he is significantly better after completing it. He denies any worsening of the right hip. He still will continue to take OTC pain medications as needed. He has been able to get back into his everyday activities, for the most part. He does find that he continues to baby that right hip. The patient's past medical history, surgical history, social history, family history, medications and allergies were reviewed with the patient today and are available in the chart for further review. Allergies[1] Current Medications[2] Past Medical History: Diagnosis Date Depression High cholesterol Hypertension Past Surgical History: Procedure Laterality Date SHOULDER SURGERY Bilateral States both rotator and scope Social History[3] ROS: Review of Systems Musculoskeletal: Positive for arthralgias and myalgias. Negative for gait problem and joint swelling. Imaging: No new imaging at today's visit, reviewed from prior Assessment/Plan: We discussed continued treatment options for the right hip arthritis. At this time he has improved with the aid of an injection. He is concerned that once the injection wears off, he will have that same pain again. We had briefly discussed surgical intervention if conservative measures failed. I did explain that he would then benefit from a right total hip replacement. At this time, he wishes to proceed with that surgery this coming fall. We did discuss that he is able to receive these injections every 3 months if they continue to provide him adequate pain relief. However, given these are in a hospital setting, they can be quite costly. He still wishes to proceed with a Dereck robotic assisted right total hip replacement by Dr. Cervantes. Prior to his surgery, a CT scan will be ordered and required for further diagnostic evaluation as well as surgical planning. I did explain that he would need to wait 3 months from the date of his last injection which would be the anytime after October 31 that he is able to move forward with hip replacement surgery. The office will contact him to get his surgery scheduled. If he decides that he would like to try another hip injection, I am happy to see him back and order that for him. [1] Allergies Allergen Reactions Egg Unknown Hydrocodone-Acetaminophen Unknown [2] Current Outpatient Medications: losartan-hydrochlorothiazide (HYZAAR) 100-25 mg per tablet, , Disp: , Rfl: nabumetone (RELAFEN) 750 MG tablet, Take 1 (one) tablet (750 mg total) by mouth 2 (two) times a day ., Disp: 60 tablet, Rfl: 11 omega-3 fatty acids/fish oil (fish oil-omega-3 fatty acids) 300-1,000 mg capsule, Take 2 (two) capsules by mouth daily ., Disp: , Rfl: propranoloL (INDERAL LA) 120 MG 24 hr capsule, , Disp: , Rfl: rosuvastatin (CRESTOR) 10 MG tablet, , Disp: , Rfl: [3] Social History Socioeconomic History Marital status: Tobacco Use Smoking status: Never Smokeless tobacco: Never Substance and Sexual Activity Alcohol use: Yes Drug use: Not Currently documented in this encounter [facility] 08-25-2024 History of Presen t illness Narrative Followed up w patient via phone. Advised he needs to make a PT follow up appt. He understands. documented in this encounter [facility] 08-07-2024 History of Presen t illness Narrative Images from the original note were not included. [facility] DAILY TREATMENT NOTE Today's Date 08/07/2024 Patient Name: Bisi Ford Date of : 1965 Current Visit #: 6 Authorized Visits: 7 Case Name: Right Hip OA History: Pre-Treatment Pain Scale: 5 Symptoms: gradually improved Functional Diagnosis: 1. Primary osteoarthritis of right hip Clinical Information: Subjective: Pt reports avg pain today. Pt compliant with HEP and has been able to do some golfing. Objective FOTO Score - 08/07/24 1304 OTHER FOTO Score 41 Hip Right Hip Range of Motion: Flexion Active: 85 Extension Active: 10 Abduction Active: 32 Adduction Active: 28 Muscle Strength: Flexion: 4+ Extension: 5 Abduction: 5 Adduction: 5 IR: 4+ ER: 4+ Treatments: Physical Therapy Exercise Log - 08/07/24 1257 OTHER Precautions/Contraindications Supervising PT: Ricardo - Right THR Prehab Notes Visit 6: 1:00 - [employer] Therapeutic Exercise (76521) Intervention SciFit - x5 min L4 Parameters LTR on red st helenian ball - 5 sec x10 Intervention LA roll on red st helenian ball 15x3 Parameters bridges on red st helenian ball - x10 Intervention Hip abd, add - 5 sec x10 ball, GTB Intervention standing hip flexor stretch on box / standing adductor stretch 3x20 each Parameters TKE w/ iqbal tube 15x5 Intervention standing hip ext, abd L3 - x10 Bilat Parameters lat. ambulation 15ft x2 Intervention BOSU step-ups x10 Parameters shuttle squats 75# x10 - NT Manual Therapy ([id number]) Intervention lat. distraction w/ belt x5 mins total - NT PT Treatment Times Therex Total Time -- 1:00 - Goals: Physical Therapy Ortho Goals: MOBILITY: Patient will be able to ambulate for 30 minutes in community without difficulty in 4 weeks. MOBILITY: Patient will be able to ascend/descend stairs reciprocally without difficulty in 4 weeks. CHANGING MAINTAINING POSITON: Patient will be able to stand for 30 minutes to complete ADL's and IADL's without difficulty in 4 weeks CHANGING MAINTAINING POSITON: Patient will be able to change position in bed without pain or difficulty in 4 weeks IMPAIRMENT: Patient will demonstrate improved postural awareness in PT sessions to facilitate mechanical alignment and function in 3 weeks. IMPAIRMENT: Improve pain from 8/10 to <3/10 during prolonged standing, walking and lifting/carrying in 4 weeks IMPAIRMENT: Improve AROM of Right Hip Flexion from 80 degrees to at least 90 degrees in 4 weeks. OTHER: Patient will increase FOTO score from 47 to at least 60 to show MDC/MCII and expected functional outcome in 4 weeks. OTHER: Patient will be able to properly demonstrate independence with HEP in 2 weeks. Patient Education: Quality of movement with patient demonstrated understanding. Post-Treatment Pain Scale: 5 Assessment: Patient had an expected response to treatment. Skilled Intervention demonstrated by modifications of treatment per exercise log including increased load and safety interventions per exercise log. Progress towards goals as expected. Plan for Next Visit: Discharge Misael Bonilla PTA STATE LICENSE, [id number] documented in this encounter [facility] 08-05-2024 History of Presen t illness Narrative Images from the original note were not included. [facility] DAILY TREATMENT NOTE Today's Date 08/05/2024 Patient Name: Bisi Ford Date of : 1965 Current Visit #: 5 Authorized Visits: 7 Case Name: Right Hip OA History: Pre-Treatment Pain Scale: 4 Symptoms: fluctuating Functional Diagnosis: 1. Primary osteoarthritis of right hip Clinical Information: Subjective: Pt reports mild pain upon arrival. He has been feeling a little better since receiving an injection last . He golfed a couple rounds over the weekend rounds over the weekend with gradual progression of pain. Pain had resolved by the next morning Objective Treatments: Physical Therapy Exercise Log - 08/05/24 1304 OTHER Precautions/Contraindications Supervising PT: Ricardo - Right THR Prehab Notes Visit 5: 1:03 - 1:42 [employer] Therapeutic Exercise ([id number]) Intervention SciFit - x5 min L4 Parameters LTR on red st helenian ball - 5 sec x10 Intervention LA roll on red st helenian ball 15x3 Parameters bridges on red st helenian ball - x10 Intervention Hip abd, add - 5 sec x10 ball, GTB Intervention standing hip flexor stretch on box / standing adductor stretch 3x20 each Parameters TKE w/ iqbal tube 15x5 Intervention standing hip ext, abd L3 - x10 Bilat Parameters lat. ambulation 15ft x2 Intervention BOSU step-ups x10 Parameters shuttle squats 75# x10 - NT Manual Therapy ([id number]) Intervention lat. distraction w/ belt x5 mins total - NT PT Treatment Times Therex Total Time 39 Direct Treatment Time 39 Total Treatment Time 39 Goals: Physical Therapy Ortho Goals: MOBILITY: Patient will be able to ambulate for 30 minutes in community without difficulty in 4 weeks. MOBILITY: Patient will be able to ascend/descend stairs reciprocally without difficulty in 4 weeks. CHANGING MAINTAINING POSITON: Patient will be able to stand for 30 minutes to complete ADL's and IADL's without difficulty in 4 weeks CHANGING MAINTAINING POSITON: Patient will be able to change position in bed without pain or difficulty in 4 weeks IMPAIRMENT: Patient will demonstrate improved postural awareness in PT sessions to facilitate mechanical alignment and function in 3 weeks. IMPAIRMENT: Improve pain from 8/10 to <3/10 during prolonged standing, walking and lifting/carrying in 4 weeks IMPAIRMENT: Improve AROM of Right Hip Flexion from 80 degrees to at least 90 degrees in 4 weeks. OTHER: Patient will increase FOTO score from 47 to at least 60 to show MDC/MCII and expected functional outcome in 4 weeks. OTHER: Patient will be able to properly demonstrate independence with HEP in 2 weeks. Patient Education: Verbal HEP and Diagnosis and recovery specific education with patient verbalized understanding. Post-Treatment Pain Scale: 4 Assessment: Patient had an expected response to treatment. Skilled Intervention demonstrated by modifications of treatment per exercise log including increased intensity and assessment of patient's response and safety interventions per exercise log. Plan for Next Visit: Discharge Ximena Camara PT State License, [id number] documented in this encounter [facility] 07-29-2024 History of Presen t illness Narrative Images from the original note were not included. [facility]IENT REH[facility]IL[facility] DAILY TREATMENT NOTE Today's Date 07/29/2024 Patient Name: Bisi Ford Date of : 1965 Current Visit #: 4 Authorized Visits: 7 Case Name: Right Hip OA History: Pre-Treatment Pain Scale: 7 Symptoms: rapidly worsened Functional Diagnosis: 1. Primary osteoarthritis of right hip Clinical Information: Subjective: Pt reports increased pain today and contributes his sx to being on his feet a lot and more active yesterday. Objective Treatments: Physical Therapy Exercise Log - 07/29/24 1259 OTHER Precautions/Contraindications Supervising PT: Ricardo - Right THR Prehab Notes Visit 4: 1:00 - 1:40 [employer] Therapeutic Exercise (04015) Intervention SciFit - x5 min L4 Parameters LTR on red st helenian ball - 5 sec x10 Intervention LA roll on red st helenian ball 15x3 Parameters bridges on red st helenian ball - x10 Intervention Hip abd, add - 5 sec x10 ball, GTB Intervention standing hip flexor stretch on box / standing adductor stretch 3x20 each Parameters TKE w/ iqbal tube 15x5 Intervention standing hip ext, abd - x10 Bilat Parameters lat. ambulation 15ft x2 Intervention BOSU step-ups x10 - NT Parameters shuttle squats 75# x10 - NT Manual Therapy ([id number]) Intervention lat. distraction w/ belt x5 mins total PT Treatment Times Therex Total Time 35 1:00 - 1:35 Manual Therapy Total Time 5 1:35 - 1:40 Direct Treatment Time 40 Total Treatment Time 40 Goals: Physical Therapy Ortho Goals: MOBILITY: Patient will be able to ambulate for 30 minutes in community without difficulty in 4 weeks. MOBILITY: Patient will be able to ascend/descend stairs reciprocally without difficulty in 4 weeks. CHANGING MAINTAINING POSITON: Patient will be able to stand for 30 minutes to complete ADL's and IADL's without difficulty in 4 weeks CHANGING MAINTAINING POSITON: Patient will be able to change position in bed without pain or difficulty in 4 weeks IMPAIRMENT: Patient will demonstrate improved postural awareness in PT sessions to facilitate mechanical alignment and function in 3 weeks. IMPAIRMENT: Improve pain from 8/10 to <3/10 during prolonged standing, walking and lifting/carrying in 4 weeks IMPAIRMENT: Improve AROM of Right Hip Flexion from 80 degrees to at least 90 degrees in 4 weeks. OTHER: Patient will increase FOTO score from 47 to at least 60 to show MDC/MCII and expected functional outcome in 4 weeks. OTHER: Patient will be able to properly demonstrate independence with HEP in 2 weeks. Patient Education: HEP Adherence and Diagnosis and recovery specific education with patient verbalized understanding. Post-Treatment Pain Scale: 5 Assessment: Patient had an expected response to treatment. Skilled Intervention demonstrated by modifications of treatment per exercise log including decreased intensity and assessment of patient's response and safety interventions per exercise log. Progress towards goals unexpected due to higher than anticipated complexity. Plan for Next Visit: Treatment Visit with focus on core stability Ximena Camara PT State License, [id number] documented in this encounter [facility] 07-24-2024 History of Presen t illness Narrative Images from the original note were not included. [facility] OUTPATIENT REH[facility]ILITATION DAILY TREATMENT NOTE Today's Date 07/24/2024 Patient Name: Bisi Ford Date of : 1965 Current Visit #: Authorized Visits: Case Name: Right Hip OA History: Pre-Treatment Pain Scale: 3 Symptoms: fluctuating depending on activity Functional Diagnosis: 1. Primary osteoarthritis of right hip Clinical Information: Subjective: Pt reports mild pain upon arrival. He did have increased pain the morning following last session but sx gradually returned to baseline. Objective Treatments: Physical Therapy Exercise Log - 07/24/24 6921 OTHER Precautions/Contraindications Supervising PT: Ricardo - Right THR Prehab Notes Visit 3: 2:32 - 3:02 [employer] Therapeutic Exercise ([id number]) Intervention SciFit - x5 min L4 Parameters LTR on red st helenian ball - 5 sec x10 Intervention LA roll on red st helenian ball 15x3 Parameters bridges - x10 Intervention Hip abd, add - 5 sec x10 ball, GTB Intervention standing hip flexor stretch on box / standing adductor stretch 3x20 each Parameters TKE w/ iqbal tube 15x5 Intervention standing hip ext, abd - x10 Bilat Parameters lat. ambulation 15ft x2 Intervention BOSU step-ups x10 Parameters shuttle squats 75# x10 PT Treatment Times Therex Total Time 30 2:32 - 3:02 Direct Treatment Time 30 Total Treatment Time 30 Goals: Physical Therapy Ortho Goals: MOBILITY: Patient will be able to ambulate for 30 minutes in community without difficulty in 4 weeks. MOBILITY: Patient will be able to ascend/descend stairs reciprocally without difficulty in 4 weeks. CHANGING MAINTAINING POSITON: Patient will be able to stand for 30 minutes to complete ADL's and IADL's without difficulty in 4 weeks CHANGING MAINTAINING POSITON: Patient will be able to change position in bed without pain or difficulty in 4 weeks IMPAIRMENT: Patient will demonstrate improved postural awareness in PT sessions to facilitate mechanical alignment and function in 3 weeks. IMPAIRMENT: Improve pain from 8/10 to <3/10 during prolonged standing, walking and lifting/carrying in 4 weeks IMPAIRMENT: Improve AROM of Right Hip Flexion from 80 degrees to at least 90 degrees in 4 weeks. OTHER: Patient will increase FOTO score from 47 to at least 60 to show MDC/MCII and expected functional outcome in 4 weeks. OTHER: Patient will be able to properly demonstrate independence with HEP in 2 weeks. Patient Education: Verbal HEP and Diagnosis and recovery specific education with patient verbalized understanding. Post-Treatment Pain Scale: 5 Assessment: Patient had an unexpected response to treatment due to increased pain. Skilled Intervention demonstrated by modifications of treatment per exercise log including increased volume and safety interventions per exercise log. Progress towards goals as expected. Plan for Next Visit: Treatment Visit with focus on hip strength and core stability Ximena Camara PT State License, [id number] documented in this encounter [facility] 07-22-2024 History of Presen t illness Narrative Images from the original note were not included. [facility] OUTPATIENT REHABIL[facility]ATION DAILY TREATMENT NOTE Today's Date 07/22/2024 Patient Name: Bisi Ford Date of : 1965 Current Visit #: 3 Authorized Visits: 7 Case Name: Right Hip OA History: Pre-Treatment Pain Scale: 4 Symptoms: fluctuating Functional Diagnosis: 1. Primary osteoarthritis of right hip Clinical Information: Subjective: Pt reports ongoing pain, worse with prolonged activity. He had increased pain following last session but sx returned to baseline by late morning the next day Objective Treatments: Physical Therapy Exercise Log - 07/22/24 1300 OTHER Precautions/Contraindications Supervising PT: Ricardo - Right THR Prehab Notes Visit 2: 1:00 - 1:39 [employer] Therapeutic Exercise ([id number]) Intervention SciFit - x5 min L4 Parameters LTR on red st helenian ball - 5 sec x10 Intervention LA roll on red st helenian ball 15x3 Parameters bridges - x10 Intervention Hip abd, add - 5 sec x10 ball, GTB Parameters -- Intervention standing hip flexor stretch on box / standing adductor stretch 3x20 each Parameters TKE w/ iqbal tube 15x5 Intervention standing hip ext, abd - x10 Bilat Parameters lat. ambulation 15ft x2 PT Treatment Times Therex Total Time 39 1:00 - 1:39 Direct Treatment Time 39 Total Treatment Time 39 Goals: Physical Therapy Ortho Goals: MOBILITY: Patient will be able to ambulate for 30 minutes in community without difficulty in 4 weeks. MOBILITY: Patient will be able to ascend/descend stairs reciprocally without difficulty in 4 weeks. CHANGING MAINTAINING POSITON: Patient will be able to stand for 30 minutes to complete ADL's and IADL's without difficulty in 4 weeks CHANGING MAINTAINING POSITON: Patient will be able to change position in bed without pain or difficulty in 4 weeks IMPAIRMENT: Patient will demonstrate improved postural awareness in PT sessions to facilitate mechanical alignment and function in 3 weeks. IMPAIRMENT: Improve pain from 8/10 to <3/10 during prolonged standing, walking and lifting/carrying in 4 weeks IMPAIRMENT: Improve AROM of Right Hip Flexion from 80 degrees to at least 90 degrees in 4 weeks. OTHER: Patient will increase FOTO score from 47 to at least 60 to show MDC/MCII and expected functional outcome in 4 weeks. OTHER: Patient will be able to properly demonstrate independence with HEP in 2 weeks. Patient Education: HEP Adherence and Diagnosis and recovery specific education with patient verbalized understanding. Post-Treatment Pain Scale: 5 Assessment: Patient had an expected response to treatment. Skilled Intervention demonstrated by modifications of treatment per exercise log including increased volume and safety interventions per exercise log. Progress towards goals unexpected due to higher than anticipated complexity. Plan for Next Visit: Treatment Visit with focus on LE strength and core stability Xiemna Camara PT State License, [id number] documented in this encounter [facility] 07-18-2024 History of Presen t illness Narrative Images from the original note were not included. [facility] OUTPATIENT REHABILITATION DAILY TREATMENT NOTE Today's Date 07/18/2024 Patient Name: Bisi Ford Date of : 1965 Current Visit #: 2 Authorized Visits: 7 Case Name: Right Hip OA History: Pre-Treatment Pain Scale: 5 Symptoms: stabilized Functional Diagnosis: 1. Primary osteoarthritis of right hip Clinical Information: Subjective: Pt reports low pain today and compliant with HEP and felt good after HEP. Pt reports increased pain with walking and squatting. Objective Treatments: Physical Therapy Exercise Log - 07/18/24 1259 OTHER Precautions/Contraindications Supervising PT: Ricardo - Right THR Prehab Notes Visit 1: : 1:00 - 1:40 Transphorm Therapeutic Exercise ([id number]) Intervention SciFit - x5 min L4 Parameters LTR - 5 sec x10 Intervention bent knee fall outs - 10 sec x5, Hip flexor stretch over side of table - 20 sec x3 Parameters supine heel slides for hip flexion ROM - x10 (no strap) Intervention quad sets w/ knee prop - 5 sec x10 Parameters bridges - x10 Intervention Hip abd, add - 5 sec x10 ball, GTB Parameters standing hip ext, abd - x10 Bilat PT Treatment Times Therex Total Time 40 1:00-1:40 Direct Treatment Time 40 Total Treatment Time 40 Goals: Physical Therapy Ortho Goals: MOBILITY: Patient will be able to ambulate for 30 minutes in community without difficulty in 4 weeks. MOBILITY: Patient will be able to ascend/descend stairs reciprocally without difficulty in 4 weeks. CHANGING MAINTAINING POSITON: Patient will be able to stand for 30 minutes to complete ADL's and IADL's without difficulty in 4 weeks CHANGING MAINTAINING POSITON: Patient will be able to change position in bed without pain or difficulty in 4 weeks IMPAIRMENT: Patient will demonstrate improved postural awareness in PT sessions to facilitate mechanical alignment and function in 3 weeks. IMPAIRMENT: Improve pain from 8/10 to <3/10 during prolonged standing, walking and lifting/carrying in 4 weeks IMPAIRMENT: Improve AROM of Right Hip Flexion from 80 degrees to at least 90 degrees in 4 weeks. OTHER: Patient will increase FOTO score from 47 to at least 60 to show MDC/MCII and expected functional outcome in 4 weeks. OTHER: Patient will be able to properly demonstrate independence with HEP in 2 weeks. Patient Education: Quality of movement with patient demonstrated understanding. Post-Treatment Pain Scale: 5 Assessment: Patient had an expected response to treatment. Skilled Intervention demonstrated by modifications of treatment per exercise log including increased load and safety interventions per exercise log. Progress towards goals as expected. Plan for Next Visit: Treatment Visit with focus on strengthening progressions Misael Bonilla PTA STATE LICENSE, [id number] documented in this encounter [facility] 07-08-2024 History of Presen t illness Narrative Patient will complete PT then follow up in office with Yvette. Patient understands if he has a hip injection under fluro that he has to wait 3 months before he can have surgery. documented in this encounter [facility] 06-17-2024 Note Bisi Ford 1965 CC: 59 y.o. is a he with right hip pain. Chief Complaint Patient presents with Right Hip - Pain . HPI: Hip Pain: Patient presents to the office today with complaints of right hip pain. This started approximately 1 year ago however the last 3 months have been increasingly worse. He is complaining of pain that radiates into the groin as well as some anterior thigh pain. He is also having some posterior buttock and low back pain. He denies any injury to the hip or the back. He has utilized OTC pain medications without any significant relief. He denies any numbness or tingling that radiates down the leg. He denies any numbness or tingling that radiates down the leg into the foot or the toes. He is having difficulty with simple everyday tasks such as getting in and out of a vehicle or lifting that right leg to get in and out of the bed. Bending over or picking the foot up to tie shoes or get socks on is also becoming increasingly difficult and painful. The patient's past medical history, surgical history, social history, family history, medications and allergies were reviewed with the patient today and are available in the chart for further review. PMH: Allergies[1] Current Medications[2] Past Medical History: Diagnosis Date Depression High cholesterol Hypertension Past Surgical History: Procedure Laterality Date SHOULDER SURGERY Bilateral States both rotator and scope Social History[3] ROS: Review of Systems Constitutional: Negative for activity change and fatigue. HENT: Negative for congestion, hearing loss and trouble swallowing. Eyes: Negative for visual disturbance. Respiratory: Negative for chest tightness and shortness of breath. Cardiovascular: Negative for chest pain and palpitations. Gastrointestinal: Negative for abdominal pain, diarrhea, nausea and vomiting. Endocrine: Negative for polydipsia, polyphagia and polyuria. Genitourinary: Negative for decreased urine volume, difficulty urinating and hematuria. Musculoskeletal: Positive for arthralgias, joint swelling and myalgias. Skin: Negative for color change, rash and wound. Allergic/Immunologic: Negative for immunocompromised state. Neurological: Negative for dizziness, weakness, light-headedness and numbness. Hematological: Does not bruise/bleed easily. Psychiatric/Behavioral: Negative for confusion and sleep disturbance. The patient is not nervous/anxious. PE: Physical Exam Constitutional: Appearance: He is well-developed. HENT: Head: Normocephalic. Eyes: Pupils: Pupils are equal, round, and reactive to light. Cardiovascular: Rate and Rhythm: Normal rate and regular rhythm. Pulmonary: Effort: Pulmonary effort is normal. Breath sounds: Normal breath sounds. Abdominal: General: Bowel sounds are normal. Palpations: Abdomen is soft. Musculoskeletal: General: Tenderness present. No swelling. Normal range of motion. Cervical back: Normal range of motion and neck supple. Skin: General: Skin is warm and dry. Neurological: Mental Status: He is alert and oriented to person, place, and time. ORTHO: Right Hip Exam Tenderness The patient is experiencing tenderness in the ischial tuberosity, anterior and posterior. Range of Motion External rotation: 20 Internal rotation: 10 Muscle Strength The patient has normal right hip strength. Tests HILARIA: positive Freya: negative Other Erythema: absent Scars: absent Sensation: normal Pulse: present Imaging: R Hip: No acute fracture or dislocation. Severe degenerative changes of the right hip. Lumbar: No acute fracture or dislocation. Moderate lower lumbar spondylopathy. Assessment/Plan: After examination and reviewing of the patient x-ray images, we discussed treatment options for the right hip. We discussed conservative measures versus surgical intervention. He would like to continue with conservative measures at this time. I am going to start him on oral prednisone then have him start a prescription strength anti-inflammatory. We also discussed cortisone injections into the hip joint. We also discussed surgical options. I did explain to the patient that if these conservative measures fail, that he would benefit from a right total hip replacement. The patient is not ready to discuss any type of surgery at this time therefore we will continue with conservative measures. I will see him back as needed. Diagnosis: Problem List Items Addressed This Visit None Visit Diagnoses Right hip pain Follow Up: [1] No Known Allergies [2] Current Outpatient Medications: losartan-hydrochlorothiazide (HYZAAR) 100-25 mg per tablet, , Disp: , Rfl: omega-3 fatty acids/fish oil (fish oil-omega-3 fatty acids) 300-1,000 mg capsule, Take 2 (two) capsules by mouth daily ., Disp: , Rfl: propranoloL (INDERAL LA) 120 MG 24 hr capsule, , Disp: , Rfl: rosuvastatin (CRESTOR) 10 MG tablet, , Disp: , (more content not included)... [facility] 06-17-2024 History of Presen t illness Narrative Bisi Ford 1965 CC: 59 y.o. is a he with right hip pain. Chief Complaint Patient presents with Right Hip - Pain . HPI: Hip Pain: Patient presents to the office today with complaints of right hip pain. This started approximately 1 year ago however the last 3 months have been increasingly worse. He is complaining of pain that radiates into the groin as well as some anterior thigh pain. He is also having some posterior buttock and low back pain. He denies any injury to the hip or the back. He has utilized OTC pain medications without any significant relief. He denies any numbness or tingling that radiates down the leg. He denies any numbness or tingling that radiates down the leg into the foot or the toes. He is having difficulty with simple everyday tasks such as getting in and out of a vehicle or lifting that right leg to get in and out of the bed. Bending over or picking the foot up to tie shoes or get socks on is also becoming increasingly difficult and painful. The patient's past medical history, surgical history, social history, family history, medications and allergies were reviewed with the patient today and are available in the chart for further review. PMH: Allergies[1] Current Medications[2] Past Medical History: Diagnosis Date Depression High cholesterol Hypertension Past Surgical History: Procedure Laterality Date SHOULDER SURGERY Bilateral States both rotator and scope Social History[3] ROS: Review of Systems Constitutional: Negative for activity change and fatigue. HENT: Negative for congestion, hearing loss and trouble swallowing. Eyes: Negative for visual disturbance. Respiratory: Negative for chest tightness and shortness of breath. Cardiovascular: Negative for chest pain and palpitations. Gastrointestinal: Negative for abdominal pain, diarrhea, nausea and vomiting. Endocrine: Negative for polydipsia, polyphagia and polyuria. Genitourinary: Negative for decreased urine volume, difficulty urinating and hematuria. Musculoskeletal: Positive for arthralgias, joint swelling and myalgias. Skin: Negative for color change, rash and wound. Allergic/Immunologic: Negative for immunocompromised state. Neurological: Negative for dizziness, weakness, light-headedness and numbness. Hematological: Does not bruise/bleed easily. Psychiatric/Behavioral: Negative for confusion and sleep disturbance. The patient is not nervous/anxious. PE: Physical Exam Constitutional: Appearance: He is well-developed. HENT: Head: Normocephalic. Eyes: Pupils: Pupils are equal, round, and reactive to light. Cardiovascular: Rate and Rhythm: Normal rate and regular rhythm. Pulmonary: Effort: Pulmonary effort is normal. Breath sounds: Normal breath sounds. Abdominal: General: Bowel sounds are normal. Palpations: Abdomen is soft. Musculoskeletal: General: Tenderness present. No swelling. Normal range of motion. Cervical back: Normal range of motion and neck supple. Skin: General: Skin is warm and dry. Neurological: Mental Status: He is alert and oriented to person, place, and time. ORTHO: Right Hip Exam Tenderness The patient is experiencing tenderness in the ischial tuberosity, anterior and posterior. Range of Motion External rotation: 20 Internal rotation: 10 Muscle Strength The patient has normal right hip strength. Tests HILARIA: positive Freya: negative Other Erythema: absent Scars: absent Sensation: normal Pulse: present Imaging: R Hip: No acute fracture or dislocation. Severe degenerative changes of the right hip. Lumbar: No acute fracture or dislocation. Moderate lower lumbar spondylopathy. Assessment/Plan: After examination and reviewing of the patient x-ray images, we discussed treatment options for the right hip. We discussed conservative measures versus surgical intervention. He would like to continue with conservative measures at this time. I am going to start him on oral prednisone then have him start a prescription strength anti-inflammatory. We also discussed cortisone injections into the hip joint. We also discussed surgical options. I did explain to the patient that if these conservative measures fail, that he would benefit from a right total hip replacement. The patient is not ready to discuss any type of surgery at this time therefore we will continue with conservative measures. I will see him back as needed. Diagnosis: Problem List Items Addressed This Visit None Visit Diagnoses Right hip pain Follow Up: [1] No Known Allergies [2] Current Outpatient Medications: losartan-hydrochlorothiazide (HYZAAR) 100-25 mg per tablet, , Disp: , Rfl: omega-3 fatty acids/fish oil (fish oil-omega-3 fatty acids) 300-1,000 mg capsule, Take 2 (two) capsules by mouth daily ., Disp: , Rfl: propranoloL (INDERAL LA) 120 MG 24 hr capsule, , Disp: , Rfl: rosuvastatin (CRESTOR) 10 MG tablet, , Disp: , Rfl: nabumetone (RELAFEN) 750 MG tablet, Take 1 (one) tablet (750 mg total) by mouth 2 (two) times a day ., Disp: 60 tablet, Rfl: 11 predniSONE (DELTASONE) 50 MG tablet, Take 1 (one) tablet (50 mg total) by mouth daily ., Disp: 5 tablet, Rfl: 0 [3] Social History Socioeconomic History Marital status: Tobacco Use Smoking status: Never Smokeless tobacco: Never Substance and Sexual Activity Alcohol use: Yes Drug use: Not Currently documented in this encounter [facility] 05-27-2024 Evaluation note Diagnosis Onset Date Resolution Essential tremor chronic May 272024 8:20am Hypertension chronic May 27, 2024 8:20am [facility] Work Phone: [phone] Radiology Diagnostic study note [facility] [address], [place] [id number] HIP, UNI W/ Pelvis 2-3 Views MR#: [id number] Acct: [id number] Name: BISI FORD Rep #: [id number] : 1965 M 59 From: Trinidad Schmidt MD PCP: Dr. Serenity Marcos MD Status: REG CLI Study:HIP, UNI W/ Pelvis 2-3 Views Date of Ex am: 05/20/24 Exam# [id number] Ordering Dr: Serenity Marcos MD EXAM: XR Right Hip With Pelvis When Performed, 2 or 3 Views CLINICAL INDICATION: PAIN TECHNIQUE: Two or three views of the right hip with pelvis when performed. COMPARISON: No relevant prior studies available. FINDINGS: BONES/JOINTS: Moderate degenerative changes of the hip joint. No acute fracture. No dislocation. SOFT TISSUES: Unremarkable. RAD/HIP, UNI W/ Pelvis 2-3 Views IMPRESSION: Degenerative changes as above. [facility] CC: Dr. 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 Diagnosis Primary osteoarthritis of right hip- Primary Right hip pain Pain in joint, pelvic region and thigh [facility] Diagnosis Primary osteoarthritis of right hip- [facility] Primary osteoarthritis of right hip- Primary [facility] Diagnosis Primary osteoarthritis of right hip- Primary [facility] Diagnosis Primary osteoarthritis of right hip- Primary [facility]* Diagnosis Primary osteoarthritis of right hip- Primary [facility]* Diagnosis Primary osteoarthritis of right hip- Primary [facility]* Diagnosis Primary osteoarthritis of right hip- Primary [facility]* Diagnosis Primary osteoarthritis of right hip- Primary [facility]* Diagnosis Primary osteoarthritis of right hip- Primary [facility]* Diagnosis Primary osteoarthritis of right hip- Primary Hypertension, unspecified type Blood tests prior to treatment or procedure Pre-procedural laboratory examination Primary osteoarthritis of right hip- Primary [facility]* Diagnosis Primary osteoarthritis of right hip- Primary Primary osteoarthritis of right hip- Primary Primary osteoarthritis of right hip [facility]* Diagnosis Primary osteoarthritis of right hip- Primary Primary osteoarthritis of right hip Preoperative cardiovascular examination- Primary Pre-operative cardiovascular examination Primary osteoarthritis of right hip Primary osteoarthritis of right hip [facility]* Diagnosis Primary osteoarthritis of right hip- Primary Primary osteoarthritis of right hip Primary osteoarthritis of right hip Hypertension, unspecified type Primary osteoarthritis of right hip [facility]* Diagnosis Status post total replacement of right hip- Primary [facility]* Diagnosis Status post total replacement of right hip- Primary [facility]* Diagnosis Status post total replacement of right hip- Primary documented in this encounter [facility] for referral (narrative)No reason for referral [facility] Work Phone: Summary Purpose Family History Relationship Condition Age at Onset Recorded Date/T sheryl mother Epilepsy Unknown Malignant neoplasm of lung Unknown father Malignant neoplasm of lung Unknown grandfather Cardiac disease Unknown uncle Cardiac disease Unknown grandmother Neoplasm of brain Unknown Advance Directives Date Activated Date Inactivated Comments 12/31/2024 9:11 AM 12/31/2024 8:15 PM Chief Complaint and Reason for Visit Chief Complaint TREMOR EORDER Reason for Visit Essential tremor Chief Complaint 6 month f/u Chief Complaint Admit Date EORDER-LABS/ HIP XRAY May 20, 2024 1 1:08am FOLLOW UP May 27, 2024 8:2 0am Reason for Visit Admit Date Essential tremor May 27, 2024 8:2 0am Hypertension May 27, 2024 8:2 0am Additional Source Comments (unrecognized sect ion and content) No Status Records FoundNo Status Records FoundNo Status Records FoundNo Status Records FoundNo Status Records FoundNo Status Records Found INFORMATION SOURCE (unrecogn ized section and content) DATE CREATED AUTHOR 08/29/2017 [facility] DATE CREATED AUTHOR AUTHOR'S ORGANIZ ATION 09/24/2022 [facility] DATE CREATED AUTHOR AUTHOR'S ORGANIZ ATION 06/30/2024 [facility] DATE CREATED AUTHOR AUTHOR'S ORGANIZ ATION 01/07/2025 [facility] DATE CREATED AUTHOR AUTHOR'S ORGANIZ ATION 01/17/2025 [facility] DATE CREATED AUTHOR AUTHOR'S ORGANIZ ATION 01/18/2025 [facility] Goals (unrecognized section and content) Goals may be documented in a n alternate sectionGoals may be documented in an alternate sectionGoals may be documented in an alternate sectionGoals may be documented in an alternate sectionGoals may be documented in an alternate section Care Teams (unrecognized sec tion and content) Team Status: Active Member Role Status Dates Dr. Serenity Marcos MD Family Provider Active Dr. Serenity Marcos MD Primary Care Provider Active Team Status: Inactive Member Role Status Dates Dr. Serenity Marcos MD Primary Care Provider, Referrin g Provider Active Dr. Franky Horta MD Attending Provider Active Team Status: Inactive Member Role Status Dates Dr. Serenity Marcos MD Primary Care Prov ider, Attending Provider, Referring Provider Active Team Status: Inactive Member Role Status Dates Dr. Serenity Marcos MD Primary Care Provider Active Dr. Franky Horta MD Attending Provider, Referring Provider Active Team Status: Inactive Member Role Status Dates Dr. Serenity Marcos MD Primary Care Provider Active Dr. Marlon Rivera MD Attending Provider, Referr ing Provider Active Team Status: Inactive Member Role Status Dates Dr. Serenity Marcos MD Primary Care Provider, Attendin g Provider Active Website Developer Relationship Specialty Start Date End Date Serenity Marcos MD [address] [place], [place] [id number] PCP - General Family Medicine 06/05/24 Team Status: Inactive Member Role Status Dates Dr. Serenity Marcos MD Primary Care Provider Active Start: May 20, 2024 End: May 20, 2024 Dr. Serenity Marcos MD Attending Provider Active Start: May 20, 2024 End: May 20, 2024 Dr. Serenity Marcos MD Referring Provider Active Start: May 20, 2024 End: May 20, 2024 Team Status: Inactive Member Role Status Dates Dr. Serenity Marcos MD Primary Care Provider Active Start: May 27, 2024 End: May 27, 2024 Dr. Serenity Marcos MD Referring Provider Active Start: May 27, 2024 End: May 27, 2024 Dr. Franky Horta MD Attending Provider Active Start: May 27, 2024 End: May 27, 2024 Website Developer Relationship Specialty Start Date End Date Serenity Marcos MD [address] [place], [place] [address] PCP - General Family Medicine 06/05/24 Website Developer Relationship Specialty Start Date End Date Serenity Marcos MD [address] [place], [place] [id number] PCP - General Family Medicine 06/05/24 Website Developer Relationship Specialty Start Date End Date Serenity Marcos MD [address] [place], [place] [phone] PCP - General Family Medicine 06/05/24 Website Developer Relationship Specialty Start Date End Date Serenity Marcos MD [address] [place] [address] PCP - General Family Medicine 06/05/24 Website Developer Relationship Specialty Start Date End Date Serenity Marcos MD [address] [place] [address] PCP - General Family Medicine 06/05/24 Website Developer Relationship Specialty Start Date End Date Serenity Marcos MD [address] [place] [address] PCP - General Family Medicine 06/05/24 Website Developer Relationship Specialty Start Date End Date Serenity Marcos MD [address] [place] [address] PCP - General Family Medicine 06/05/24 Website Developer Relationship Specialty Start Date End Date Serenity Marcos MD [address] [place] [address] PCP - General Family Medicine 06/05/24 Website Developer Relationship Specialty Start Date End Date Serenity Marcos MD [address] [place] [address] PCP - General Family Medicine 06/05/24 Website Developer Relationship Specialty Start Date End Date Serenity Marcos MD [address] [place] [address] PCP - General Family Medicine 06/05/24 Website Developer Relationship Specialty Start Date End Date Serenity Marcos MD [address] [place] [address] PCP - General Family Medicine 06/05/24 Website Developer Relationship Specialty Start Date End Date Serenity Marcos MD [address] [place] [address] PCP - General Family Medicine 06/05/24 Website Developer Relationship Specialty Start Date End Date Serenity Marcos MD [address] [place] [address] PCP - General Family Medicine 06/05/24 Website Developer Relationship Specialty Start Date End Date Serenity Marcos MD [address] [place] [address] PCP - General Family Medicine 06/05/24 Website Developer Relationship Specialty Start Date End Date Serenity Marcos MD [address] [place] [address] PCP - General Family Medicine 06/05/24 Website Developer Relationship Specialty Start Date End Date Serenity Marcos MD [address] [place] [address] PCP - General Family Medicine 06/05/24 Website Developer Relationship Specialty Start Date End Date Serenity Marcos MD [address] [place] [address] PCP - General Family Medicine 06/05/24 Website Developer Relationship Specialty Start Date End Date Serenity Marcos MD [address] [facility] [address] [place] [address] PCP - General Family Medicine 06/05/24 <item> Privacy Markings (unrecogniz ed section and content) Section Author: Indira Dutton PROHIBITION ON REDISCLOSURE OF CONFIDENTIAL INFORMATION This notice accompanies a disclosure of information concerning a client made to you with the consent of such client. Reason for Visit (unrecogniz ed section and content) Reason Comments Pain Specialty Diagnoses / Procedures Referred By Contac t Referred To Contact Sports Medicine Diagnoses Right hip pain Serenity Marcos MD [address] [facility] [address] [place] [address] Phone: tel: fax: Yvette Garrison, RICKY [address] [place] [address] Phone: tel: fax: Referral ID Status Reason Start Date Expiration Date Visits Re quested Visits Authorized [id number] Closed 06/05/2024 06/05/2025 1 1 Reason Comments Physical Therapy Specialty Diagnoses / Procedures Referred By Contac t Referred To Contact Rehabilitation Diagnoses Primary osteoarthritis of right hip Yvette Garrison, [facility] [address] [place] [address] Phone: tel: fax: [facility] [address] [place] [address] Phone: tel: fax: Referral ID Status Reason Start Date Expiration Date Visits Requested Visits Authorized [id number] Authorized Patient Preference 07/08/2024 07/08/2025 7 7 Reason Comments Follow-up Reason Comments Initial Visit (Intake) 12/31/24 right to [facility] replacement with Dr. Cervantes/ No cardiac symptoms Specialty Diagnoses / Procedures Referred By Noe faith Referred To Contact Cardiology Diagnoses Primary osteoarthritis of right hip Cristo Cervantes MD [address] [place] [address] Phone: tel: fax: [facility] [address] [place] [address], 3rd [place] [address] Phone: tel: fax: Referral ID Status Reason Start Date Expiration Date V isits Requested Visits Authorized [id number] Closed Specialty Services Required/April ent's Best Interest 09/05/2024 09/05/2025 1 1 Reason Onset Date Comments Medication Refill 01/16/2025 Reason Comments Follow-up Suture / Staple Removal FOR RECORDS PERTAINING TO PATIENTS WHO ARE OR HAVE BEEN ENROLLED IN A CHEMICAL DEPENDENCY/SUBSTANCEABUSE PROGRAM, SOME INFORMATION MAY BE OMITTED. This clinical summary was aggregated from multiple sources. Caution should be exercised in using it in the provision of clinical care. This summary normalizes information from multiple sources, and as a consequence, information in this document may materially change the coding, format and clinical context of patient data. In addition, data may be omitted in some cases. CLINICAL DECISIONS SHOULD BE BASED ON THE PRIMARY CLINICAL RECORDS. [employer] provides no warranty or guarantee of the accuracy or completeness of information in this document.
== END | disposition home or self-care (01) ==
LOC: MFPLAB 14:12
PROVIDERS: PCP Family Medicine; Visit Provider Family Medicine
DX: I10 Essential (primary) hypertension (principal)
CPT/HCPCS: 36415; 80053; 82043; 82570; 85025

== ENCOUNTER → 2025-02-16 | Outpatient (CLI) | payer BC, SELFPAY ==
[2025-02-16 10:37] LABS: PSA,Total- Diagnostic 3.62 ng/mL (0.00-4.00)
== END | disposition home or self-care (01) ==
LOC: LAB 09:32
PROVIDERS: PCP Family Medicine; Referring Provider Urology; Visit Provider Urology
DX: R97.20 Elevated prostate specific antigen [PSA] (principal)
CPT/HCPCS: 36415; 84153